=== PATIENT | male | born 1950 | race Caucasian/White ===

== ENCOUNTER → 2019-05-20 11:47 | Outpatient (BNVA) | payer OTHER, SELFPAY | PROVIDERS: Family Provider Internal Medicine; PCP Internal Medicine; Visit Provider Specialist | DX: M79.604 Pain in right leg (principal); M79.605 Pain in left leg; E11.9 Type 2 diabetes mellitus without complications; G60.9 Hereditary and idiopathic neuropathy, unspecified | CPT/HCPCS: 95913 ==

== ENCOUNTER 2019-05-27 05:38 | Outpatient (RCR) | payer OTHER, SELFPAY ==
[2019-05-22 18:20] LABS: Basophils # 0.1 10^3/uL (0.0-0.1); Eosinophils # 0.2 10^3/uL (0.0-0.8); Eosinophils % 2.1 %; Hematocrit 38.1 % (42.0-52.0); Hemoglobin 12.1 g/dL (11.7-16.6); Lymphocytes # 2.5 10^3/uL (0.8-4.8); Lymphocytes % 27.4 %; Mean Corpuscular HGB Conc 31.8 g/dL (30.0-36.0); Mean Corpuscular Hemoglobin 29.8 pg (28.0-34.0); Mean Corpuscular Volume 93.8 fL (80-94); Mean Platelet Volume 10.1 fL (7.4-10.4); Monocytes # 0.6 10^3/uL (0.2-0.9); Monocytes % 6.8 %; Neutrophils # 5.6 10^3/uL (1.8-7.7); Nucleated Red Blood Cells % 0 %; Platelet Count 232 10^3/cmm (130-400); Red Blood Count 4.06 10^6/uL (4.1-5.3); Red Cell Distribution Width 13.3 % (12.1-15.1); White Blood Count 9.1 10^3/uL (4.0-10.0)
[2019-05-23 00:09] LABS: Alanine Aminotransferase 16 U/L (0-41); Albumin Level 4.5 g/dL (3.5-5.2); Alkaline Phosphatase 83 IU/L (40-130); Anion Gap 21.3 (5-19); Aspartate Amino Transferase 17 U/L (0-40); Blood Urea Nitrogen 24 mg/dL (8-23); Calcium 9.9 mg/Dl (8.8-10.2); Carbon Dioxide 23 mmol/L (22-29); Chloride 96 mmol/L (98-107); Globulin 3.1 g/dL (1.3-4.6); Glucose 93 mg/dL (74-106); Potassium 4.3 mmol/L (3.5-5.1); Sodium 136 mmol/L (136-145); Total Bilirubin 0.3 mg/dL (0.15-1.2); Total Protein 7.6 g/dL (6.6-8.7)
--- NOTE | 2019-05-27 10:50 | ONC FU_ITS ---
Dr. Simental follow up note Patient: Amadeo Floyd Unit #: [id number]: 1950 Dicatated By: Sim Simental M.D.Date of Visit:May 27, 2019 Onc Med Follow-up/Prog Note History of Present Illness: Mr. Floyd is a 69-year-old gentleman who underwent colonoscopy at [facility] and was found to have a polyp. He was referred to Dr. Hernandez for repeat colonoscopy for polyp removal. The repeat colonoscopy was done on 12/20/2017 and showed nonobstructive medium-size, infiltrating, malignant appearing 5 cm x 3 cm mass in distal descending colon/hepatic flexure. A biopsy was obtained which confirmed adenocarcinoma. Subsequently, Mr Floyd underwent terminal ileum and colon right hemicolectomy on 01/01/2018. The mas was 5.5 x 4.7 x 1.5 cm and was 4 cm distal to the ileocecal valve. This pathology showed infiltrating adenocarcinoma, invading through muscularis propria into superficial serosal connective tissues and positive lymphovascular space invasion; 3 out of 17 lymph nodes were positive. KRAS mutation analysis was not requested at the time of surgery. Mr Floyd tolerated surgery well but developed postoperative complication including fever and wound dehiscence. He was followed by surgery and wound has healed well. CT scan of abdomen done on 12/20/2017 showed colonic wall thickening of ascending colon near hepatic flexure and no liver mass seen. Dr Simental evaluated Mr Floyd and offered him treatment with FOLFOX. Mr Floyd elected to proceed with chemotherapy. He had a left subclavian venous access device placed by Dr. Hernandez on 03/19/2018. He began his first cycle of FOLFOX on 03/26/2018. and completed 12 cycles of FOLFOX on 08/28/18 He did have follow-up CT of the abdomen and pelvis on 05/29/2018. He had numerous right renal cyst the largest measures 3.5 cm. There was no inguinal, retroperitoneal or periaortic lymphadenopathy. No hydronephrosis in either kidney. There are few prominent lymph nodes along the mesenteric root with some induration in the mesentery. He did have diverticulosis but no acute diverticulitis-no evidence of small or large bowel obstruction. Came for follow-up, denies any specific complaints, no nausea vomiting, no fever or chills, no jaundice, no abdominal pain but excessive gas now being controlled with [id number] anti-flatulence. No melena hematochezia, no diarrhea constipation. Appetite is good . Medications: Amitriptyline HCl 1 Tablet (of 10 mg) Oral at bedtime, BuPROPion HCl ER (XL) 1 Tablet (of 300 mg) Tablet SR 24 HR Oral daily, dilTIAZem HCl 1 Tablet (of 30 mg) Oral daily, Doxazosin Mesylate 0.5 Tablet (of 4 mg) Oral daily, Finasteride 1 Tablet (of 5 mg) Oral daily, Fluocinonide Cream Topical, Gabapentin 1 Capsule (of 300 mg) Oral t.i.d., HydroCHLOROthiazide 1 Tablet (of 25 mg) Oral daily, Insulin Glargine 35 Units (of 100 Units/mL) Subcutaneous daily, Loratadine 1 Tablet (of 10 mg) Oral daily, Losartan Potassium 1 Tablet (of 100 mg) Oral daily, MetFORMIN HCl 1 Tablet (of 850 mg) Oral t.i.d., Omeprazole 1 Capsule (of 20 mg) Capsule Delayed Release Oral daily, OxyCODONE HCl 1 Tablet (of 30 mg) Oral q 6 hours, Pravastatin Sodium 1 Tablet (of 80 mg) Oral daily, Vitamin D3 1 Tablet (of 2000 Units) Capsule Oral daily Allergies: Sulfa Antibiotics Review of Systems: Constitutional - Appetite is good and weight is stable. No fever, chills, hot flashes, or night sweats. Energy level is fair, ENMT - No sinus congestion/drainage. No mouth sores. No sore throat or difficulty swallowing, Hematologic/Lymphatic - No abnormal bruising or bleeding, Respiratory - No shortness of breath. No cough. No pleuritic pain or hemoptysis, Cardiovascular - No angina pain. No palpitations, Gastrointestinal - No nausea or vomiting. No heartburn or acid reflux. Negative for diarrhea. No blood in the stool or black stools. Positive for excessive gas, Genitourinary (M) - No dysuria or hematuria. No urinary frequency. No urgency or incontinence, Musculoskeletal - No joint or bone pain, Neurologic - No headache or dizziness. Pt reports moderate numbness in his hands, Psychiatric - No anxiety or depression. No insomnia. Vital Signs: Performed on May 27, 2019 08:27 Height - 69.00 in Weight - 215.3 lbs (HIGH) BSA - 2.13 sq.m BMI - 31.79 (HIGH) Temperature - 98.2 F (LOW) Pulse - 68 /min Respiration - 18 /min BP - 148/78 mm(hg) (HIGH) O2 Sat - 97 % Pain - 0 Performance Status: 1 - No physically strenuous activity, but ambulatory and able to carry out light or sedentary work (e.g. office work, light house work). (ECOG) Physical Examination: ENMT - No oral exudates, ulcers, masses, thrush or mucositis. Oropharynx clear. Tongue normal, Respiratory - Lungs are clear to auscultation without rhonchi or wheezing, Cardiovascular - Regular rate and rhythm of heart, Abdomen - Non-tender, non-distended, Good bowel sounds. No guarding or rebound tenderness. No pulsatile masses, Extremities - no edema. Lab/Imaging: Test performed on May 22, 2019 07:35 Neutrophils 0.1 10 3/uL Neutrophil % 2.1 % Test performed on Jan 08, 2019 08:10 Sodium 137 mmol/L Potassium 4.5 mmol/L Chloride 98 mmol/L CO2 25 mmol/L Anion Gap 18.5 BUN 21 mg/dL Creatinine 1.4 mg/dL Cr Clearance (Est) 68.6100 mL/min eGFR 50.1 mL/min Glucose 102 mg/dl Calcium 9.3 mg/dL Protein, Total 7.6 g/dL Albumin 4.4 g/dL Globulin 3.2 gm/dL Bilirubin, Total 0.3 mg/dL ALT (SGPT) 18 U/L AST (SGOT) 18 U/L Alkaline Phosphatase 101 U/L WBC 7.8 /cmm RBC 3.90 10 6/cmm HGB 12.1 g/dl HCT 36.3 % MCV 93.3 /cmm MCH 31.1 pg MCHC 33.3 g/dl RDW 13.7 % Platelet Count 240 10 3/cmm MPV 7.8 fl Lymphocytes 2.4 10 3/cmm Monocytes 0.5 10 3/cmm Eosinophils 0.1 10 3/cmm Basophils 0.0 10 3/cmm Lymphocyte % 30.3 % Monocyte % 6.6 % Eosinophil % 1.5 % Basophils % 0.5 % Impression: Infiltrating adenocarcinoma involving the right colon status post terminal ileum and colon, right hemicolectomy done on 01/01/2018 Final pathology report showed invasion through muscularis propria into superficial serosal connective tissues T3 Tumor size 5.5 x 4.7 x 1.5 cm Positive lymphovascular space invasion 3 out of 17 lymph node positive for metastatic disease N1 stage IIIa Anemia normocytic normochromic, etiology unclear could be multifactorial including iron deficiency, considering his age underlying myelodysplasia cannot be ruled out. discussed disease status and treatment options iith Mr Floyd. As he does have stage III disease, he is a candidate for adjuvant chemotherapy with FOLFOX. Mr Floyd agreed to pursue chemotherapy. He had a left-sided venous access device placed Dr. Hernandez on 03/19/2018 and began his first cycle of FOLFOX on 03/26/2018..Completed his adjuvant chemotherapy with FOLFOX ???12 on 08/28/2018 He did have follow-up CT of the abdomen and pelvis on 05/29/2018. . The CT reported that he had numerous right renal cyst the largest measures 3.5 cm. There was no inguinal, retroperitoneal or periaortic lymphadenopathy. No hydronephrosis in either kidney. There are few prominent lymph nodes along the mesenteric root with some induration in the mesentery. He did have diverticulosis but no acute diverticulitis-no evidence of small or large bowel obstruction Plan: Discussed with patient regarding his labs done on 05/22/2019 showed white blood count 9.1 hemoglobin 12.1 crit 38.1 platelets 232,000 CMP within normal limits Clinically, patient is doing well, no signs symptoms suggestive of recurrence of disease. As per patient his follow-up colonoscopy was done in April 2019 and it was normal. We will obtain the report and review. We will continue to monitor He will return to clinic in 6 months with CBC CMP. Unless there is a new symptoms, like jaundice or melena or hematochezia or abdominal pain.In the meantime we'll continue with monthly port Maintenance Signed By: Sim Simental M.D. <<Signature on File>>
== END 2019-06-14 23:59 | disposition home or self-care (01) ==
LOC: ONCMED 05:38
PROVIDERS: Family Provider Internal Medicine; PCP Internal Medicine; Visit Provider Internal Medicine Hematology & Oncology
DX: Z08 Encounter for follow-up examination after completed treatment for malignant neoplasm (principal); Z85.038 Personal history of other malignant neoplasm of large intestine; Z90.49 Acquired absence of other specified parts of digestive tract; Z92.21 Personal history of antineoplastic chemotherapy; K57.90 Diverticulosis of intestine, part unspecified, without perforation or abscess without bleeding; Z79.4 Long term (current) use of insulin; Z79.891 Long term (current) use of opiate analgesic
CPT/HCPCS: 80053; 85025; G0463

== ENCOUNTER 2019-06-28 06:03 | Outpatient (RCR) | payer OTHER, SELFPAY | END 2019-07-13 23:59 | disposition home or self-care (01) | LOC: ONCMED 06:03 | PROVIDERS: Family Provider Internal Medicine; PCP Internal Medicine; Visit Provider Internal Medicine Hematology & Oncology | DX: Z45.2 Encounter for adjustment and management of vascular access device (principal) | CPT/HCPCS: 96523 ==

== ENCOUNTER 2019-07-26 06:00 | Outpatient (RCR) | payer OTHER, SELFPAY | END 2019-08-13 23:59 | disposition home or self-care (01) | LOC: ONCMED 06:00 | PROVIDERS: Family Provider Internal Medicine; PCP Internal Medicine; Visit Provider Internal Medicine Hematology & Oncology | DX: Z45.2 Encounter for adjustment and management of vascular access device (principal) | CPT/HCPCS: 96523 ==

== ENCOUNTER → 2019-07-31 07:41 | Outpatient (BNVA) | payer OTHER, SELFPAY | PROVIDERS: Family Provider Internal Medicine; PCP Internal Medicine; Visit Provider Specialist | DX: M79.7 Fibromyalgia (principal); E53.8 Deficiency of other specified B group vitamins; G62.9 Polyneuropathy, unspecified; G56.03 Carpal tunnel syndrome, bilateral upper limbs; Z87.891 Personal history of nicotine dependence | CPT/HCPCS: 99214; J1030; J3490 ==

== ENCOUNTER 2019-08-26 07:07 | Outpatient (RCR) | payer OTHER, SELFPAY | END 2019-09-12 23:59 | disposition home or self-care (01) | LOC: ONCMED 07:07 | PROVIDERS: Family Provider Internal Medicine; PCP Internal Medicine; Visit Provider Internal Medicine Hematology & Oncology | DX: Z45.2 Encounter for adjustment and management of vascular access device (principal); Z85.038 Personal history of other malignant neoplasm of large intestine | CPT/HCPCS: 96523 ==

== ENCOUNTER 2019-09-25 07:09 | Outpatient (RCR) | payer OTHER, SELFPAY | END 2019-10-13 23:59 | disposition home or self-care (01) | LOC: ONCMED 07:09 | PROVIDERS: PCP Internal Medicine; Visit Provider Internal Medicine Hematology & Oncology | DX: Z45.2 Encounter for adjustment and management of vascular access device (principal); Z85.038 Personal history of other malignant neoplasm of large intestine | CPT/HCPCS: 96523 ==

== ENCOUNTER 2019-10-25 06:59 | Outpatient (CLI) | payer OTHER, SELFPAY | END 2019-10-25 07:00 | disposition home or self-care (01) | PROVIDERS: PCP Internal Medicine; Visit Provider Internal Medicine Hematology & Oncology | DX: Z45.2 Encounter for adjustment and management of vascular access device (principal); Z85.038 Personal history of other malignant neoplasm of large intestine; K52.1 Toxic gastroenteritis and colitis | CPT/HCPCS: 96523 ==

== ENCOUNTER → 2019-11-06 08:43 | Outpatient (BNVA) | payer OTHER, SELFPAY | PROVIDERS: PCP Internal Medicine; Visit Provider Specialist | DX: E53.8 Deficiency of other specified B group vitamins (principal); M79.7 Fibromyalgia; R29.90 Unspecified symptoms and signs involving the nervous system; G60.9 Hereditary and idiopathic neuropathy, unspecified | CPT/HCPCS: 20550; 99213; J1030; J3490 ==

== ENCOUNTER 2019-11-22 09:55 | Outpatient (CLI) | payer OTHER, SELFPAY ==
[2019-11-22 14:38] LABS: Basophils # 0.1 10^3/uL (0.0-0.1); Basophils % 0.8 %; Eosinophils # 0.1 10^3/uL (0.0-0.8); Eosinophils % 1.2 %; Hematocrit 38.7 % (42.0-52.0); Hemoglobin 12.5 g/dL (11.7-16.6); Lymphocytes # 3.8 10^3/uL (0.8-4.8); Lymphocytes % 35.3 %; Mean Corpuscular HGB Conc 32.3 g/dL (30.0-36.0); Mean Corpuscular Hemoglobin 30.4 pg (28.0-34.0); Mean Corpuscular Volume 94.2 fL (80-94); Monocytes # 0.8 10^3/uL (0.2-0.9); Monocytes % 7.7 %; Neutrophils % 54.4 %; Nucleated Red Blood Cells % 0 %; Platelet Count 264 10^3/cmm (130-400); Red Blood Count 4.11 10^6/uL (4.1-5.3); White Blood Count 10.9 10^3/uL (4.0-10.0)
[2019-11-22 14:57] LABS: Alanine Aminotransferase 22 U/L (0-41); Albumin Level 4.6 g/dL (3.5-5.2); Alkaline Phosphatase 65 IU/L (40-130); Aspartate Amino Transferase 23 U/L (0-40); Blood Urea Nitrogen 19 mg/dL (8-23); Carbon Dioxide 24 mmol/L (22-29); Chloride 97 mmol/L (98-107); Globulin 3.3 g/dL (1.3-4.6); Osmolality Calculated 277 mOsm/kg (285-295); Sodium 137 mmol/L (136-145); Total Bilirubin 0.4 mg/dL (0.15-1.2); Total Protein 7.9 g/dL (6.6-8.7)
[2019-11-22 15:06] LABS: Anion Gap 20.2 (5-19); Potassium 4.2 mmol/L (3.5-5.1)
[2019-11-22 15:09] LABS: Glucose 27 mg/dL (65-115)
== END 2019-11-22 09:56 | disposition home or self-care (01) ==
LOC: ONCMED 15:03
PROVIDERS: PCP Internal Medicine; Visit Provider Internal Medicine Hematology & Oncology
DX: Z85.038 Personal history of other malignant neoplasm of large intestine (principal); K52.1 Toxic gastroenteritis and colitis; T45.1X5A Adverse effect of antineoplastic and immunosuppressive drugs, initial encounter; F41.9 Anxiety disorder, unspecified; F32.9 Major depressive disorder, single episode, unspecified; E78.5 Hyperlipidemia, unspecified; I10 Essential (primary) hypertension; K58.9 Irritable bowel syndrome, unspecified; L40.9 Psoriasis, unspecified; E11.9 Type 2 diabetes mellitus without complications
CPT/HCPCS: 80053; 85025

== ENCOUNTER 2019-11-25 07:42 | Outpatient (CLI) | payer OTHER, SELFPAY ==
--- NOTE | 2019-11-25 17:08 | ONC FU_ITS ---
Dr. Simental follow up note Patient: Amadeo Floyd Unit #: [id number]: 1950 Dicatated By: Sim Simental M.D.Date of Visit:Nov 25, 2019 Onc Med Follow-up/Prog Note History of Present Illness: Mr. Floyd is a 69-year-old gentleman who underwent colonoscopy at [facility] and was found to have a polyp. He was referred to Dr. Hernandez for repeat colonoscopy for polyp removal. The repeat colonoscopy was done on 12/20/2017 and showed nonobstructive medium-size, infiltrating, malignant appearing 5 cm x 3 cm mass in distal descending colon/hepatic flexure. A biopsy was obtained which confirmed adenocarcinoma. Subsequently, Mr Floyd underwent terminal ileum and colon right hemicolectomy on 01/01/2018. The mas was 5.5 x 4.7 x 1.5 cm and was 4 cm distal to the ileocecal valve. This pathology showed infiltrating adenocarcinoma, invading through muscularis propria into superficial serosal connective tissues and positive lymphovascular space invasion; 3 out of 17 lymph nodes were positive. KRAS mutation analysis was not requested at the time of surgery. Mr Floyd tolerated surgery well but developed postoperative complication including fever and wound dehiscence. He was followed by surgery and wound has healed well. CT scan of abdomen done on 12/20/2017 showed colonic wall thickening of ascending colon near hepatic flexure and no liver mass seen. evaluated Mr Floyd and offered him treatment with FOLFOX. Mr Floyd elected to proceed with chemotherapy. He had a left subclavian venous access device placed by Dr. Hernandez on 03/19/2018. He began his first cycle of FOLFOX on 03/26/2018. and completed 12 cycles of FOLFOX on 4/16/19 He did have follow-up CT of the abdomen and pelvis on 05/29/2018. He had numerous right renal cyst the largest measures 3.5 cm. There was no inguinal, retroperitoneal or periaortic lymphadenopathy. No hydronephrosis in either kidney. There are few prominent lymph nodes along the mesenteric root with some induration in the mesentery. He did have diverticulosis but no acute diverticulitis-no evidence of small or large bowel obstruction. Came for follow-up, denies any specific complaints, no fever chills, no nausea or vomiting no diarrhea constipation, on Monday lab called me in the afternoon with severe hypoglycemia his glucose was 27, patient was called twice but no response. As per patient when labs were drawn day before at that time he was feeling weak and shaky so he took some strawberry jam and that did help him after that on Monday he was fine. Patient said his blood sugar has been going up and down and his PMD is adjusting his antidiabetic medications. Otherwise denies any melena or hematochezia denies any nausea or vomiting denies any diarrhea now as it responded well to the rice powder prescribed by his PMD. . Medications: Amitriptyline HCl 1 Tablet (of 10 mg) Oral at bedtime, BuPROPion HCl ER (XL) 1 Tablet (of 150 mg) Tablet SR 24 HR Oral daily, dilTIAZem HCl 1 Tablet (of 120 mg) Oral daily, Doxazosin Mesylate 0.5 Tablet (of 4 mg) Oral daily, Etodolac 1 Capsule (of 300 mg) Oral b.i.d., Ferrous Sulfate 1 Tablet (of 325 (65 fe) mg) Oral daily, Finasteride 1 Tablet (of 5 mg) Oral daily, Fluocinonide Cream Topical, Gabapentin 1 Capsule (of 300 mg) Oral t.i.d., HydroCHLOROthiazide 1 Tablet (of 25 mg) Oral daily, Insulin Glargine 35 Units (of 100 Units/mL) Subcutaneous daily, Loratadine 1 Tablet (of 10 mg) Oral daily, Losartan Potassium 1 Tablet (of 100 mg) Oral daily, Lyrica 1 Capsule (of 75 mg) Oral b.i.d., MetFORMIN HCl 1 Tablet (of 850 mg) Oral t.i.d., Omeprazole 1 Capsule (of 20 mg) Capsule Delayed Release Oral daily, OxyCODONE HCl 1 Tablet (of 30 mg) Oral q 6 hours, Pravastatin Sodium 1 Tablet (of 80 mg) Oral daily, Vitamin D3 1 Tablet (of 2000 Units) Capsule Oral daily Allergies: Sulfa Antibiotics Review of Systems: Constitutional - Appetite is good and weight is stable. No fever, chills, hot flashes, or night sweats. Energy level is fair, ENMT - No sinus congestion/drainage. No mouth sores. No sore throat or difficulty swallowing, Hematologic/Lymphatic - No abnormal bruising or bleeding, Respiratory - No shortness of breath. No cough. No pleuritic pain or hemoptysis, Cardiovascular - No angina pain. No palpitations, Gastrointestinal - No nausea or vomiting. No heartburn or acid reflux. Negative for diarrhea. No blood in the stool or black stools. Positive for excessive gas, Genitourinary (M) - No dysuria or hematuria. No urinary frequency. No urgency or incontinence, Musculoskeletal - No joint or bone pain, Neurologic - No headache or dizziness. Pt reports moderate numbness in his hands, Psychiatric - No anxiety or depression. No insomnia. Vital Signs: Performed on Nov 25, 2019 08:46 Height - 69.00 in Weight - 218.6 lbs (HIGH) BSA - 2.15 sq.m BMI - 32.28 (HIGH) Temperature - 97.9 F (LOW) Pulse - 68 /min Respiration - 24 /min BP - 144/79 mm(hg) (HIGH) O2 Sat - 97 % Pain - 0 Performance Status: 0 - Fully active, able to carry on all predisease activities without restrictions. (ECOG) Physical Examination: ENMT - No mouth sores, no thrush, no jaundice, Respiratory - Lungs are clear, Cardiovascular - Regular rate and rhythm of heart, Abdomen - Soft, bowel sounds present, nontender, Extremities - No visible edema. Lab/Imaging: Most recent lab results are not available for this patient. Impression: Infiltrating adenocarcinoma involving the right colon status post terminal ileum and colon, right hemicolectomy done on 01/01/2018 Final pathology report showed invasion through muscularis propria into superficial serosal connective tissues T3 Tumor size 5.5 x 4.7 x 1.5 cm Positive lymphovascular space invasion 3 out of 17 lymph node positive for metastatic disease N1 stage IIIa Anemia normocytic normochromic, etiology unclear could be multifactorial including iron deficiency, considering his age underlying myelodysplasia cannot be ruled out. discussed disease status and treatment options iith Mr Floyd. As he does have stage III disease, he is a candidate for adjuvant chemotherapy with FOLFOX. Mr Floyd agreed to pursue chemotherapy. He had a left-sided venous access device placed Dr. Hernandez on 03/19/2018 and began his first cycle of FOLFOX on 03/26/2018..Completed his adjuvant chemotherapy with FOLFOX ???12 on 08/28/2018 He did have follow-up CT of the abdomen and pelvis on 05/29/2018. . The CT reported that he had numerous right renal cyst the largest measures 3.5 cm. There was no inguinal, retroperitoneal or periaortic lymphadenopathy. No hydronephrosis in either kidney. There are few prominent lymph nodes along the mesenteric root with some induration in the mesentery. He did have diverticulosis but no acute diverticulitis-no evidence of small or large bowel obstruction Plan: Discussed with patient regarding his labs checked on November 22, 2019 white blood count 10.9 hemoglobin 12.5 g hematocrit 38.7 platelets 264,000 CMP within normal limit except glucose was 27 Clinically, patient is doing well, no signs symptom suggestive of recurrence of disease. At this point we will continue to monitor in the meantime he will continue with monthly port maintenance and he will return to clinic in 4 months with CBC CMP As far as episode of hypoglycemia is concerned, patient said his blood sugar has been fluctuating, and his PMD is adjusting his antidiabetic medications. Signed By: Sim Simental M.D. <<Signature on File>>
== END 2019-11-25 07:43 | disposition home or self-care (01) ==
LOC: ONCMED 07:43
PROVIDERS: Visit Provider Internal Medicine Hematology & Oncology
DX: Z08 Encounter for follow-up examination after completed treatment for malignant neoplasm (principal); Z85.038 Personal history of other malignant neoplasm of large intestine; Z45.2 Encounter for adjustment and management of vascular access device; K57.30 Diverticulosis of large intestine without perforation or abscess without bleeding; Z90.49 Acquired absence of other specified parts of digestive tract; Z92.21 Personal history of antineoplastic chemotherapy
CPT/HCPCS: 96523; G0463

== ENCOUNTER 2019-12-27 07:33 | Outpatient (CLI) | payer OTHER, SELFPAY | END 2019-12-27 07:34 | disposition home or self-care (01) | LOC: ONCMED 07:34 | PROVIDERS: Visit Provider Internal Medicine Hematology & Oncology | DX: Z45.2 Encounter for adjustment and management of vascular access device (principal) | CPT/HCPCS: 96523 ==

== ENCOUNTER 2020-01-24 06:10 | Outpatient (CLI) | payer OTHER, SELFPAY | END 2020-01-24 06:11 | disposition home or self-care (01) | LOC: ONCMED 06:11 | PROVIDERS: Visit Provider Internal Medicine Hematology & Oncology | DX: Z45.2 Encounter for adjustment and management of vascular access device (principal) | CPT/HCPCS: 96523 ==

== ENCOUNTER 2020-02-25 06:02 | Outpatient (CLI) | payer OTHER, SELFPAY | END 2020-02-25 06:03 | disposition home or self-care (01) | LOC: ONCMED 06:03 | PROVIDERS: Visit Provider Internal Medicine Hematology & Oncology | DX: Z45.2 Encounter for adjustment and management of vascular access device (principal) | CPT/HCPCS: 96523 ==

== ENCOUNTER 2020-04-14 07:31 | Outpatient (CLI) | payer OTHER, SELFPAY ==
[2020-04-14 08:35] LABS: Basophils # 0.1 10^3/uL (0.0-0.1); Basophils % 0.8 %; Eosinophils # 0.2 10^3/uL (0.0-0.8); Eosinophils % 2.3 %; Hematocrit 38.2 % (42.0-52.0); Lymphocytes # 2.2 10^3/uL (0.8-4.8); Lymphocytes % 29.8 %; Mean Corpuscular HGB Conc 31.4 g/dL (30.0-36.0); Mean Corpuscular Hemoglobin 29.5 pg (28.0-34.0); Mean Corpuscular Volume 93.9 fL (80-94); Mean Platelet Volume 9.2 fL (7.4-10.4); Monocytes # 0.6 10^3/uL (0.2-0.9); Monocytes % 8.1 %; Neutrophils # 4.27 10^3/uL (1.8-7.7); Neutrophils % 58.3 %; Nucleated Red Blood Cells % 0 %; Platelet Count 219 10^3/cmm (130-400); Red Blood Count 4.07 10^6/uL (4.1-5.3); Red Cell Distribution Width 13.4 % (12.1-15.1); White Blood Count 7.3 10^3/uL (4.0-10.0)
[2020-04-14 08:56] LABS: Alanine Aminotransferase 19 U/L (0-41); Albumin Level 4.5 g/dL (3.5-5.2); Alkaline Phosphatase 76 IU/L (40-130); Anion Gap 19.1 (5-19); Aspartate Amino Transferase 16 U/L (0-40); Blood Urea Nitrogen 18 mg/dL (8-23); Calcium 9.8 mg/dL (8.5-10.5); Carbon Dioxide 25 mmol/L (22-29); Chloride 98 mmol/L (98-107); Globulin 2.8 g/dL (1.3-4.6); Glucose 142 mg/dL (65-115); Osmolality Calculated 290 mOsm/kg (285-295); Potassium 4.1 mmol/L (3.5-5.1); Sodium 138 mmol/L (136-145); Total Bilirubin 0.2 mg/dL (0.15-1.2); Total Protein 7.3 g/dL (6.6-8.7)
== END 2020-04-14 07:32 | disposition home or self-care (01) ==
LOC: ONCMED 07:31
PROVIDERS: Visit Provider Internal Medicine Hematology & Oncology
DX: Z45.2 Encounter for adjustment and management of vascular access device (principal); Z85.038 Personal history of other malignant neoplasm of large intestine
CPT/HCPCS: 36415; 80053; 85025; 96523

== ENCOUNTER 2020-04-16 05:31 | Outpatient (CLI) | payer OTHER, SELFPAY ==
--- NOTE | 2020-04-16 09:14 | ONC FU_ITS ---
Dr. Simental follow up note Patient: Amadeo Floyd Unit #: [id number]: 1950 Dicatated By: Sim Simental M.D.Date of Visit:Apr 16, 2020 Onc Med Follow-up/Prog Note History of Present Illness: Mr. Floyd is a 70-year-old gentleman who underwent colonoscopy at [facility] and was found to have a polyp. He was referred to Dr. Hernandez for repeat colonoscopy for polyp removal. The repeat colonoscopy was done on 12/20/2017 and showed nonobstructive medium-size, infiltrating, malignant appearing 5 cm x 3 cm mass in distal descending colon/hepatic flexure. A biopsy was obtained which confirmed adenocarcinoma. Subsequently, Mr Floyd underwent terminal ileum and colon right hemicolectomy on 01/01/2018. The mas was 5.5 x 4.7 x 1.5 cm and was 4 cm distal to the ileocecal valve. This pathology showed infiltrating adenocarcinoma, invading through muscularis propria into superficial serosal connective tissues and positive lymphovascular space invasion; 3 out of 17 lymph nodes were positive. KRAS mutation analysis was not requested at the time of surgery. Mr Floyd tolerated surgery well but developed postoperative complication including fever and wound dehiscence. He was followed by surgery and wound has healed well. CT scan of abdomen done on 12/20/2017 showed colonic wall thickening of ascending colon near hepatic flexure and no liver mass seen. evaluated Mr Floyd and offered him treatment with FOLFOX. Mr Floyd elected to proceed with chemotherapy. He had a left subclavian venous access device placed by Dr. Hernandez on 03/19/2018. He began his first cycle of FOLFOX on 03/26/2018. and completed 12 cycles of FOLFOX on 4/16/19 He did have follow-up CT of the abdomen and pelvis on 05/29/2018. He had numerous right renal cyst the largest measures 3.5 cm. There was no inguinal, retroperitoneal or periaortic lymphadenopathy. No hydronephrosis in either kidney. There are few prominent lymph nodes along the mesenteric root with some induration in the mesentery. He did have diverticulosis but no acute diverticulitis-no evidence of small or large bowel obstruction. Came for follow-up, denies any specific complaint except off and on diarrhea especially with fried food and [facility] send him a special 'drink' for diarrhea, which he takes in the morning but does remember the name, probably probiotics. No constipation, no jaundice, no melena or hematochezia, no hemoptysis or hematemesis, no abdominal pain except off and on discomfort in the left abdominal wall. No fever chills, appetite is good . Medications: Amitriptyline HCl 1 Tablet (of 10 mg) Oral at bedtime, BuPROPion HCl ER (XL) 1 Tablet (of 150 mg) Tablet SR 24 HR Oral daily, dilTIAZem HCl 1 Tablet (of 120 mg) Oral daily, Doxazosin Mesylate 0.5 Tablet (of 4 mg) Oral daily, Etodolac 1 Capsule (of 300 mg) Oral b.i.d., Ferrous Sulfate 1 Tablet (of 325 (65 fe) mg) Oral daily, Finasteride 1 Tablet (of 5 mg) Oral daily, Fluocinonide Cream Topical, Gabapentin 1 Capsule (of 300 mg) Oral t.i.d., HydroCHLOROthiazide 1 Tablet (of 25 mg) Oral daily, Insulin Glargine 35 Units (of 100 Units/mL) Subcutaneous daily, Loratadine 1 Tablet (of 10 mg) Oral daily, Losartan Potassium 1 Tablet (of 100 mg) Oral daily, Lyrica 1 Capsule (of 75 mg) Oral b.i.d., MetFORMIN HCl 1 Tablet (of 850 mg) Oral t.i.d., Omeprazole 1 Capsule (of 20 mg) Capsule Delayed Release Oral daily, OxyCODONE HCl 1 Tablet (of 30 mg) Oral q 6 hours, Pravastatin Sodium 1 Tablet (of 80 mg) Oral daily, Vitamin D3 1 Tablet (of 2000 Units) Capsule Oral daily Allergies: Sulfa Antibiotics Review of Systems: Constitutional - Appetite is good and weight is stable. No fever, chills, hot flashes, or night sweats. Energy level is fair, ENMT - No sinus congestion/drainage. No mouth sores. No sore throat or difficulty swallowing, Hematologic/Lymphatic - No abnormal bruising or bleeding, Respiratory - No shortness of breath. No cough. No pleuritic pain or hemoptysis, Cardiovascular - No angina pain. No palpitations, Gastrointestinal - No nausea or vomiting. No heartburn or acid reflux. Negative for diarrhea. No blood in the stool or black stools. Positive for excessive gas, Genitourinary (M) - No dysuria or hematuria. No urinary frequency. No urgency or incontinence, Musculoskeletal - No joint or bone pain, Neurologic - No headache or dizziness. Pt reports moderate numbness in his hands, Psychiatric - No anxiety or depression. No insomnia. Vital Signs: Performed on Apr 16, 2020 08:28 Height - 69.00 in Weight - 220.8 lbs (HIGH) BSA - 2.15 sq.m BMI - 32.61 (HIGH) Temperature - 98.4 F Pulse - 72 /min Respiration - 20 /min BP - 150/79 mm(hg) (HIGH) O2 Sat - 97 % Pain - 0 Performance Status: 0 - Fully active, able to carry on all predisease activities without restrictions. (ECOG) Physical Examination: ENMT - No mouth sores, no thrush, no jaundice, Respiratory - Lungs are clear to auscultation, Cardiovascular - Regular rate and rhythm of heart, Abdomen - Soft, bowel sounds present, Extremities - No visible edema. Lab/Imaging: Test performed on Nov 22, 2019 09:55 Sodium 137 mmol/L Potassium 4.2 mmol/L Chloride 97 mmol/L CO2 24 mmol/L Anion Gap 20.2 BUN 19 mg/dL Creatinine 1.1 mg/dL Cr Clearance (Est) 86.0700 mL/min Glucose 27 mg/dL Calcium 10.0 mg/dL Protein, Total 7.9 g/dL Albumin 4.6 g/dL Globulin 3.3 g/dL Bilirubin, Total 0.4 mg/dL ALT (SGPT) 22 U/L AST (SGOT) 23 U/L Alkaline Phosphatase 65 IU/L WBC 10.9 10 3/uL RBC 4.11 10 6/uL HGB 12.5 g/dL HCT 38.7 % MCV 94.2 fL MCH 30.4 pg MCHC 32.3 g/dL RDW 14.0 % Platelet Count 264 10 3/cmm MPV 10.0 fL Neutrophils 5.90 10 3/uL Lymphocytes 3.8 10 3/uL Monocytes 0.8 10 3/uL Eosinophils 0.1 10 3/uL Basophils 0.1 10 3/uL Neutrophil % 54.4 % Lymphocyte % 35.3 % Monocyte % 7.7 % Eosinophil % 1.2 % Basophils % 0.8 % NRBC % 0 % Impression: Infiltrating adenocarcinoma involving the right colon status post terminal ileum and colon, right hemicolectomy done on 01/01/2018 Final pathology report showed invasion through muscularis propria into superficial serosal connective tissues T3 Tumor size 5.5 x 4.7 x 1.5 cm Positive lymphovascular space invasion 3 out of 17 lymph node positive for metastatic disease N1 stage IIIa Anemia normocytic normochromic, etiology unclear could be multifactorial including iron deficiency, considering his age underlying myelodysplasia cannot be ruled out. discussed disease status and treatment options iith Mr Floyd. As he does have stage III disease, he is a candidate for adjuvant chemotherapy with FOLFOX. Mr Floyd agreed to pursue chemotherapy. He had a left-sided venous access device placed Dr. Hernandez on 03/19/2018 and began his first cycle of FOLFOX on 03/26/2018..Completed his adjuvant chemotherapy with FOLFOX ???12 on 08/28/2018 He did have follow-up CT of the abdomen and pelvis on 05/29/2018. . The CT reported that he had numerous right renal cyst the largest measures 3.5 cm. There was no inguinal, retroperitoneal or periaortic lymphadenopathy. No hydronephrosis in either kidney. There are few prominent lymph nodes along the mesenteric root with some induration in the mesentery. He did have diverticulosis but no acute diverticulitis-no evidence of small or large bowel obstruction Plan: Discussed with patient regarding his labs white blood count 7.3 hemoglobin 12 hematocrit 38.2 platelets 219,000 CMP within normal limits except glucose 142 Clinically, patient is doing well with no new signs symptoms suggestive of recurrence of disease. Lab work-up is within normal range. As far as his diarrhea especially with fried food, is concerned, probably due to bile malabsorption, patient was advised to avoid fried food if is not possible, cholestyramine can be tried. As far as left abdominal wall discomfort is concerned probably musculoskeletal in origin patient is obese, could not feel any intra-abdominal mass, patient was advised in case there is a worsening of symptoms, he need to call us, then will consider radiological studies He will return to clinic in 6 months with CBC CMP in the meantime continue with monthly port flush Signed By: Sim Simental M.D. <<Signature on File>>
== END 2020-04-16 05:32 | disposition home or self-care (01) ==
LOC: ONCMED 05:32
PROVIDERS: Visit Provider Internal Medicine Hematology & Oncology
DX: Z08 Encounter for follow-up examination after completed treatment for malignant neoplasm (principal); Z85.038 Personal history of other malignant neoplasm of large intestine; R19.7 Diarrhea, unspecified; Q61.02 Congenital multiple renal cysts; K57.90 Diverticulosis of intestine, part unspecified, without perforation or abscess without bleeding; Z90.49 Acquired absence of other specified parts of digestive tract; Z92.21 Personal history of antineoplastic chemotherapy
CPT/HCPCS: G0463

== ENCOUNTER 2020-05-20 11:00 | Outpatient (CLI) | payer OTHER, SELFPAY | END 2020-05-20 11:01 | disposition home or self-care (01) | LOC: ONCMED 11:02 | PROVIDERS: Visit Provider Nurse Practitioner | DX: Z45.2 Encounter for adjustment and management of vascular access device (principal) | CPT/HCPCS: 96523 ==

== ENCOUNTER 2020-06-18 10:52 | Outpatient (CLI) | payer OTHER, SELFPAY | END 2020-06-18 10:53 | disposition home or self-care (01) | LOC: ONCMED 10:53 | PROVIDERS: Visit Provider Nurse Practitioner | DX: Z45.2 Encounter for adjustment and management of vascular access device (principal) | CPT/HCPCS: 96523 ==

== ENCOUNTER 2020-07-16 10:01 | Outpatient (CLI) | payer OTHER, SELFPAY | END 2020-07-16 10:02 | disposition home or self-care (01) | LOC: ONCMED 10:03 | PROVIDERS: Visit Provider Nurse Practitioner | DX: Z45.2 Encounter for adjustment and management of vascular access device (principal) | CPT/HCPCS: 96523 ==

== ENCOUNTER → 2020-08-12 07:50 | Outpatient (BNVA) | payer OTHER, SELFPAY | PROVIDERS: Visit Provider Specialist | DX: E11.42 Type 2 diabetes mellitus with diabetic polyneuropathy (principal); E53.8 Deficiency of other specified B group vitamins; M79.7 Fibromyalgia; Z79.84 Long term (current) use of oral hypoglycemic drugs; Z87.891 Personal history of nicotine dependence | CPT/HCPCS: 99213 ==

== ENCOUNTER 2020-08-20 10:24 | Outpatient (CLI) | payer OTHER, SELFPAY | END 2020-08-20 10:25 | disposition home or self-care (01) | LOC: ONCMED 10:25 | PROVIDERS: PCP Nurse Practitioner Family; Visit Provider Nurse Practitioner | DX: Z45.2 Encounter for adjustment and management of vascular access device (principal) | CPT/HCPCS: 96523 ==

== ENCOUNTER 2020-09-17 09:27 | Outpatient (CLI) | payer OTHER, SELFPAY | END 2020-09-17 09:28 | disposition home or self-care (01) | LOC: ONCMED 09:27 | PROVIDERS: PCP Nurse Practitioner Family; Visit Provider Nurse Practitioner | DX: Z45.2 Encounter for adjustment and management of vascular access device (principal) | CPT/HCPCS: 96523 ==

== ENCOUNTER 2020-10-13 08:14 | Outpatient (CLI) | payer OTHER, SELFPAY ==
[2020-10-13 09:01] LABS: Basophils # 0.1 10^3/uL (0.0-0.1); Basophils % 0.7 %; Eosinophils # 0.2 10^3/uL (0.0-0.8); Eosinophils % 3.4 %; Hematocrit 36.6 % (42.0-52.0); Hemoglobin 11.9 g/dL (11.7-16.6); Lymphocytes # 1.3 10^3/uL (0.8-4.8); Lymphocytes % 18.9 %; Mean Corpuscular HGB Conc 32.5 g/dL (30.0-36.0); Mean Corpuscular Hemoglobin 29.5 pg (28.0-34.0); Mean Corpuscular Volume 90.8 fL (80-94); Monocytes # 0.5 10^3/uL (0.2-0.9); Neutrophils # 4.87 10^3/uL (1.8-7.7); Neutrophils % 69.3 %; Nucleated Red Blood Cells % 0 %; Platelet Count 219 10^3/cmm (130-400); Red Blood Count 4.03 10^6/uL (4.1-5.3); Red Cell Distribution Width 13.2 % (12.1-15.1)
[2020-10-13 09:23] LABS: Alanine Aminotransferase 19 U/L (0-41); Albumin Level 4.3 g/dL (3.5-5.2); Alkaline Phosphatase 67 IU/L (40-130); Anion Gap 19.2 (5-19); Aspartate Amino Transferase 18 U/L (0-40); Blood Urea Nitrogen 22 mg/dL (8-23); Calcium 9.1 mg/dL (8.5-10.5); Carbon Dioxide 26 mmol/L (22-29); Chloride 93 mmol/L (98-107); Globulin 2.8 g/dL (1.3-4.6); Glucose 365 mg/dL (65-115); Osmolality Calculated 296 mOsm/kg (285-295); Potassium 4.2 mmol/L (3.5-5.1); Sodium 134 mmol/L (136-145); Total Bilirubin 0.3 mg/dL (0.15-1.2); Total Protein 7.1 g/dL (6.6-8.7)
== END 2020-10-13 08:15 | disposition home or self-care (01) ==
PROVIDERS: PCP Nurse Practitioner Family; Visit Provider Internal Medicine Hematology & Oncology
DX: C18.4 Malignant neoplasm of transverse colon (principal); Z79.899 Other long term (current) drug therapy
CPT/HCPCS: 36415; 80053; 85025; 96523

== ENCOUNTER 2020-10-16 05:47 | Outpatient (CLI) | payer OTHER, SELFPAY ==
--- NOTE | 2020-10-16 08:41 | ONC FU_ITS ---
Dr. Simental follow up note Patient: Amadeo Floyd Unit #: [id number]: [id number] Dicatated By: Sim Simental M.D.Date of Visit:Oct 16, 2020 Onc Med Follow-up/Prog Note History of Present Illness: Mr. Floyd is a 70-year-old gentleman who underwent colonoscopy at [facility] and was found to have a polyp. He was referred to Dr. Hernandez for repeat colonoscopy for polyp removal. The repeat colonoscopy was done on 12/20/2017 and showed nonobstructive medium-size, infiltrating, malignant appearing 5 cm x 3 cm mass in distal descending colon/hepatic flexure. A biopsy was obtained which confirmed adenocarcinoma. Subsequently, Mr Floyd underwent terminal ileum and colon right hemicolectomy on 01/01/2018. The mas was 5.5 x 4.7 x 1.5 cm and was 4 cm distal to the ileocecal valve. This pathology showed infiltrating adenocarcinoma, invading through muscularis propria into superficial serosal connective tissues and positive lymphovascular space invasion; 3 out of 17 lymph nodes were positive. KRAS mutation analysis was not requested at the time of surgery. Mr Floyd tolerated surgery well but developed postoperative complication including fever and wound dehiscence. He was followed by surgery and wound has healed well. CT scan of abdomen done on 12/20/2017 showed colonic wall thickening of ascending colon near hepatic flexure and no liver mass seen. evaluated Mr Floyd and offered him treatment with FOLFOX. Mr Floyd elected to proceed with chemotherapy. He had a left subclavian venous access device placed by Dr. Hernandez on 03/19/2018. He began his first cycle of FOLFOX on 03/26/2018. and completed 12 cycles of FOLFOX on 08/28/18 He did have follow-up CT of the abdomen and pelvis on 05/29/2018. He had numerous right renal cyst the largest measures 3.5 cm. There was no inguinal, retroperitoneal or periaortic lymphadenopathy. No hydronephrosis in either kidney. There are few prominent lymph nodes along the mesenteric root with some induration in the mesentery. He did have diverticulosis but no acute diverticulitis-no evidence of small or large bowel obstruction. Came for follow-up, complaining of generalized weakness and fatigue, which is a chronic problem and also uses 2 pillows at night but rarely get restful sleep. No fever or chills, no nausea or vomiting, no diarrhea or constipation, no melena or hematochezia, no abdominal pain, no jaundice, no chest pain or shortness of breath, no headaches blurred vision or double vision. As per patient his Port-A-Cath is not functioning properly only infusion no blood draws. And patient wants Port-A-Cath out . Medications: Amitriptyline HCl 1 Tablet (of 10 mg) Oral at bedtime, BuPROPion HCl ER (XL) 1 Tablet (of 150 mg) Tablet SR 24 HR Oral daily, dilTIAZem HCl 1 Tablet (of 120 mg) Oral daily, Doxazosin Mesylate 0.5 Tablet (of 4 mg) Oral daily, Etodolac 1 Capsule (of 300 mg) Oral b.i.d., Ferrous Sulfate 1 Tablet (of 325 (65 fe) mg) Oral daily, Finasteride 1 Tablet (of 5 mg) Oral daily, Fluocinonide Cream Topical, Gabapentin 1 Capsule (of 300 mg) Oral t.i.d., HydroCHLOROthiazide 1 Tablet (of 25 mg) Oral daily, Insulin Glargine 35 Units (of 100 Units/mL) Subcutaneous daily, Loratadine 1 Tablet (of 10 mg) Oral daily, Losartan Potassium 1 Tablet (of 100 mg) Oral daily, Lyrica 1 Capsule (of 75 mg) Oral b.i.d., MetFORMIN HCl 1 Tablet (of 850 mg) Oral t.i.d., Omeprazole 1 Capsule (of 20 mg) Capsule Delayed Release Oral daily, OxyCODONE HCl 1 Tablet (of 30 mg) Oral q 6 hours, Pravastatin Sodium 1 Tablet (of 80 mg) Oral daily, Vitamin D3 1 Tablet (of 2000 Units) Capsule Oral daily Allergies: Sulfa Antibiotics Review of Systems: Review of Systems is not available for this patient. Vital Signs: Vitals are not available for this patient. Performance Status: 0 - Fully active, able to carry on all predisease activities without restrictions. (ECOG) Physical Examination: ENMT - No mouth sores, no thrush, no jaundice, no cervical lymphadenopathy, Respiratory - Lungs are clear to auscultation, Cardiovascular - Regular rate and rhythm of heart, Abdomen - Soft, bowel sounds present, obese, no tenderness, Extremities - No visible edema. Lab/Imaging: Most recent lab results are not available for this patient. Impression: Infiltrating adenocarcinoma involving the right colon status post terminal ileum and colon, right hemicolectomy done on 01/01/2018 Final pathology report showed invasion through muscularis propria into superficial serosal connective tissues T3 Tumor size 5.5 x 4.7 x 1.5 cm Positive lymphovascular space invasion 3 out of 17 lymph node positive for metastatic disease N1 stage IIIa Anemia normocytic normochromic, etiology unclear could be multifactorial including iron deficiency, considering his age underlying myelodysplasia cannot be ruled out. discussed disease status and treatment options iith Mr Floyd. As he does have stage III disease, he is a candidate for adjuvant chemotherapy with FOLFOX. Mr Floyd agreed to pursue chemotherapy. He had a left-sided venous access device placed Dr. Hernandez on 03/19/2018 and began his first cycle of FOLFOX on 03/26/2018..Completed his adjuvant chemotherapy with FOLFOX ???12 on 08/28/2018 He did have follow-up CT of the abdomen and pelvis on 05/29/2018. . The CT reported that he had numerous right renal cyst the largest measures 3.5 cm. There was no inguinal, retroperitoneal or periaortic lymphadenopathy. No hydronephrosis in either kidney. There are few prominent lymph nodes along the mesenteric root with some induration in the mesentery. He did have diverticulosis but no acute diverticulitis-no evidence of small or large bowel obstruction Plan: Discussed with patient regarding his labs white blood count 7 hemoglobin 11.9 hematocrit 36.6 which is low MCV 90.8 platelets 219,000 CMP within normal limit except glucose 365 Clinically, patient is doing well with no new signs symptoms just of recurrence of disease the only concern is mild drop in his hemoglobin although still in normal range, now 11.9 g compared to 12.5 g in November 2019 and his hematocrit is down to 36.6 from 38.7 previously and clinically it appears patient has sleep apnea based on his abdominal girth and symptoms he is describing like not getting restful sleep and feeling fatigue and sleepy all day long. At this point we will suggest primary care physician to get sleep study done and if sleep apnea is confirmed, patient may benefit from CPAP. As far as hemoglobin is concerned, with sleep apnea one would suspect polycythemia, so we will check his iron studies and B12 level if this is low, will consider supplement. And also consider follow-up CT scan of abdomen pelvis and then patient will return to clinic in 1 month with CBC and anemia work-up and CEA and CT scan of abdomen pelvis if normal, will consider Port-A-Cath removal and continue to follow him every 6 months with a physical exam and lab work Signed By: Sim Simental M.D. <<Signature on File>>
[2020-10-16 09:09] LABS: Ferritin 61 ng/mL (30-400); Iron 51 ug/dL (59-158); Percent Saturation 16.1 % (20-50); Total Iron Binding Capacity 315 mcg/dl; Unsaturated Iron Binding 264 ug/dL (112-347)
[2020-10-16 09:26] LABS: Vitamin B12 294 pg/mL (232-1245)
== END 2020-10-16 05:48 | disposition home or self-care (01) ==
LOC: ONCMED 05:51
PROVIDERS: PCP Nurse Practitioner Family; Visit Provider Internal Medicine Hematology & Oncology
DX: D64.9 Anemia, unspecified (principal); Z08 Encounter for follow-up examination after completed treatment for malignant neoplasm; Z85.038 Personal history of other malignant neoplasm of large intestine; Z90.49 Acquired absence of other specified parts of digestive tract; Z92.21 Personal history of antineoplastic chemotherapy; Z79.899 Other long term (current) drug therapy
CPT/HCPCS: 82607; 82728; 83540; 83550; 99214

== ENCOUNTER 2020-11-25 06:49 | Outpatient (CLI) | payer OTHER, SELFPAY ==
[2020-11-25 13:05] LABS: Basophils % 0.7 %; Eosinophils # 0.2 10^3/uL (0.0-0.8); Eosinophils % 3.5 %; Hemoglobin 10.6 g/dL (11.7-16.6); Lymphocytes # 1.7 10^3/uL (0.8-4.8); Lymphocytes % 29.9 %; Mean Corpuscular HGB Conc 33.1 g/dL (30.0-36.0); Mean Corpuscular Hemoglobin 29.9 pg (28.0-34.0); Mean Corpuscular Volume 90.4 fL (80-94); Mean Platelet Volume 9.6 fL (7.4-10.4); Monocytes # 0.5 10^3/uL (0.2-0.9); Monocytes % 8.8 %; Neutrophils # 3.27 10^3/uL (1.8-7.7); Neutrophils % 56.6 %; Nucleated Red Blood Cells % 0 %; Platelet Count 226 10^3/cmm (130-400); Red Blood Count 3.54 10^6/uL (4.1-5.3); Red Cell Distribution Width 13.5 % (12.1-15.1); White Blood Count 5.8 10^3/uL (4.0-10.0)
--- NOTE | 2020-11-25 13:05 | CT_ITS ---
WS: [id number] CT ABDOMEN AND PELVIS WITH CONTRAST HISTORY: COLON CANCER TECHNIQUE: Imaging performed of the abdomen and pelvis with IV contrast. Single phase imaging of the abdomen. Coronal and sagittal reformats are submitted. All CT scans at [facility] use at least one of these dose optimization techniques: automated exposure control; mA and/or kV adjustment per patient size (includes targeted exams where dose is matched to clinical indication); or iterativ e reconstruction. IV CONTRAST: Visipaque 320; 95 mL IV. Oral contrast: Yes. DLP: 940.82 mGycm COMPARISON: 06/01/2018 Lower thorax: Lung bases are clear. Heart is normal size. No hiatal hernia. Liver/biliary system: Normal size with no intrahepatic dilatation. Gallbladder: Normal. No gallstones or wall thickening. No pericholecystic fluid. Pancreas: Normal size pancreas and pancreatic duct. No adjacent inflammation. Spleen: Normal size spleen with several granulomata. Adrenal glands: Normal. Right kidney: Numerous renal cysts with the largest in the upper pole measuring 4.3 cm. This is proba jose angel 2 cysts adjacent to each other. No obstruction or hydronephrosis. Left kidney: Mild cortical thinning and atrophy. No obstruction or solid mass. Aorta: Moderate atherosclerosis with no aneurysm. Lymphadenopathy: Mild mesenteric misting and the small central mesenteric lymph nodes seen on 06/01/19 19 have nearly resolved. Decrease in amount of mesenteric misting. No new or increasing size of lymph nodes. Free fluid: None. GI tract: Diffuse constipation. Status post RIGHT hemicolectomy. Ileocolic anastomosis is clear. No r ecurrent mass or adjacent adenopathy. A few scattered sigmoid diverticula without acute inflammation. Abdominal wall: Ventral abdominal wall hernia just to the LEFT of midline containing fat only and is new since the prior study. There is an additional supraumbilical fat-containing hernia to the RIGHT o f midline. Also new since the prior study. Pelvis: No free fluid or adenopathy within the pelvis. Bones: Unremarkable. CT/CT abdomen pelvis w con* [id number] IMPRESSION: 1. Near complete resolution of the central mesenteric misting and mesenteric l ymph nodes since 06/01/2018. 2. No new lymph nodes. 3. Status post RIGHT hemicolectomy. Ileocolic anastomosis is intact with no re current mass. 4. New supraumbilical and infraumbilical fat-containing hernias.
[2020-11-25] MEDS: iohexol 300 mg/mL 50 mL Btl PO (13:06)
[2020-11-25 13:41] LABS: Carcinoembryonic Antigen 2.3 ng/mL (0.0-4.7)
[2020-11-25] MEDS: iodixanol 320 mg/mL 100mL Btl IV (14:33)
== END 2020-11-25 06:50 | disposition home or self-care (01) ==
LOC: ONCMED 06:54
PROVIDERS: Nurse Practitioner; PCP Nurse Practitioner Family; Visit Provider Internal Medicine Hematology & Oncology
DX: Z85.038 Personal history of other malignant neoplasm of large intestine (principal); K42.9 Umbilical hernia without obstruction or gangrene; Z79.899 Other long term (current) drug therapy
CPT/HCPCS: 36415; 74177; 82378; 85025; Q9967

== ENCOUNTER 2020-11-30 06:07 | Outpatient (CLI) | payer OTHER, SELFPAY ==
--- NOTE | 2020-11-30 13:06 | ONC FU_ITS ---
Dr. Simental follow up note Patient: Amadeo Floyd Unit #: [id number]: [id number] Dicatated By: Sim Simental M.D.Date of Visit:Nov 30, 2020 Onc Med Follow-up/Prog Note History of Present Illness: Mr. Floyd is a 70-year-old gentleman who underwent colonoscopy at [facility] and was found to have a polyp. He was referred to Dr. Hernandez for repeat colonoscopy for polyp removal. The repeat colonoscopy was done on 12/20/2017 and showed nonobstructive medium-size, infiltrating, malignant appearing 5 cm x 3 cm mass in distal descending colon/hepatic flexure. A biopsy was obtained which confirmed adenocarcinoma. Subsequently, Mr Floyd underwent terminal ileum and colon right hemicolectomy on 01/01/2018. The mas was 5.5 x 4.7 x 1.5 cm and was 4 cm distal to the ileocecal valve. This pathology showed infiltrating adenocarcinoma, invading through muscularis propria into superficial serosal connective tissues and positive lymphovascular space invasion; 3 out of 17 lymph nodes were positive. KRAS mutation analysis was not requested at the time of surgery. Mr Floyd tolerated surgery well but developed postoperative complication including fever and wound dehiscence. He was followed by surgery and wound has healed well. CT scan of abdomen done on 12/20/2017 showed colonic wall thickening of ascending colon near hepatic flexure and no liver mass seen. evaluated Mr Floyd and offered him treatment with FOLFOX. Mr Floyd elected to proceed with chemotherapy. He had a left subclavian venous access device placed by Dr. Hernandez on 03/19/2018. He began his first cycle of FOLFOX on 03/26/2018. and completed 12 cycles of FOLFOX on 08/28/18 He did have follow-up CT of the abdomen and pelvis on 05/29/2018. He had numerous right renal cyst the largest measures 3.5 cm. There was no inguinal, retroperitoneal or periaortic lymphadenopathy. No hydronephrosis in either kidney. There are few prominent lymph nodes along the mesenteric root with some induration in the mesentery. He did have diverticulosis but no acute diverticulitis-no evidence of small or large bowel obstruction. Follow-up CT scan of abdomen pelvis done on November 25, 2020 shows near complete resolution of central mesenteric lymph node since May 2018, no new lymph nodes status post right hemicolectomy. Ileocolic anastomosis intact with no recurrence of mass new supraumbilical and infraumbilical fat-containing hernia , Came for follow-up, denies any specific complaints, generalized weakness and fatigue otherwise no fever chills, no nausea or vomiting, no diarrhea constipation, no melena or hematochezia, no hemoptysis hematemesis, no jaundice, no abdominal pain . Medications: Amitriptyline HCl 1 Tablet (of 10 mg) Oral at bedtime, BuPROPion HCl ER (XL) 1 Tablet (of 150 mg) Tablet SR 24 HR Oral daily, ClearLax Powder Oral PRN, dilTIAZem HCl 1 Tablet (of 120 mg) Oral daily, Doxazosin Mesylate 0.5 Tablet (of 4 mg) Oral daily, Etodolac 1 Capsule (of 300 mg) Oral b.i.d., Ferrous Sulfate 1 Tablet (of 325 (65 fe) mg) Oral daily, Finasteride 1 Tablet (of 5 mg) Oral daily, Fluocinonide Cream Topical, Gabapentin 1 Capsule (of 300 mg) Oral t.i.d., HydroCHLOROthiazide 1 Tablet (of 25 mg) Oral daily, Insulin Glargine 35 Units (of 100 Units/mL) Subcutaneous daily, Loratadine 1 Tablet (of 10 mg) Oral daily, Losartan Potassium 1 Tablet (of 100 mg) Oral daily, Lyrica 1 Capsule (of 75 mg) Oral b.i.d., MetFORMIN HCl 1 Tablet (of 850 mg) Oral t.i.d., Omeprazole 1 Capsule (of 20 mg) Capsule Delayed Release Oral daily, OxyCODONE HCl 1 Tablet (of 30 mg) Oral q 6 hours, Pravastatin Sodium 1 Tablet (of 80 mg) Oral daily, Vitamin D3 1 Tablet (of 2000 Units) Capsule Oral daily Allergies: Sulfa Antibiotics Review of Systems: Review of Systems is not available for this patient. Vital Signs: Performed on Nov 30, 2020 10:51 Height - 69.00 in Weight - 222.4 lbs (LOW) BSA - 2.16 sq.m BMI - 32.84 (HIGH) Temperature - 97.4 F (LOW) Pulse - 77 /min Respiration - 18 /min BP - 156/76 mm(hg) (HIGH) Performance Status: 0 - Fully active, able to carry on all predisease activities without restrictions. (ECOG) Physical Examination: ENMT - No mouth sores no thrush, no jaundice, Respiratory - Lungs are clear to auscultation, Cardiovascular - Regular rate and rhythm of heart, Abdomen - Soft, bowel sounds present, Extremities - No visible edema. Lab/Imaging: Most recent lab results are not available for this patient. Impression: Infiltrating adenocarcinoma involving the right colon status post terminal ileum and colon, right hemicolectomy done on 01/01/2018 Final pathology report showed invasion through muscularis propria into superficial serosal connective tissues T3 Tumor size 5.5 x 4.7 x 1.5 cm Positive lymphovascular space invasion 3 out of 17 lymph node positive for metastatic disease N1 stage IIIa Anemia normocytic normochromic, etiology unclear could be multifactorial including iron deficiency, considering his age underlying myelodysplasia cannot be ruled out. discussed disease status and treatment options iith Mr Floyd. As he does have stage III disease, he is a candidate for adjuvant chemotherapy with FOLFOX. Mr Floyd agreed to pursue chemotherapy. He had a left-sided venous access device placed Dr. Hernandez on 03/19/2018 and began his first cycle of FOLFOX on 03/26/2018..Completed his adjuvant chemotherapy with FOLFOX ???12 on 08/28/2018 He did have follow-up CT of the abdomen and pelvis on 05/29/2018. . The CT reported that he had numerous right renal cyst the largest measures 3.5 cm. There was no inguinal, retroperitoneal or periaortic lymphadenopathy. No hydronephrosis in either kidney. There are few prominent lymph nodes along the mesenteric root with some induration in the mesentery. He did have diverticulosis but no acute diverticulitis-no evidence of small or large bowel obstruction Follow-up CT scan of abdomen pelvis done on November 25, 2020 shows no evidence of recurrence of disease, new supraumbilical, infraumbilical fat-containing hernias Plan: Discussed with patient regarding his labs white blood count 5.8 hemoglobin 10.6 g compared to 11.9 g previously hematocrit 32 platelets 226,000 iron studies showed iron saturation 16.1% iron 51, ferritin 61, CEA 2.3 and follow-up CT scan of abdomen pelvis shows no evidence of recurrence of disease Clinically, patient is doing well with no signs symptoms just of recurrence of disease but his follow-up labs shows progressive anemia and iron studies shows evidence of iron deficiency, etiology unclear could be chronic GI blood loss or malabsorption, at this point we will consider ferrous sulfate 325 mg 2 tablets p.o. daily and patient return to clinic in 1 month with CBC and iron studies We will also refer him to GI for EGD and colonoscopy to rule out GI source of blood loss. Signed By: Sim Simental M.D. <<Signature on File>>
== END 2020-11-30 06:08 | disposition home or self-care (01) ==
LOC: ONCMED 06:09
PROVIDERS: PCP Nurse Practitioner Family; Visit Provider Internal Medicine Hematology & Oncology
DX: Z08 Encounter for follow-up examination after completed treatment for malignant neoplasm (principal); Z85.030 Personal history of malignant carcinoid tumor of large intestine; D50.9 Iron deficiency anemia, unspecified; K57.90 Diverticulosis of intestine, part unspecified, without perforation or abscess without bleeding; Z79.899 Other long term (current) drug therapy
CPT/HCPCS: 99214

== ENCOUNTER 2021-01-04 12:45 | Outpatient (CLI) | payer OTHER, SELFPAY ==
[2021-01-04 14:08] LABS: Ferritin 84 ng/mL (30-400); Iron 71 ug/dL (59-158); Percent Saturation 23.3 % (20-50); Total Iron Binding Capacity 304 mcg/dl; Unsaturated Iron Binding 233 ug/dL (112-347)
[2021-01-04 15:01] LABS: Basophils # 0.1 10^3/uL (0.0-0.1); Basophils % 1.1 %; Eosinophils # 0.2 10^3/uL (0.0-0.8); Eosinophils % 2.6 %; Hematocrit 39.3 % (42.0-52.0); Lymphocytes # 2.1 10^3/uL (0.8-4.8); Lymphocytes % 22.5 %; Mean Corpuscular HGB Conc 33.1 g/dL (30.0-36.0); Mean Corpuscular Volume 90.8 fl (80-94); Monocytes # 0.8 10^3/uL (0.2-0.9); Monocytes % 8.1 %; Neutrophils # 6.14 10^3/uL (1.8-7.7); Neutrophils % 65.2 %; Nucleated Red Blood Cells % 0 %; Platelet Count 325 10^3/cmm (130-400); Red Blood Count 4.33 10^6/uL (4.1-5.3); Red Cell Distribution Width 13.6 % (12.1-15.1); White Blood Count 9.4 10^3/uL (4.0-10.0)
--- NOTE | 2021-01-04 15:50 | ONC FU_ITS ---
Dr. Simental follow up note Patient: Amadeo Flyod Unit #: [id number]: [id number] Dicatated By: Sim Simental M.D.Date of Visit:Jan 04, 2021 Onc Med Follow-up/Prog Note History of Present Illness: Mr. Floyd is a 70-year-old gentleman who underwent colonoscopy at [facility] and was found to have a polyp. He was referred to Dr. Hernandez for repeat colonoscopy for polyp removal. The repeat colonoscopy was done on 12/20/2017 and showed nonobstructive medium-size, infiltrating, malignant appearing 5 cm x 3 cm mass in distal descending colon/hepatic flexure. A biopsy was obtained which confirmed adenocarcinoma. Subsequently, Mr Floyd underwent terminal ileum and colon right hemicolectomy on 01/01/2018. The mas was 5.5 x 4.7 x 1.5 cm and was 4 cm distal to the ileocecal valve. This pathology showed infiltrating adenocarcinoma, invading through muscularis propria into superficial serosal connective tissues and positive lymphovascular space invasion; 3 out of 17 lymph nodes were positive. KRAS mutation analysis was not requested at the time of surgery. Mr Floyd tolerated surgery well but developed postoperative complication including fever and wound dehiscence. He was followed by surgery and wound has healed well. CT scan of abdomen done on 12/20/2017 showed colonic wall thickening of ascending colon near hepatic flexure and no liver mass seen. evaluated Mr Floyd and offered him treatment with FOLFOX. Mr Floyd elected to proceed with chemotherapy. He had a left subclavian venous access device placed by Dr. Hernandez on 03/19/2018. He began his first cycle of FOLFOX on 03/26/2018. and completed 12 cycles of FOLFOX on 08/28/18 He did have follow-up CT of the abdomen and pelvis on 05/29/2018. He had numerous right renal cyst the largest measures 3.5 cm. There was no inguinal, retroperitoneal or periaortic lymphadenopathy. No hydronephrosis in either kidney. There are few prominent lymph nodes along the mesenteric root with some induration in the mesentery. He did have diverticulosis but no acute diverticulitis-no evidence of small or large bowel obstruction. Follow-up CT scan of abdomen pelvis done on November 25, 2020 shows near complete resolution of central mesenteric lymph node since May 2018, no new lymph nodes status post right hemicolectomy. Ileocolic anastomosis intact with no recurrence of mass new supraumbilical and infraumbilical fat-containing hernia Came for follow-up, complaining of mild nausea and vomited x1 this morning no hemoptysis or hematemesis, no jaundice, no abdominal pain, no diarrhea or constipation, tolerating oral iron 2 tablets p.o. daily, reasonably well except now with progressive mild nausea/off-and-on vomiting, As per patient he is scheduled for colonoscopy/EGD on February 01, 2021 . Medications: Amitriptyline HCl 1 Tablet (of 10 mg) Oral at bedtime, BuPROPion HCl ER (XL) 1 Tablet (of 150 mg) Tablet SR 24 HR Oral daily, ClearLax Powder Oral PRN, dilTIAZem HCl 1 Tablet (of 120 mg) Oral daily, Doxazosin Mesylate 0.5 Tablet (of 4 mg) Oral daily, Etodolac 1 Capsule (of 300 mg) Oral b.i.d., Ferrous Sulfate 1 Tablet (of 325 (65 fe) mg) Oral daily, Finasteride 1 Tablet (of 5 mg) Oral daily, Fluocinonide Cream Topical, Gabapentin 1 Capsule (of 300 mg) Oral t.i.d., HydroCHLOROthiazide 1 Tablet (of 25 mg) Oral daily, Insulin Glargine 35 Units (of 100 Units/mL) Subcutaneous daily, Loratadine 1 Tablet (of 10 mg) Oral daily, Losartan Potassium 1 Tablet (of 100 mg) Oral daily, Lyrica 1 Capsule (of 75 mg) Oral b.i.d., MetFORMIN HCl 1 Tablet (of 850 mg) Oral t.i.d., Omeprazole 1 Capsule (of 20 mg) Capsule Delayed Release Oral daily, OxyCODONE HCl 1 Tablet (of 30 mg) Oral q 6 hours, Pravastatin Sodium 1 Tablet (of 80 mg) Oral daily, Vitamin D3 1 Tablet (of 2000 Units) Capsule Oral daily Allergies: Sulfa Antibiotics Review of Systems: Review of Systems is not available for this patient. Vital Signs: Performed on Jan 04, 2021 15:10 Height - 69.00 in Weight - 213.8 lbs (LOW) BSA - 2.13 sq.m BMI - 31.57 (HIGH) Temperature - 97.8 F (LOW) Pulse - 90 /min Respiration - 18 /min BP - 147/78 mm(hg) (HIGH) O2 Sat - 95 % (LOW) Pain - 0 Performance Status: 0 - Fully active, able to carry on all predisease activities without restrictions. (ECOG) Physical Examination: ENMT - No mouth sores, no thrush, no jaundice, Respiratory - Lungs are clear to auscultation, Cardiovascular - Regular rate and rhythm of heart, Abdomen - Soft, bowel sounds present, Extremities - No visible edema. Lab/Imaging: Most recent lab results are not available for this patient. Impression: Infiltrating adenocarcinoma involving the right colon status post terminal ileum and colon, right hemicolectomy done on 01/01/2018 Final pathology report showed invasion through muscularis propria into superficial serosal connective tissues T3 Tumor size 5.5 x 4.7 x 1.5 cm Positive lymphovascular space invasion 3 out of 17 lymph node positive for metastatic disease N1 stage IIIa Anemia normocytic normochromic, etiology unclear could be multifactorial including iron deficiency, considering his age underlying myelodysplasia cannot be ruled out. discussed disease status and treatment options iith Mr Floyd. As he does have stage III disease, he is a candidate for adjuvant chemotherapy with FOLFOX. Mr Floyd agreed to pursue chemotherapy. He had a left-sided venous access device placed Dr. Hernandez on 03/19/2018 and began his first cycle of FOLFOX on 03/26/2018..Completed his adjuvant chemotherapy with FOLFOX ???12 on 08/28/2018 He did have follow-up CT of the abdomen and pelvis on 05/29/2018. . The CT reported that he had numerous right renal cyst the largest measures 3.5 cm. There was no inguinal, retroperitoneal or periaortic lymphadenopathy. No hydronephrosis in either kidney. There are few prominent lymph nodes along the mesenteric root with some induration in the mesentery. He did have diverticulosis but no acute diverticulitis-no evidence of small or large bowel obstruction Follow-up CT scan of abdomen pelvis done on November 25, 2020 shows no evidence of recurrence of disease, new supraumbilical, infraumbilical fat-containing hernias Plan: Discussed patient regarding his labs white blood count 9.4 hemoglobin 13 g compared to 10.6 g on December 09, 2020, hematocrit 39.3 platelets 325,000 iron studies shows iron saturation 23.3% compared to 16.1% on October 13, 2020 ferritin 84 compared to 61 previously and iron 71 compared to 51 previously Clinically, patient doing well with no new signs symptom except persistent mild nausea with off and on vomiting since he is on oral iron, his iron deficiency anemia is resolved with increasing oral iron supplement dose, and now complaining of nausea and off-and-on vomiting so we will hold his oral iron for 1 week and if symptoms resolved, will restart him on oral 1 tablet a day, patient was reminded in case his symptoms recur then he need to discontinue oral iron and then return to clinic in 1 month with CBC and iron studies, but at that time he will have EGD and colonoscopy done for iron deficiency anemia, will review that. As for generalized weakness and fatigue is concerned probably due to underlying sleep apnea, we will suggest PMD to consider sleep study, if confirmed, he may benefit from CPAP machine. Signed By: Sim Simental M.D. <<Signature on File>>
== END 2021-01-04 12:46 | disposition home or self-care (01) ==
PROVIDERS: PCP Nurse Practitioner Family; Visit Provider Internal Medicine Hematology & Oncology
DX: C18.0 Malignant neoplasm of cecum (principal); D50.9 Iron deficiency anemia, unspecified; R53.1 Weakness; R53.83 Other fatigue; Z79.84 Long term (current) use of oral hypoglycemic drugs; Z79.899 Other long term (current) drug therapy
CPT/HCPCS: 36415; 82728; 83540; 83550; 85025; 99214

== ENCOUNTER → 2021-01-07 09:06 | Outpatient (BNVA) | payer OTHER, SELFPAY | PROVIDERS: PCP Nurse Practitioner Family; Visit Provider Surgery | DX: Z20.822 Contact with and (suspected) exposure to COVID-19 (principal); Z85.038 Personal history of other malignant neoplasm of large intestine | CPT/HCPCS: 87635 ==

== ENCOUNTER → 2021-01-27 12:34 | Outpatient (BNVA) | payer OTHER, SELFPAY | PROVIDERS: PCP Nurse Practitioner Family; Visit Provider Surgery | DX: Z20.822 Contact with and (suspected) exposure to COVID-19 (principal) | CPT/HCPCS: 87635 ==

== ENCOUNTER 2021-02-03 09:11 | Day surgery (SDC) | payer OTHER, SELFPAY ==
[2021-02-01 09:05] VITALS: BMI 32.5
[2021-02-03 10:40] VITALS: BP 200/109; PULSE 84; RESP 18; TEMP 36.4; O2SAT 98
--- NOTE | 2021-02-03 10:55 | ANES.PREANE2 ---
Pre-Anesthetic Assessment Pre-Anesthetic Assessment: Height/Weight: Height 1.75 m Weight 99.79 kg Temp Pulse Resp BP Pulse Ox 97.6 F 84 18 200/109 98 02/03/21 10:40 02/03/21 10:40 02/03/21 10:40 02/03/21 10:40 02/03/21 10:40 Preop Diagnosis: Anemia and history of colon cancer Proposed Procedure: Operation Date: 02/03/21 12:00 Proposed Procedures p EGD/colon 86202 43019 D64.9 Z86.010(Not Applicable) - Pedro Hernandez MD s Colonoscopy(Not Applicable) - Pedro Hernandez MD Was Beta Belkis taken within 24 hours: N/A Was Clonidine taken within 24 hours: N/A Last intake: Intake Last Liquid Date 02/02/21 Last Liquid Time 20:00 Last Solid Date 02/02/21 Last Solid Time 05:00 Social: Social History: No alcohol and No tobacco Exam: Pre-Anes Outpt Exam: alert, oriented x 3, clear to auscultation bilaterally and regular rate & rhythm Airway: Submandibular: WNL Cervical ROM: WNL MP: 2 Dentition: False Pulmonary: Pulmonary: COPD CV/HEM: CV/HEM: Anemia and HTN : : Chronic renal Insufficiency Metabolic: Metabolic: DM, Hyperlipidemia and Morbid obesity Musc/skel: Musc/skel: OA/DJD Neuropsych: Neuropsych: Anxiety and Neuropathy Anesthetic Plan: ASA status: 3 Anesthesia: MAC Risk of > 500 ml blood loss (7ml/kg in children): No PFSH Anesthesia PFSH: Family History Other Diabetes Stroke Denies family history of CAD (coronary artery disease) Cancer Hypertension Social History Smoking and tobacco status: never smoked Quit status (tobacco): has quit using tobacco Year quit tobacco: 1987 Alcohol intake: former History of recent travel: Yes (travels from [facility]) Data Anesthesia Cardiac Studies: No Data to Display
[2021-02-03] MEDS: sodium chloride 0.9% 1,000 ML 30 ML IV (11:08)
[2021-02-03 11:17] LABS: Glucose Point of Care 140 mg/dL (70-110)
--- NOTE | 2021-02-03 12:10 | W.PM.OPSFHP ---
Same Day Surgery H&P Indication for Procedure/HPI DATE OF PROCEDURE: February 03, 2021 CHIEF COMPLAINT/INDICATIONFOR SURGICAL PROCEDURE: History of colon cancer PREOP DIAGNOSIS: Anemia and history of colon cancer PLANNED PROCEDRUE: Operation Date: 02/03/21 12:00 Proposed Procedures p EGD/colon 27128 84293 D64.9 Z86.010(Not Applicable) - Pedro Hernandez MD s Colonoscopy(Not Applicable) - Pedro Hernandez MD This is a pleasant 70 years old gentleman well-known to me from previous clinical encounters as he did undergo a laparoscopic right hemicolectomy for colon cancer.Back in 2018 by myself. Patient received chemotherapy and recently had a CT scan of the abdomen and pelvis; CT scan of the abdomen pelvis 11/25/2020 1. Near complete resolution of the central mesenteric misting and mesenteric lymph nodes since 06/01/2018. 2. No new lymph nodes. 3. Status post RIGHT hemicolectomy. Ileocolic anastomosis is intact with no recurrent mass. 4. New supraumbilical and infraumbilical fat-containing hernias. apparently the patient undergone a surveillance colonoscopy back in [address] Livingston and that showed normal findings. Patient was noticed to have anemia and was referred to me for further investigationAnd work-up to include EGD and colonoscopy,There is no evidence of bleeding per rectum Interim history 02/03/2021 Patient comes today for surveillance colonoscopy and diagnostic EGD. ROS All systems have been reviewed negative except as per the above or per problem list Medications/Allergies* Home Medications Medication Instructions Recorded Confirmed Type etodolac 300 mg capsule 300 mg PO BID 07/31/19 02/01/21 History bupropion HCl 150 mg tablet,12 hr 300 mg PO QAM tab 11/06/19 02/01/21 History sustained-release cholecalciferol (vitamin D3) 50 50 mcg PO DAILY 11/06/19 02/01/21 History mcg (2,000 unit) capsule diltiazem HCl 120 mg 120 mg PO DAILY 11/06/19 02/01/21 History capsule,extended release 24 hr duloxetine 30 mg capsule,delayed 30 mg PO DAILY 11/06/19 02/01/21 History release ferrous sulfate 325 mg (65 mg 325 mg PO DAILY 11/06/19 02/01/21 History iron) tablet finasteride 5 mg tablet 5 mg PO DAILY 11/06/19 02/01/21 History hydrochlorothiazide 25 mg tablet 25 mg PO DAILY 11/06/19 02/01/21 History insulin glargine 100 unit/mL (3 35 unit SUBCUT DAILY ml 11/06/19 02/01/21 History mL) subcutaneous pen losartan 100 mg tablet 100 mg PO DAILY 11/06/19 02/01/21 History metformin 850 mg tablet 850 mg PO TID 11/06/19 02/01/21 History omeprazole 20 mg capsule,delayed 20 mg PO DAILY 11/06/19 02/01/21 History release pravastatin 80 mg tablet 80 mg PO DAILY 11/06/19 02/01/21 History pregabalin 75 mg capsule 75 mg PO BID 11/06/19 02/01/21 History Allergies/Adverse Reactions Allergy/AdvReac Type Severity Reaction Status Date / Time Sulfa (Sulfonamide Allergy Intermediate Swelling Verified 02/03/21 12:11 Antibiotics) Current Medications: Generic Name Dose Route Start Last Admin Trade Name Freq PRN Reason Stop Dose Admin Sodium Chloride 1,000 mls @ 30 mls/hr 02/03/21 10:45 02/03/21 11:08 Sodium Chloride 0.9% IV 02/04/21 10:44 30 mls/hr .Q24H JES Administration Pertinent History/Comorbid Conditions* Family History (Updated 07/31/19 @ 08:55 by Leana Krishnamurthy LPN) Diabetes Stroke Denies family history of CAD (coronary artery disease) Cancer Hypertension Social History Smoking and tobacco status: never smoked Quit status (tobacco): has quit using tobacco Year quit tobacco: 1987 Alcohol intake: former History of recent travel: Yes (travels from [facility]) Pertinent Exam Findings alert, oriented x 3, clear to auscultation bilaterally, regular rate & rhythm and procedure specific exam findings (Examination nontender nondistended soft, obese) Recommendations Surgery/Procedure today (EGD and colonoscopy.) Other Plans: Plan of care; After thorough history and physical examination and reviewing the chart, plan to perform a diagnostic esophagogastroduodenoscopy and diagnostic colonoscopy with possible biopsy and possible polypectomy. I discussed with the patient in detail the risks,benefits,alternatives and indications.The risk of aspiration, bleeding, soft tissue injury, perforation of the stomach/esophagus/colon and other potential concomitant complications were explained to the patient in details also the potential need for Thoracotomy and or Laproscoy/Laparotomy to repair any related complications including but not limited to colectomy and or Closotomy. The patient understood this well and did agree to proceed. 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
[2021-02-03 13:23] VITALS: BP 196/90; PULSE 65; RESP 16; TEMP 36.1; O2SAT 94
--- NOTE | 2021-02-03 13:29 | PM.PACU ---
PACU note Post-Anesthesia Exam: awake and vital signs stable Disposition: discharged
[2021-02-03 13:41] VITALS: BP 158/97; PULSE 66; RESP 17; O2SAT 95
--- NOTE | 2021-02-03 13:56 | ANE.PACU2 ---
Inpatient post-anesthesia follow up: Airway intact: Yes Vital signs: Temperature 97.0 F Pulse Rate 66 Respiratory Rate 17 Blood Pressure 158/97 Pulse Oximetry 95 Oxygen Delivery Me thod Room Air Oxygen Flow Rate Fraction of Inspir ed Oxygen Hydration adequate: Yes Nausea and vomiting: No Pain level: 1 Mental status: Baseline
[2021-02-04 10:44] LABS: H. Pylori / CLO Test Negative
== END 2021-02-03 13:53 | disposition home or self-care (01) ==
PROVIDERS: PCP Nurse Practitioner Family; Visit Provider Surgery
PROC: 0DJ08ZZ Inspection of Upper Intestinal Tract, Via Natural or Artificial Opening Endoscopic (ICD-10-PCS; CPT 43235; principal; 2021-02-03 12:00)
PROC: 0DJD8ZZ Inspection of Lower Intestinal Tract, Via Natural or Artificial Opening Endoscopic (ICD-10-PCS; CPT 45378; 2021-02-03 12:00)
DX: D64.9 Anemia, unspecified (principal); Z86.010 Personal history of colon polyps; K57.30 Diverticulosis of large intestine without perforation or abscess without bleeding; K29.70 Gastritis, unspecified, without bleeding; J44.9 Chronic obstructive pulmonary disease, unspecified; I10 Essential (primary) hypertension; E78.5 Hyperlipidemia, unspecified; E66.01 Morbid (severe) obesity due to excess calories; Z68.32 Body mass index [BMI] 32.0-32.9, adult; E11.40 Type 2 diabetes mellitus with diabetic neuropathy, unspecified; F41.9 Anxiety disorder, unspecified; Z83.3 Family history of diabetes mellitus; Z82.3 Family history of stroke
CPT/HCPCS: 36416; 43239; 45378; 45386; 82962; 87077; 96360; 96361; J2704; J7030

== ENCOUNTER 2021-02-08 11:58 | Outpatient (CLI) | payer OTHER, SELFPAY ==
[2021-02-08 13:24] LABS: Basophils # 0.1 10^3/uL (0.0-0.1); Basophils % 0.8 %; Eosinophils # 0.2 10^3/uL (0.0-0.8); Eosinophils % 2.4 %; Hematocrit 38.7 % (42.0-52.0); Hemoglobin 11.7 g/dL (11.7-16.6); Lymphocytes # 1.7 10^3/uL (0.8-4.8); Mean Corpuscular HGB Conc 30.2 g/dL (30.0-36.0); Mean Corpuscular Hemoglobin 30.7 pg (28.0-34.0); Mean Corpuscular Volume 101.6 fl (80-94); Mean Platelet Volume 10.1 fL (7.4-10.4); Monocytes # 0.4 10^3/uL (0.2-0.9); Neutrophils # 4.77 10^3/uL (1.8-7.7); Neutrophils % 66.2 %; Nucleated Red Blood Cells % 0 %; Platelet Count 215 10^3/cmm (130-400); Red Blood Count 3.81 10^6/uL (4.1-5.3); Red Cell Distribution Width 13.9 % (12.1-15.1); White Blood Count 7.2 10^3/uL (4.0-10.0)
[2021-02-08 14:02] LABS: Ferritin 68 ng/mL (30-400); Iron 68 ug/dL (59-158); Total Iron Binding Capacity 340 mcg/dl; Unsaturated Iron Binding 272 ug/dL (112-347)
== END 2021-02-08 11:59 | disposition home or self-care (01) ==
LOC: ONCMED 12:01
PROVIDERS: PCP Nurse Practitioner Family; Visit Provider Internal Medicine Hematology & Oncology
DX: C18.2 Malignant neoplasm of ascending colon (principal); K52.1 Toxic gastroenteritis and colitis
CPT/HCPCS: 36415; 82728; 83540; 83550; 85025; 96523

== ENCOUNTER 2021-02-10 06:43 | Outpatient (CLI) | payer OTHER, SELFPAY ==
[2021-02-10] MEDS: cyanocobalamin 1,000 mcg/mL SDV 1000 MCG SUBCUT (15:20)
--- NOTE | 2021-02-10 17:10 | ONC FU_ITS ---
Dr. Simental follow up note Patient: Amadeo Floyd Unit #: [id number]: [id number] Dicatated By: Sim Simental M.D.Date of Visit:Feb 10, 2021 Onc Med Follow-up/Prog Note History of Present Illness: Mr. Floyd is a 70-year-old gentleman who underwent colonoscopy at [facility] and was found to have a polyp. He was referred to Dr. Hernandez for repeat colonoscopy for polyp removal. The repeat colonoscopy was done on 12/20/2017 and showed nonobstructive medium-size, infiltrating, malignant appearing 5 cm x 3 cm mass in distal descending colon/hepatic flexure. A biopsy was obtained which confirmed adenocarcinoma. Subsequently, Mr Floyd underwent terminal ileum and colon right hemicolectomy on 01/01/2018. The mas was 5.5 x 4.7 x 1.5 cm and was 4 cm distal to the ileocecal valve. This pathology showed infiltrating adenocarcinoma, invading through muscularis propria into superficial serosal connective tissues and positive lymphovascular space invasion; 3 out of 17 lymph nodes were positive. KRAS mutation analysis was not requested at the time of surgery. Mr Floyd tolerated surgery well but developed postoperative complication including fever and wound dehiscence. He was followed by surgery and wound has healed well. CT scan of abdomen done on 12/20/2017 showed colonic wall thickening of ascending colon near hepatic flexure and no liver mass seen. evaluated Mr Floyd and offered him treatment with FOLFOX. Mr Floyd elected to proceed with chemotherapy. He had a left subclavian venous access device placed by Dr. Hernandez on 03/19/2018. He began his first cycle of FOLFOX on 03/26/2018. and completed 12 cycles of FOLFOX on 08/28/18 He did have follow-up CT of the abdomen and pelvis on 05/29/2018. He had numerous right renal cyst the largest measures 3.5 cm. There was no inguinal, retroperitoneal or periaortic lymphadenopathy. No hydronephrosis in either kidney. There are few prominent lymph nodes along the mesenteric root with some induration in the mesentery. He did have diverticulosis but no acute diverticulitis-no evidence of small or large bowel obstruction. Follow-up CT scan of abdomen pelvis done on November 25, 2020 shows near complete resolution of central mesenteric lymph node since May 2018, no new lymph nodes status post right hemicolectomy. Ileocolic anastomosis intact with no recurrence of mass new supraumbilical and infraumbilical fat-containing hernia Underwent EGD/colonoscopy on February 03, 2021 which shows stricture at ileocolic junction, too narrow to pass colonoscopy through it, as per discussion with Dr. Hernandez barium enema is under consideration rest of the exam was unremarkable EGD done on same day shows mild gastritis otherwise unremarkable Came for follow-up, denies any specific complaints, recently underwent EGD and colonoscopy, as per patient barium enema is under consideration otherwise no fever chills, no nausea or vomiting, no diarrhea constipation, no nausea or vomiting, occasional abdominal pain. And generalized weakness and fatigue . Medications: Amitriptyline HCl 1 Tablet (of 10 mg) Oral at bedtime, BuPROPion HCl ER (XL) 1 Tablet (of 150 mg) Tablet SR 24 HR Oral daily, ClearLax Powder Oral PRN, dilTIAZem HCl 1 Tablet (of 120 mg) Oral daily, Doxazosin Mesylate 0.5 Tablet (of 4 mg) Oral daily, Etodolac 1 Capsule (of 300 mg) Oral b.i.d., Ferrous Sulfate 1 Tablet (of 325 (65 fe) mg) Oral daily, Finasteride 1 Tablet (of 5 mg) Oral daily, Fluocinonide Cream Topical, Gabapentin 1 Capsule (of 300 mg) Oral t.i.d., HydroCHLOROthiazide 1 Tablet (of 25 mg) Oral daily, Insulin Glargine 35 Units (of 100 Units/mL) Subcutaneous daily, Loratadine 1 Tablet (of 10 mg) Oral daily, Losartan Potassium 1 Tablet (of 100 mg) Oral daily, Lyrica 1 Capsule (of 75 mg) Oral b.i.d., MetFORMIN HCl 1 Tablet (of 850 mg) Oral t.i.d., Omeprazole 1 Capsule (of 20 mg) Capsule Delayed Release Oral daily, OxyCODONE HCl 1 Tablet (of 30 mg) Oral q 6 hours, Pravastatin Sodium 1 Tablet (of 80 mg) Oral daily, Vitamin D3 1 Tablet (of 2000 Units) Capsule Oral daily Allergies: Sulfa Antibiotics Review of Systems: Review of Systems is not available for this patient. Vital Signs: Performed on Feb 10, 2021 15:49 Height - 69.00 in Weight - 220.8 lbs (HIGH) BSA - 2.15 sq.m BMI - 32.61 (HIGH) Temperature - 98.2 F (LOW) Pulse - 73 /min Respiration - 18 /min BP - 143/75 mm(hg) (HIGH) O2 Sat - 95 % (LOW) Pain - 0 Fatigue - 2 Performance Status: 0 - Fully active, able to carry on all predisease activities without restrictions. (ECOG) Physical Examination: ENMT - No mouth sores, no thrush, no jaundice, Respiratory - Lungs are clear to auscultation, Cardiovascular - Regular rate and rhythm of heart, Abdomen - Soft, bowel sounds present, Extremities - No visible edema. Lab/Imaging: Most recent lab results are not available for this patient. Impression: Infiltrating adenocarcinoma involving the right colon status post terminal ileum and colon, right hemicolectomy done on 01/01/2018 Final pathology report showed invasion through muscularis propria into superficial serosal connective tissues T3 Tumor size 5.5 x 4.7 x 1.5 cm Positive lymphovascular space invasion 3 out of 17 lymph node positive for metastatic disease N1 stage IIIa Anemia normocytic normochromic, etiology unclear could be multifactorial including iron deficiency, considering his age underlying myelodysplasia cannot be ruled out. discussed disease status and treatment options iith Mr Floyd. As he does have stage III disease, he is a candidate for adjuvant chemotherapy with FOLFOX. Mr Floyd agreed to pursue chemotherapy. He had a left-sided venous access device placed Dr. Hernandez on 03/19/2018 and began his first cycle of FOLFOX on 03/26/2018..Completed his adjuvant chemotherapy with FOLFOX ???12 on 08/28/2018 He did have follow-up CT of the abdomen and pelvis on 05/29/2018. . The CT reported that he had numerous right renal cyst the largest measures 3.5 cm. There was no inguinal, retroperitoneal or periaortic lymphadenopathy. No hydronephrosis in either kidney. There are few prominent lymph nodes along the mesenteric root with some induration in the mesentery. He did have diverticulosis but no acute diverticulitis-no evidence of small or large bowel obstruction Follow-up CT scan of abdomen pelvis done on November 25, 2020 shows no evidence of recurrence of disease, new supraumbilical, infraumbilical fat-containing hernias Plan: Discussed with patient regarding his labs white blood count 7.2 hemoglobin 11.7 g, hematocrit 38.7 platelets 215,000 iron saturation 20 ferritin 68 iron 68 TIBC 340 Clinically, patient is doing well with no new signs symptom suggestive of recurrence of disease, recently underwent EGD/colonoscopy for iron deficiency anemia which showed severe ileocolic anastomotic stricture, barium enema is under consideration for further evaluation. As per discussion with Dr. Hernandez, he will follow patient with barium enema and for further recommendations. As far as anemia is concerned probably multifactorial his B12 is in the low side of normal, will consider B12 supplement 1000 mcg IM monthly and also patient was advised to continue oral iron 1 pill a day and return to clinic in 2 months with CBC and iron studies in the meantime continue monthly port maintenance Signed By: Sim Simental M.D. <<Signature on File>>
== END 2021-02-10 06:44 | disposition home or self-care (01) ==
LOC: ONCMED 06:44
PROVIDERS: PCP Nurse Practitioner Family; Visit Provider Internal Medicine Hematology & Oncology
DX: C18.2 Malignant neoplasm of ascending colon (principal); D50.9 Iron deficiency anemia, unspecified; Z79.899 Other long term (current) drug therapy; Z79.84 Long term (current) use of oral hypoglycemic drugs
CPT/HCPCS: 96372; 99215; J3420

== ENCOUNTER 2021-02-26 09:46 | Outpatient (CLI) | payer OTHER, SELFPAY ==
--- NOTE | 2021-02-26 09:52 | FL_ITS ---
WS: [id number] FL barium enema [id number] REASON FOR EXAM: K56.699 - Other intestinal obstruction unspecified as to ... FLUOROSCOPY TIME: 2.5 minutes FINDINGS: Diverticuli in the sigmoid colon. No intrinsic or extrinsic narrowing of the colon. No intraluminal mass or mucosal abnormality. Ileocolic anastomosis is normal. The refluxed terminal ileum is normal. FL/FL barium enema [id number] IMPRESSION: Status post right hemicolectomy. No abnormality in the remaining colon identifi ed.
== END 2021-02-26 09:47 | disposition home or self-care (01) ==
LOC: RAD 09:49
PROVIDERS: PCP Nurse Practitioner Family; Visit Provider Surgery
DX: K56.699 Other intestinal obstruction unspecified as to partial versus complete obstruction (principal); Z90.49 Acquired absence of other specified parts of digestive tract
CPT/HCPCS: 74270

== ENCOUNTER 2021-03-12 08:08 | Outpatient (CLI) | payer OTHER, SELFPAY ==
[2021-03-12] MEDS: cyanocobalamin 1,000 mcg/mL SDV 1000 MCG SUBCUT (09:05)
== END 2021-03-12 08:09 | disposition home or self-care (01) ==
LOC: ONCMED 08:09
PROVIDERS: PCP Nurse Practitioner Family; Visit Provider Internal Medicine Hematology & Oncology
DX: D51.9 Vitamin B12 deficiency anemia, unspecified (principal)
CPT/HCPCS: 96372; 96523; J3420

== ENCOUNTER 2021-04-14 12:15 | Outpatient (CLI) | payer OTHER, SELFPAY ==
[2021-04-14] MEDS: cyanocobalamin 1,000 mcg/mL SDV 1000 MCG IM (13:33)
[2021-04-14 14:56] LABS: Ferritin 89 ng/mL (30-400); Iron 61 ug/dL (59-158); Total Iron Binding Capacity 321 mcg/dl; Unsaturated Iron Binding 260 ug/dL (112-347)
[2021-04-14 15:01] LABS: Basophils # 0.1 10^3/uL (0.0-0.1); Basophils % 0.7 %; Eosinophils # 0.3 10^3/uL (0.0-0.8); Eosinophils % 3.5 %; Hematocrit 36.5 % (42.0-52.0); Hemoglobin 12.6 g/dL (11.7-16.6); Lymphocytes # 2.1 10^3/uL (0.8-4.8); Lymphocytes % 23.5 %; Mean Corpuscular HGB Conc 34.5 g/dL (30.0-36.0); Mean Corpuscular Hemoglobin 31.1 pg (28.0-34.0); Mean Corpuscular Volume 90.1 fl (80-94); Mean Platelet Volume 10.3 fL (7.4-10.4); Monocytes # 0.7 10^3/uL (0.2-0.9); Monocytes % 7.6 %; Neutrophils # 5.63 10^3/uL (1.8-7.7); Neutrophils % 64.1 %; Nucleated Red Blood Cells % 0 %; Platelet Count 244 10^3/cmm (130-400); Red Blood Count 4.05 10^6/uL (4.1-5.3); Red Cell Distribution Width 13.2 % (12.1-15.1); White Blood Count 8.8 10^3/uL (4.0-10.0)
== END 2021-04-14 12:16 | disposition home or self-care (01) ==
LOC: ONCMED 12:17
PROVIDERS: PCP Nurse Practitioner Family; Visit Provider Internal Medicine Hematology & Oncology
DX: Z85.038 Personal history of other malignant neoplasm of large intestine (principal); D50.9 Iron deficiency anemia, unspecified; D51.9 Vitamin B12 deficiency anemia, unspecified; Z45.2 Encounter for adjustment and management of vascular access device
CPT/HCPCS: 36415; 82728; 83540; 83550; 85025; 96372; 96523; J3420

== ENCOUNTER 2021-04-16 06:47 | Outpatient (CLI) | payer OTHER, SELFPAY ==
--- NOTE | 2021-04-16 10:24 | ONC FU_ITS ---
Dr. Simental follow up note Patient: Amadeo Floyd Unit #: [id number]: [id number] Dicatated By: Sim Simental M.D.Date of Visit:Apr 16, 2021 Onc Med Follow-up/Prog Note History of Present Illness: Mr. Floyd is a 71-year-old gentleman who underwent colonoscopy at [facility] and was found to have a polyp. He was referred to Dr. Hernandez for repeat colonoscopy for polyp removal. The repeat colonoscopy was done on 12/20/2017 and showed nonobstructive medium-size, infiltrating, malignant appearing 5 cm x 3 cm mass in distal descending colon/hepatic flexure. A biopsy was obtained which confirmed adenocarcinoma. Subsequently, Mr Floyd underwent terminal ileum and colon right hemicolectomy on 01/01/2018. The mas was 5.5 x 4.7 x 1.5 cm and was 4 cm distal to the ileocecal valve. This pathology showed infiltrating adenocarcinoma, invading through muscularis propria into superficial serosal connective tissues and positive lymphovascular space invasion; 3 out of 17 lymph nodes were positive. KRAS mutation analysis was not requested at the time of surgery. Mr Floyd tolerated surgery well but developed postoperative complication including fever and wound dehiscence. He was followed by surgery and wound has healed well. CT scan of abdomen done on 12/20/2017 showed colonic wall thickening of ascending colon near hepatic flexure and no liver mass seen. evaluated Mr Floyd and offered him treatment with FOLFOX. Mr Floyd elected to proceed with chemotherapy. He had a left subclavian venous access device placed by Dr. Hernandez on 03/19/2018. He began his first cycle of FOLFOX on 03/26/2018. and completed 12 cycles of FOLFOX on 08/28/18 He did have follow-up CT of the abdomen and pelvis on 05/29/2018. He had numerous right renal cyst the largest measures 3.5 cm. There was no inguinal, retroperitoneal or periaortic lymphadenopathy. No hydronephrosis in either kidney. There are few prominent lymph nodes along the mesenteric root with some induration in the mesentery. He did have diverticulosis but no acute diverticulitis-no evidence of small or large bowel obstruction. Follow-up CT scan of abdomen pelvis done on November 25, 2020 shows near complete resolution of central mesenteric lymph node since May 2018, no new lymph nodes status post right hemicolectomy. Ileocolic anastomosis intact with no recurrence of mass new supraumbilical and infraumbilical fat-containing hernia Underwent EGD/colonoscopy on February 03, 2021 which shows stricture at ileocolic junction, too narrow to pass colonoscopy through it, as per discussion with Dr. Hernandez barium enema is under consideration rest of the exam was unremarkable EGD done on same day shows mild gastritis otherwise unremarkable Came for follow-up, denies any specific complaints, no fever chills, no nausea or vomiting, no diarrhea constipation, no melena hematochezia, no hemoptysis or hematemesis, no jaundice, no abdominal pain, appetite is good, tolerating monthly B12 supplement well along with oral iron. . Medications: Amitriptyline HCl 1 Tablet (of 10 mg) Oral at bedtime, BuPROPion HCl ER (XL) 1 Tablet (of 150 mg) Tablet SR 24 HR Oral daily, ClearLax Powder Oral PRN, dilTIAZem HCl 1 Tablet (of 120 mg) Oral daily, Doxazosin Mesylate 0.5 Tablet (of 4 mg) Oral daily, Etodolac 1 Capsule (of 300 mg) Oral b.i.d., Ferrous Sulfate 1 Tablet (of 325 (65 fe) mg) Oral daily, Finasteride 1 Tablet (of 5 mg) Oral daily, Fluocinonide Cream Topical, Gabapentin 1 Capsule (of 300 mg) Oral t.i.d., HydroCHLOROthiazide 1 Tablet (of 25 mg) Oral daily, Insulin Glargine 35 Units (of 100 Units/mL) Subcutaneous daily, Loratadine 1 Tablet (of 10 mg) Oral daily, Losartan Potassium 1 Tablet (of 100 mg) Oral daily, Lyrica 1 Capsule (of 75 mg) Oral b.i.d., MetFORMIN HCl 1 Tablet (of 850 mg) Oral t.i.d., Omeprazole 1 Capsule (of 20 mg) Capsule Delayed Release Oral daily, OxyCODONE HCl 1 Tablet (of 30 mg) Oral q 6 hours, Pravastatin Sodium 1 Tablet (of 80 mg) Oral daily, Vitamin D3 1 Tablet (of 2000 Units) Capsule Oral daily Allergies: Sulfa Antibiotics Review of Systems: Review of Systems is not available for this patient. Vital Signs: Performed on Apr 16, 2021 10:16 Height - 69.00 in Weight - 224.0 lbs (HIGH) BSA - 2.17 sq.m BMI - 33.08 (HIGH) Temperature - 97.4 F (LOW) Pulse - 76 /min Respiration - 18 /min BP - 135/70 mm(hg) O2 Sat - 98 % Pain - 0 Fatigue - 5 Performance Status: 0 - Fully active, able to carry on all predisease activities without restrictions. (ECOG) Physical Examination: ENMT - No mouth sores, no thrush, no jaundice, no cervical lymphadenopathy, Respiratory - Lungs are clear to auscultation, Cardiovascular - Regular rate and rhythm of heart, Abdomen - Soft, bowel sounds present, Extremities - No visible edema. Lab/Imaging: Most recent lab results are not available for this patient. Impression: Infiltrating adenocarcinoma involving the right colon status post terminal ileum and colon, right hemicolectomy done on 01/01/2018 Final pathology report showed invasion through muscularis propria into superficial serosal connective tissues T3 Tumor size 5.5 x 4.7 x 1.5 cm Positive lymphovascular space invasion 3 out of 17 lymph node positive for metastatic disease N1 stage IIIa Anemia normocytic normochromic, etiology unclear could be multifactorial including iron deficiency, considering his age underlying myelodysplasia cannot be ruled out. discussed disease status and treatment options iith Mr Floyd. As he does have stage III disease, he is a candidate for adjuvant chemotherapy with FOLFOX. Mr Floyd agreed to pursue chemotherapy. He had a left-sided venous access device placed Dr. Hernandez on 03/19/2018 and began his first cycle of FOLFOX on 03/26/2018..Completed his adjuvant chemotherapy with FOLFOX ???12 on 08/28/2018 He did have follow-up CT of the abdomen and pelvis on 05/29/2018. . The CT reported that he had numerous right renal cyst the largest measures 3.5 cm. There was no inguinal, retroperitoneal or periaortic lymphadenopathy. No hydronephrosis in either kidney. There are few prominent lymph nodes along the mesenteric root with some induration in the mesentery. He did have diverticulosis but no acute diverticulitis-no evidence of small or large bowel obstruction Follow-up CT scan of abdomen pelvis done on November 25, 2020 shows no evidence of recurrence of disease, new supraumbilical, infraumbilical fat-containing hernias Anemia, combined B12/iron deficiency, on supplement Plan: Discussed with patient regarding his labs white blood count 8.8 hemoglobin 12.6 g compared to 11.7 previously hematocrit 36.5 platelets 244,000 iron studies shows iron saturation 19%, ferritin 89 compared to 68 previously iron 61 TIBC 321 Clinically, patient doing well with no new signs symptoms suggestive of recurrence of disease. As far as anemia is concerned, his follow-up labs shows resolution of combined B12/iron deficiency anemia, patient is on supplements. We will continue with same and he will return to clinic in 3 months with CBC CMP, CEA, iron studies and B12 level in the meantime he will continue with oral iron and monthly B12 supplement and monthly port maintenance. Signed By: Sim Simental M.D. <<Signature on File>>
== END 2021-04-16 06:48 | disposition home or self-care (01) ==
LOC: ONCMED 06:48
PROVIDERS: PCP Nurse Practitioner Family; Visit Provider Internal Medicine Hematology & Oncology
DX: Z85.038 Personal history of other malignant neoplasm of large intestine (principal)
CPT/HCPCS: 99214

== ENCOUNTER 2021-06-21 09:49 | Outpatient (CLI) | payer OTHER, SELFPAY ==
[2021-06-21] MEDS: cyanocobalamin 1,000 mcg/mL SDV 1000 MCG SUBCUT (10:20)
== END 2021-06-21 09:50 | disposition home or self-care (01) ==
LOC: ONCMED 09:52
PROVIDERS: PCP Nurse Practitioner Family; Visit Provider Internal Medicine Hematology & Oncology
DX: E53.8 Deficiency of other specified B group vitamins (principal)
CPT/HCPCS: 96372; 96523; J3420

== ENCOUNTER 2021-07-21 08:35 | Outpatient (CLI) | payer OTHER, SELFPAY ==
[2021-07-21 09:05] LABS: Basophils # 0.1 10^3/uL (0.0-0.1); Eosinophils # 0.3 10^3/uL (0.0-0.8); Eosinophils % 3.1 %; Hematocrit 36.9 % (42.0-52.0); Hemoglobin 12.3 g/dL (11.7-16.6); Lymphocytes # 2.4 10^3/uL (0.8-4.8); Lymphocytes % 28.3 %; Mean Corpuscular HGB Conc 33.3 g/dL (30.0-36.0); Mean Corpuscular Hemoglobin 30.4 pg (28.0-34.0); Mean Corpuscular Volume 91.1 fl (80-94); Mean Platelet Volume 9.5 fL (7.4-10.4); Monocytes # 0.6 10^3/uL (0.2-0.9); Monocytes % 7.1 %; Neutrophils # 4.98 10^3/uL (1.8-7.7); Nucleated Red Blood Cells % 0 %; Platelet Count 202 10^3/cmm (130-400); Red Blood Count 4.05 10^6/uL (4.1-5.3); Red Cell Distribution Width 13.1 % (12.1-15.1); White Blood Count 8.3 10^3/uL (4.0-10.0)
[2021-07-21] MEDS: cyanocobalamin 1,000 mcg/mL SDV 1000 MCG SUBCUT (09:05)
[2021-07-21 09:24] LABS: Alanine Aminotransferase 19 U/L (0-41); Albumin Level 4.6 g/dL (3.5-5.2); Alkaline Phosphatase 71 IU/L (40-130); Anion Gap 18.4 (5-19); Aspartate Amino Transferase 18 U/L (0-40); Blood Urea Nitrogen 22 mg/dL (8-23); Calcium 9.8 mg/dL (8.5-10.5); Carbon Dioxide 24 mmol/L (22-29); Chloride 92 mmol/L (98-107); Ferritin 74 ng/mL (30-400); Globulin 2.9 g/dL (1.3-4.6); Glucose 137 mg/dL (65-115); Iron 73 ug/dL (59-158); Osmolality Calculated 275 mOsm/kg (285-295); Percent Saturation 23.9 % (20-50); Potassium 4.4 mmol/L (3.5-5.1); Sodium 130 mmol/L (136-145); Total Bilirubin 0.3 mg/dL (0.15-1.2); Total Iron Binding Capacity 305 mcg/dl; Total Protein 7.5 g/dL (6.6-8.7); Unsaturated Iron Binding 232 ug/dL (112-347)
[2021-07-21 09:40] LABS: Vitamin B12 455 pg/mL (232-1245)
[2021-07-21 10:34] LABS: Carcinoembryonic Antigen 2.5 ng/mL (0.0-4.7)
--- NOTE | 2021-07-21 16:27 | ONC FU_ITS ---
Rebecca Solo Progress Note Patient: Amadeo Floyd Unit #: [id number]: 1950 Dicatated By: Rebecca Solo N.P.Date of Visit:Jul 21, 2021 Onc MED Follow-up/Prog Note Chief Complaint: Colon cancer and anemia History of Present Illness: Mr. Floyd is a 71-year-old gentleman who underwent colonoscopy at [facility] and was found to have a polyp. He was referred to Dr. Hernandez for repeat colonoscopy for polyp removal. The repeat colonoscopy was done on 12/20/2017 and showed nonobstructive medium-size, infiltrating, malignant appearing 5 cm x 3 cm mass in distal descending colon/hepatic flexure. A biopsy was obtained which confirmed adenocarcinoma. Subsequently, Mr Floyd underwent terminal ileum and colon right hemicolectomy on 01/01/2018. The mas was 5.5 x 4.7 x 1.5 cm and was 4 cm distal to the ileocecal valve. This pathology showed infiltrating adenocarcinoma, invading through muscularis propria into superficial serosal connective tissues and positive lymphovascular space invasion; 3 out of 17 lymph nodes were positive. KRAS mutation analysis was not requested at the time of surgery. Mr Floyd tolerated surgery well but developed postoperative complication including fever and wound dehiscence. He was followed by surgery and wound has healed well. CT scan of abdomen done on 12/20/2017 showed colonic wall thickening of ascending colon near hepatic flexure and no liver mass seen. evaluated Mr Floyd and offered him treatment with FOLFOX. Mr Floyd elected to proceed with chemotherapy. He had a left subclavian venous access device placed by Dr. Hernandez on 03/19/2018. He began his first cycle of FOLFOX on 03/26/2018. and completed 12 cycles of FOLFOX on 08/28/18 He did have follow-up CT of the abdomen and pelvis on 05/29/2018. He had numerous right renal cyst the largest measures 3.5 cm. There was no inguinal, retroperitoneal or periaortic lymphadenopathy. No hydronephrosis in either kidney. There are few prominent lymph nodes along the mesenteric root with some induration in the mesentery. He did have diverticulosis but no acute diverticulitis-no evidence of small or large bowel obstruction. Follow-up CT scan of abdomen pelvis done on November 25, 2020 shows near complete resolution of central mesenteric lymph node since May 2018, no new lymph nodes status post right hemicolectomy. Ileocolic anastomosis intact with no recurrence of mass new supraumbilical and infraumbilical fat-containing hernia Underwent EGD/colonoscopy on February 03, 2021 which shows stricture at ileocolic junction, too narrow to pass colonoscopy through it, as per discussion with Dr. Hernandez barium enema is under consideration rest of the exam was unremarkable EGD done on same day shows mild gastritis otherwise unremarkable Patient presents today for follow-up. He states he is doing fairly well. His appetite is good. No fever, chills, or night sweats. No sore throat or mouth sores. He denies shortness of breath, cough, chest pain. No nausea or vomiting. No diarrhea is to patient. He has abdominal pain in the left lower quadrant that comes and goes and feels like a sharp pain. He states he was told he had a stricture after his colonoscopy in January 2021 but a follow-up with a barium enema indicated normal anastomosis. Review Of Symptoms: See above. Past Medical History: Anxiety Depression Hyperlipidemia Hypertension Irritable bowel syndrome Psoriasis Type II diabetes Past Surgical History: Covid vaccine #2 in 2020 Covid vaccine #1 in 2020 Port-a-cath placement in 2018 - performed by Dr. Hernandez Right hemicolectomy in 2018 COVID VACCINE #1 07/2020, VACCINE #2 08/2020 MODERNA Allergies: Sulfa Antibiotics Medications: Amitriptyline HCl 1 Tablet (of 10 mg) Oral at bedtime BuPROPion HCl ER (XL) 1 Tablet (of 150 mg) Tablet SR 24 HR Oral daily ClearLax Powder Oral PRN dilTIAZem HCl 1 Tablet (of 120 mg) Oral daily Doxazosin Mesylate 0.5 Tablet (of 4 mg) Oral daily Etodolac 1 Capsule (of 300 mg) Oral b.i.d. Ferrous Sulfate 1 Tablet (of 325 (65 fe) mg) Oral daily Finasteride 1 Tablet (of 5 mg) Oral daily Fluocinonide Cream Topical Gabapentin 1 Capsule (of 300 mg) Oral t.i.d. HydroCHLOROthiazide 1 Tablet (of 25 mg) Oral daily Insulin Glargine 35 Units (of 100 Units/mL) Subcutaneous daily Loratadine 1 Tablet (of 10 mg) Oral daily Losartan Potassium 1 Tablet (of 100 mg) Oral daily Lyrica 1 Capsule (of 75 mg) Oral b.i.d. MetFORMIN HCl 1 Tablet (of 850 mg) Oral t.i.d. Omeprazole 1 Capsule (of 20 mg) Capsule Delayed Release Oral daily OxyCODONE HCl 1 Tablet (of 30 mg) Oral q 6 hours Pravastatin Sodium 1 Tablet (of 80 mg) Oral daily Vitamin D3 1 Tablet (of 2000 Units) Capsule Oral daily Family History: Mr. Floyd's mother at age 70: alzheimers. Mr. Floyd's father at age 89: renal cancer. Social History: Mr. Floyd is single and he is retired. Mr. Floyd quit smoking 37 years ago but had smoked 1.0 pack/day for 22 years. He is a former drinker. Physical Examination: Performed on Jul 21, 2021 11:46: Height - 69.00 in, Weight - 226.2 lbs (HIGH), BSA - 2.18 sq.m, BMI - 33.40 (HIGH), Temperature - 97.6 F (LOW), Pulse - 85 /min, Respiration - 16 /min, BP - 147/78 mm(hg) (HIGH), O2 Sat - 97 %, Pain - 7, and Fatigue - 4. Performance Status: 1 - No physically strenuous activity, but ambulatory and able to carry out light or sedentary work (e.g. office work, light house work). (ECOG) Constitutional Alert, cooperative, oriented. Mood and affect appropriate. Appears close to chronological age. Well nourished. Well developed. Head Normocephalic; no scars. Respiratory Lungs are clear to auscultation without rhonchi or wheezing. Cardiovascular Regular rate and rhythm of heart without murmurs, gallops or rubs. Abdomen Bowel sounds positive all 4 quadrants. Left lower quadrant tenderness on palpation. Extremities No visible deformities, no cyanosis, clubbing or edema. Pulses 3+ and equal bilaterally. Musculoskeletal No tenderness or swelling, normal range of motion without obvious weakness. Psychiatric Alert and oriented times three. Coherent speech. Verbalizes understanding of our discussions today. Laboratory: Test performed on Jul 21, 2021 08:53 Ferritin 74 ng/mL Iron 73 mcg/dL Sodium 130 mmol/L Vitamin B12 455 pg/mL Iron Binding Capacity (TIBC) 305 mcg/dl Potassium 4.4 mmol/L % Iron Saturation 23.9 % Chloride 92 mmol/L CO2 24 mmol/L UIBC 232 mcg/dL Anion Gap 18.4 BUN 22 mg/dL Creatinine 1.1 mg/dL Cr Clearance (Est) 83.5800 mL/min Glucose 137 mg/dL Osmolality - Calculated 275 mOsm/kg Calcium 9.8 mg/dL Protein, Total 7.5 g/dL Albumin 4.6 g/dL Globulin 2.9 g/dL Bilirubin, Total 0.3 mg/dL ALT (SGPT) 19 U/L AST (SGOT) 18 U/L Alkaline Phosphatase 71 IU/L WBC 8.3 10 3/uL RBC 4.05 10 6/uL HGB 12.3 g/dL HCT 36.9 % MCV 91.1 fl MCH 30.4 pg MCHC 33.3 g/dL RDW 13.1 % Platelet Count 202 10 3/cmm MPV 9.5 fL Neutrophils 4.98 10 3/uL Lymphocytes 2.4 10 3/uL Monocytes 0.6 10 3/uL Eosinophils 0.3 10 3/uL Basophils 0.1 10 3/uL Neutrophil % 60.0 % Lymphocyte % 28.3 % Monocyte % 7.1 % Eosinophil % 3.1 % Basophils % 1.0 % NRBC % 0 % CEA 2.5 ng/mL Impression: Infiltrating adenocarcinoma involving the right colon status post terminal ileum and colon, right hemicolectomy done on 01/01/2018 Final pathology report showed invasion through muscularis propria into superficial serosal connective tissues T3 Tumor size 5.5 x 4.7 x 1.5 cm Positive lymphovascular space invasion 3 out of 17 lymph node positive for metastatic disease N1 stage IIIa Anemia normocytic normochromic, etiology unclear could be multifactorial including iron deficiency, considering his age underlying myelodysplasia cannot be ruled out. discussed disease status and treatment options iith Mr Floyd. As he does have stage III disease, he is a candidate for adjuvant chemotherapy with FOLFOX. Mr Floyd agreed to pursue chemotherapy. He had a left-sided venous access device placed Dr. Hernandez on 03/19/2018 and began his first cycle of FOLFOX on 03/26/2018..Completed his adjuvant chemotherapy with FOLFOX ???12 on 08/28/2018 He did have follow-up CT of the abdomen and pelvis on 05/29/2018. . The CT reported that he had numerous right renal cyst the largest measures 3.5 cm. There was no inguinal, retroperitoneal or periaortic lymphadenopathy. No hydronephrosis in either kidney. There are few prominent lymph nodes along the mesenteric root with some induration in the mesentery. He did have diverticulosis but no acute diverticulitis-no evidence of small or large bowel obstruction Follow-up CT scan of abdomen pelvis done on November 25, 2020 shows no evidence of recurrence of disease, new supraumbilical, infraumbilical fat-containing hernias Anemia, combined B12/iron deficiency, on supplement Plan: Labs were discussed with patient with WBC at 8.3, hemoglobin 12.3, hematocrit 36.9, and platelet count of 202,000. Chemistry panel is at 130, potassium at 4.4 BUN 22 creatinine 1.1. Iron studies were within normal limits with iron at 73 and ferritin at 74. Percent saturation was also normal at 23.9. Vitamin B12 is 455. CEA has remained stable at 2.5. Patient seems to be doing well. If abdominal pain in the left lower quad continues we may need to further evaluate.. As far as anemia is concerned, his follow-up labs shows resolution of combined B12/iron deficiency anemia, patient is on supplements. We will continue with same and he will return to clinic in 3 months with CBC CMP, CEA, iron studies and B12 level in the meantime he will continue with oral iron and monthly B12 supplement and monthly port maintenance. Signed By: Rebecca Solo NMirella <<Signature on File>>
== END 2021-07-21 08:36 | disposition home or self-care (01) ==
PROVIDERS: PCP Nurse Practitioner Family; Visit Provider Nurse Practitioner Family
DX: C18.2 Malignant neoplasm of ascending colon (principal); C77.8 Secondary and unspecified malignant neoplasm of lymph nodes of multiple regions; N28.1 Cyst of kidney, acquired; K57.30 Diverticulosis of large intestine without perforation or abscess without bleeding; D51.9 Vitamin B12 deficiency anemia, unspecified; D50.9 Iron deficiency anemia, unspecified; Z79.899 Other long term (current) drug therapy
CPT/HCPCS: 80053; 82378; 82607; 82728; 83540; 83550; 85025; 96372; 96523; 99215; J3420

== ENCOUNTER 2021-08-20 09:08 | Outpatient (CLI) | payer OTHER, SELFPAY ==
[2021-08-20] MEDS: cyanocobalamin 1,000 mcg/mL SDV 1000 MCG SUBCUT (09:32)
== END 2021-08-20 09:09 | disposition home or self-care (01) ==
PROVIDERS: PCP Nurse Practitioner Family; Visit Provider Nurse Practitioner Family
DX: C18.2 Malignant neoplasm of ascending colon (principal); K52.1 Toxic gastroenteritis and colitis; T45.1X5A Adverse effect of antineoplastic and immunosuppressive drugs, initial encounter; D51.9 Vitamin B12 deficiency anemia, unspecified; Z79.899 Other long term (current) drug therapy
CPT/HCPCS: 96372; 96523; J3420

== ENCOUNTER 2021-10-21 11:08 | Oncology outpatient (recurring) (ONCR) | payer OTHER, SELFPAY ==
[2021-10-21 12:17] VITALS: BMI 33.5
[2021-10-21 12:28] LABS: Basophils % 0.6 %; Eosinophils # 0.2 10^3/uL (0.0-0.8); Eosinophils % 2.9 %; Hematocrit 35.7 % (42.0-52.0); Lymphocytes # 1.7 10^3/uL (0.8-4.8); Lymphocytes % 26.6 %; Mean Corpuscular HGB Conc 33.6 g/dL (30.0-36.0); Mean Corpuscular Hemoglobin 29.9 pg (28.0-34.0); Mean Corpuscular Volume 88.8 fl (80-94); Mean Platelet Volume 9.6 fL (7.4-10.4); Monocytes # 0.5 10^3/uL (0.2-0.9); Monocytes % 7.6 %; Neutrophils # 3.89 10^3/uL (1.8-7.7); Nucleated Red Blood Cells % 0 %; Platelet Count 220 10^3/cmm (130-400); Red Blood Count 4.02 10^6/uL (4.1-5.3); Red Cell Distribution Width 13.9 % (12.1-15.1); White Blood Count 6.3 10^3/uL (4.0-10.0)
[2021-10-21 12:58] LABS: Alanine Aminotransferase 22 U/L (0-41); Albumin Level 4.7 g/dL (3.5-5.2); Alkaline Phosphatase 71 IU/L (40-130); Anion Gap 16.2 (5-19); Aspartate Amino Transferase 16 U/L (0-40); Blood Urea Nitrogen 16 mg/dL (8-23); Calcium 9.7 mg/dL (8.5-10.5); Carbon Dioxide 27 mmol/L (22-29); Chloride 97 mmol/L (98-107); Ferritin 63 ng/mL (30-400); Globulin 2.7 g/dL (1.3-4.6); Glucose 165 mg/dL (65-115); Iron 66 ug/dL (59-158); Osmolality Calculated 287 mOsm/kg (285-295); Percent Saturation 20.8 % (20-50); Potassium 4.2 mmol/L (3.5-5.1); Sodium 136 mmol/L (136-145); Total Bilirubin 0.3 mg/dL (0.15-1.2); Total Iron Binding Capacity 316 mcg/dl; Total Protein 7.4 g/dL (6.6-8.7); Unsaturated Iron Binding 250 ug/dL (112-347)
[2021-10-21 13:14] LABS: Vitamin B12 449 pg/mL (232-1245)
[2021-10-21 13:34] LABS: Carcinoembryonic Antigen 2.3 ng/mL (0.0-4.7)
[2021-10-21] MEDS: cyanocobalamin 1,000 mcg/mL SDV 1000 MCG SUBCUT (14:39)
== END 2021-11-11 23:59 | disposition home or self-care (01) ==
PROVIDERS: PCP Nurse Practitioner Family; Visit Provider Internal Medicine Hematology & Oncology
DX: C18.2 Malignant neoplasm of ascending colon (principal); E53.8 Deficiency of other specified B group vitamins; G56.03 Carpal tunnel syndrome, bilateral upper limbs; G62.9 Polyneuropathy, unspecified; D64.9 Anemia, unspecified
CPT/HCPCS: 36415; 36591; 80053; 82378; 82607; 82728; 83540; 83550; 85025; 96372; 99214; J3420

== ENCOUNTER 2022-08-16 12:19 | Outpatient (CLI) | payer OTHER, SELFPAY ==
--- NOTE | 2022-08-16 12:27 | US_ITS ---
WS: [id number] RENAL ULTRASOUND HISTORY: STAGE 3A CHRONIC KIDNEY DISEASE COMPARISON: CT 11/25/2020 TECHNIQUE: 2-D and color Doppler imaging of the kidney submitted. Right kidney: 10.5 cm x 5.4 cm x 5.5 cm. Cortex: 1.3 cm Mild increased echogenicity of the kidney. There is no hydronephrosis. There is a lobulated cyst or 2 adjacent cysts involving the superior pole LEFT kidney measuring 3.2 x 3.4 x 4.9 cm. The additional smaller cyst seen by CT are not evident by ultrasound. Left kidney: 11.3 cm x 5.2 cm x 4.5 cm. Cortex: 1 3 cm Normal echogenicity with no hydronephrosis or mass. Aorta: Normal. Urinary Bladder: Minimally distended. US/US renal BI* [id number] IMPRESSION: 1. No hydronephrosis. 2. Normal LEFT kidney. 3. RIGHT renal cysts. No solid mass.
== END 2022-08-16 12:20 | disposition home or self-care (01) ==
LOC: RAD 12:22
PROVIDERS: PCP Nurse Practitioner Family; Visit Provider Internal Medicine Nephrology
DX: N18.31 Chronic kidney disease, stage 3a (principal); Q61.02 Congenital multiple renal cysts
CPT/HCPCS: 76770

== ENCOUNTER 2023-01-19 07:59 | Outpatient (CLI) | payer OTHER, SELFPAY ==
--- NOTE | 2023-01-19 08:12 | USCV_ITS ---
Amadeo Floyd Age: 72 Gender: M : 1950 Exam Date: 01/19/2023 09:02 Ordering Phys: Sandy Browne MD Technologist: SAL[place]OR [place] [facility] [place] AAA Screening HISTORY: Diameter (cm) AP x Transverse x Length Velocity (cm/s) Waveform Prox Aorta: 1.97 x 2.33 x 50.50 Mid Aorta: 1.55 x 1.82 x 48.30 Distal Aorta: 1.33 x 1.89 x 60.20 Right Iliac Prox: x x Left Iliac Prox: 0.97 x 1.50 x 95.60 Stent Prox Landing x x Aneurysmal Sac Max x x Lt Lat Sac Dim Rt Lat Sac Dim Stent Dist Landing x x Right Iliac Stent x x Left Iliac Stent x x Right Renal Art Left Renal Art FINDINGS: Right iliac not visualized due to patient habitus and bowel gas CONCLUSIONS No evidence of abdominal aortic aneurysm. Minimal arteriovascular disease within the abdominal aorta. Normal left iliac Right iliac not visualized Teddy Maldonado MD (Electronically Signed) Final Date: 19 January 2023 14:07 S
== END 2023-01-19 08:00 | disposition home or self-care (01) ==
LOC: RAD 08:02
PROVIDERS: PCP Nurse Practitioner Family; Visit Provider Family Medicine
DX: Z13.6 Encounter for screening for cardiovascular disorders (principal)
CPT/HCPCS: 76706

== ENCOUNTER 2023-02-09 19:38 | Observation (INO) | payer OTHER, SELFPAY ==
[2023-02-09 19:41] VITALS: BP 144/85; PULSE 68; RESP 18; TEMP 36.6; O2SAT 94; BMI 32.5
--- NOTE | 2023-02-09 19:57 | CTR_ITS ---
PROCEDURE INFORMATION: Exam: CT Head Without Contrast Exam date and time: 02/09/2023 9:10 PM Age: 72 years old Clinical indication: Injury or trauma; Fall; Blunt trauma (contusions or hematomas); Additional info: Fall with reported thinner use TECHNIQUE: Imaging protocol: Computed tomography of the head without contrast. Radiation optimization: All CT scans at this facility use at least one of these dose optimization techniques: automated exposure control; mA and/or kV adjustment per patient size (includes targeted exams where dose is matched to clinical indication); or iterative reconstruction. REPORTING DATA: Count of CT and Cardiac NM exams in prior 12 months: This patient has received 0 known CTs and 0 known cardiac nuclear medicine studies in the 12 months prior to the current study. COMPARISON: No relevant prior studies available. RADIATION DOSE METRICS: Total DLP (mGy-cm): 1091 FINDINGS: Brain: Moderate parenchymal volume loss. No midline shift. No mass, acute infarct, hemorrhage, or extra-axial fluid collection. Cerebral ventricles: No ventriculomegaly. Paranasal sinuses: Visualized sinuses are unremarkable. No fluid levels. Mastoid air cells: Visualized mastoid air cells are well aerated. Bones/joints: Unremarkable. No acute fracture. Soft tissues: Unremarkable. CT/CT head wo con* [id number] IMPRESSION: No acute intracranial abnormality.
--- NOTE | 2023-02-09 19:58 | ECG_ITS ---
[facility] Test Date: 2023-02-09 Pat Name: Amadeo Floyd Department: Room: Gender: Male Billing Supervisor: : 1950 Requested By: Amna Perea Order Number: [id number] Alexander MD: Mari Menjivar M.D. Measurements Intervals [place] Rate: 65 P: 4 [place]: 202 QRS: 39 QRSD: 112 T: 99 QT: 431 QTc: 448 Interpretive Statements SINUS RHYTHM MODERATE INTRAVENTRICULAR CONDUCTION DELAY [110+ ms QRS DURATION] NONSPECIFIC T-WAVE ABNORMALITY Compared to ECG 01/06/2018 01:53:14 Intraventricular conduction delay now present T-wave abnormality now present Sinus tachycardia no longer present Short [place] interval no longer present ST (T wave) deviation no longer present Electronically Signed On 02-10-2023 11:00:01 CDT by Mari Menjivar M.D. [id number]
--- NOTE | 2023-02-09 20:05 | W.ED.DIZZY ---
HPI - Dizziness General: Chief Complaint: Dizziness Stated Complaint: DIZZY Time Seen by Provider: 02/09/23 19:48 History of Present Illness: HPI Narrative: 72-year-old male presents to the emergency department with chronic dizziness. He states he has been dizzy for at least the last year and reports that it is worse after he takes his morning medication. He has seen his primary care provider for same and they did change his blood glucose medication but made no other changes. That last visit was approximately 4 months ago. He presents today because the dizziness persists. He states usually the dizziness occurs when he stands and does resolve over 1 to 2 minutes. He denies any chest pain or shortness of breath with the episodes. He has fallen with the most recent fall being 1 to 2 weeks ago. He did have a head strike without fall. He reports he takes blood thinner medication. Reports diabetes but no other significant medical history. Associated symptoms: Denies chest pain, chills, headache(s), nausea, nasal congestion, palpitations, syncope or vomiting Review of Systems Const: Denies: fever(s), chills, body aches or change in appetite Eyes: Denies: change in vision ENMT: Denies: throat pain or nasal congestion Card: Reports: lightheadedness (when standing); Denies: chest pain, palpitations, irregular heart rhythm, syncope or pre-syncope Resp: Denies: dyspnea, productive cough or wheezing GI: Denies: abdominal pain, nausea or vomiting : Denies: difficulty urinating, urinary frequency or urinary urgency Musc: Denies: extremity pain, limited range of motion or muscle weakness Neuro: Reports: frequent falls and dizziness (after standing. ); Denies: headache(s), weakness in extremities or vertigo PFSH ED PFSH: Family History Other Diabetes Stroke Denies family history of CAD (coronary artery disease) Cancer Hypertension Social History Smoking and tobacco status: former smoker Quit status (tobacco): has quit using tobacco Year quit tobacco: 1987 Alcohol intake: former Substance/Drug Use: never Physical Exam Const: COMMON NORMALS: no acute distress, patient oriented x3 and alert HENMT: COMMON NORMALS: normocephalic and moist oral mucous membranes HEAD & SCALP: normocephalic Eye: COMMON NORMALS: Equal, round and reactive pupils present, EOMs intact bilaterally and conjunctivae normal CONJUNCTIVA: Yes conjunctivae normal PUPIL: Yes Equal, round and reactive pupils present Neck/C-Spine: COMMON NORMALS: full ROM and no JVD Chest: COMMONS NORMALS: normal inspection of the chest Resp: COMMON NORMALS: normal respiratory effort, No use of accessory muscles and clear to auscultation bilaterally AUSCULTATION: clear to auscultation bilaterally Cardio: COMMON NORMALS: no JVD, regular rate, regular rhythm and No murmurs present (Cardio) RATE: regular rate RHYTHM: regular rhythm GI: COMMON NORMALS: negative for Normal to inspection, nondistended, normoactive bowel sounds present (distended, but non tender and soft on exam ) Extremity: COMMON NORMALS: normal to inspection, full ROM and capillary refill normal Neuro: COMMON NORMALS: patient oriented x3, moves all extremities, no focal motor deficits and no sensory deficits noted SENSORIUM/ORIENTATION: Yes alert Skin: COMMON NORMALS: no rashes or lesions noted GENERAL SKIN EXAM: no rashes or lesions noted Course Vital Signs: Vital signs: Vital Signs Temperature 97.9 F 02/09/23 19:41 Pulse Rate 66 02/09/23 22:08 Respiratory Rate 18 02/09/23 22:08 Blood Pressure 161/74 02/09/23 22:08 Pulse Oximetry 95 02/09/23 22:08 Oxygen Delivery Me thod Room Air 02/09/23 22:08 MDM - Dizziness Medical Decision Making 72-year-old presents to the emergency department with a complaint of dizziness. He states he has had this complaint for approximately 1 year. Was seen approximately 4 months ago by PCP with 1 medication change for his diabetes. He states that it is worse in the morning after he takes his morning medication. While sitting he has no dizziness however upon standing he becomes dizzy for 1 to 2 minutes but this does seem to improve. He presents today for persistent symptoms, but no new symptoms. Denies chest pain, shortness of breath, extremity weakness. He has had falls related to the dizziness with the most recent being [address] without acute findings. During lab evaluation TORY and hyponatremia noted. No leukocytosis. Serum ketones were obtained and were unremarkable. Additionally blood gas was obtained without significant acidosis. Discussed case with and he agrees to admission. Normal saline initiated, chest x-ray obtained with a sublte ingula infiltrate reported. Other labs pending per hospitalist request. NO changes in patient status. Differential Diagnosis Likely adverse reaction to drug, benign paroxysmal positional vertigo, orthostatic hypotension and cerebrovascular accident Lab Data No leukocytosis identified however patient is hyponatremic with low chloride and elevated anion gap. CO2 of 21 with a BUN of 60 and a creatinine of 2.7. Glucose is also demonstrated to 350. There has been no significant history of previous TORY. Liver enzymes unremarkable. 02/09/23 20:08 02/09/23 20:[address] 02/09/23 19:57 IMPRESSION: No acute intracranial abnormality. Chest X-Ray 02/09/23 21:27 IMPRESSION: Subtle area of infiltrate in the lingula. Laboratory Results WBC 6.92 10^3/uL (3.29-11.43) 02/09/23 20:08 RBC 3.96 10^6/uL (3.85-5.65) 02/09/23 20:08 Hgb 11.80 g/dL (11.27-16.99) 02/09/23 20:08 Hct 35.0 % (37-53) L 02/09/23 20:08 MCV 88.4 fl (82-101) 02/09/23 20:08 MCH 29.8 pg (27-33) 02/09/23 20:08 MCHC 33.7 g/dL (30-55) 02/09/23 20:08 RDW 13.3 % (12.1-15.1) 02/09/23 20:08 Plt Count 284 10^3/cmm (157-399) 02/09/23 20:08 MPV 10.1 fL (7.4-10.4) 02/09/23 20:08 Neut % (Auto) 65.9 % 02/09/23 20:08 Lymph % (Auto) 24.1 % 02/09/23 20:08 [place] % (Auto) 7.2 % 02/09/23 20:08 Eos % (Auto) 1.3 % 02/09/23 20:08 Baso % (Auto) 0.9 % 02/09/23 20:08 Neut # (Auto) 4.56 10^3/uL (1.8-7.7) 02/09/23 20:08 Lymph # (Auto) 1.7 10^3/uL (0.8-4.8) 02/09/23 20:08 [place] # (Auto) 0.5 10^3/uL (0.2-0.9) 02/09/23 20:08 Eos # (Auto) 0.1 10^3/uL (0.0-0.8) 02/09/23 20:08 Baso # (Auto) 0.1 10^3/uL (0.0-0.1) 02/09/23 20:08 Nucleated RBC % (auto) 0 % 02/09/23 20:08 Nucleated RBCs # 0.0 /100WBC 02/09/23 20:08 Specimen Type Arterial 02/09/23 21:40 Sample Site Brachial, left 02/09/23 21:40 ABG pH 7.32 (7.35-7.45) L 02/09/23 21:40 ABG pCO2 43.2 mmHg (35-45) 02/09/23 21:40 ABG pO2 61.5 mmHg (80.0-100.0) L 02/09/23 21:40 ABG HCO3 22.3 mmol/L (22-26) 02/09/23 21:40 ABG O2 Saturation 89.8 02/09/23 21:40 ABG Base Excess -3.7 mmol/L (-2.0-2.0) L 02/09/23 21:40 King Test N/a 02/09/23 21:40 A-a O2 Gradient 4.5 mmHg (5-10) L 02/09/23 21:40 Hematocrit 34.8 % (42-52) L 02/09/23 21:40 Hgb O2 Saturation 87.3 % (95-100) L 02/09/23 21:40 Carboxyhemoglobin 1.8 %THgb (0.4-20.1) 02/09/23 21:40 Methemoglobin 0.9 % (0.4-1.5) 02/09/23 21:40 Total Hemoglobin 11.4 g/dL (14-18) L 02/09/23 21:40 Sodium 133.0 mmol/L (131-143) 02/09/23 21:40 Potassium 3.4 mmol/L (3.5-5.0) L 02/09/23 21:40 Glucose 385.0 mg/dL (70-115) H 02/09/23 21:40 Ionized Calcium 1.2 mmol/L (1.1-1.4) 02/09/23 21:40 O2 Delivery Device None 02/09/23 21:40 O2 Liters/Min 0.0 % 02/09/23 21:40 FiO2 21.0 % 02/09/23 21:40 Picking Machine Operator Helper ID Alewe 02/09/23 21:40 Sodium 130 mmol/L (136-145) L 02/09/23 20:08 Potassium 3.6 mmol/L (3.5-5.1) 02/09/23 20:08 Chloride 92 mmol/L (98-107) L 02/09/23 20:08 Carbon Dioxide 21 mmol/L (22-29) L 02/09/23 20:08 Anion Gap 20.6 (5-19) H 02/09/23 20:08 BUN 60 mg/dL (8-23) H 02/09/23 20:08 Creatinine 2.7 mg/dL (0.7-1.2) H 02/09/23 20:08 GFR Calculation Not Reportable 02/09/23 20:08 Glucose 350 mg/dL (65-115) H 02/09/23 20:08 Calculated Osmolality 301 mOsm/kg (285-295) H 02/09/23 20:08 Calcium 9.8 mg/dL (8.5-10.5) 02/09/23 20:08 Magnesium 1.9 mg/dL (1.7-2.3) 02/09/23 20:08 Total Bilirubin 0.3 mg/dL (0.15-1.2) 02/09/23 20:08 AST 23 U/L (0-40) 02/09/23 20:08 ALT 22 U/L (0-41) 02/09/23 20:08 Alkaline Phosphatase 138 U/L (40-130) H 02/09/23 20:08 Creatine Kinase 205 U/L (39-308) 02/09/23 20:08 Troponin T Gen 5 ng/L 30 ng/L (0-15) H 02/09/23 20:08 C-Reactive Protein 3.0 mg/L (0.0-4.9) 02/09/23 20:08 Total Protein 8.2 g/dL (6.6-8.7) 02/09/23 20:08 Albumin 5.2 g/dL (3.5-5.2) 02/09/23 20:08 Globulin 3.0 g/dL (1.3-4.6) 02/09/23 20:08 Procalcitonin 0.10 ng/mL (0-0.5) 02/09/23 20:08 Serum Ketones Negative (Negative) 02/09/23 20:08 All radiology interpretation(s) finalized by discharge EKG Data EKG 1: Interpretation: First-degree heartNormal sinus rhythm rate of 65. LOC with a SC interval of 202. QRS duration normal with a interval of 112. QTc of 442. No acute ST segment changes or T wave abnormalities identified. Discharge Plan Discharge Patient Disposition: Admitted As Inpatient Clinical Impression: TORY (acute kidney injury), Acute hyponatremia, Acute hyperglycemia Condition: Stable Prescriptions: No Action etodolac 300 mg capsule 300 mg PO BID cyanocobalamin (vitamin B-12) 1,000 mcg/mL kit 1,000 mcg IM DAILY 7 Days Qty: 1 5RF Rx Instructions: 1 injection daily for 3 days then 1 injection weekly for 4 weeks and then monthly injections metformin 850 mg tablet 850 mg PO TID omeprazole 20 mg capsule,delayed release(DR/EC) 20 mg PO DAILY bupropion HCl [Wellbutrin SR] 150 mg tablet sustained-release 12 hr 300 mg PO QAM cholecalciferol (vitamin D3) [Vitamin D3] 50 mcg (2,000 unit) capsule 50 mcg PO DAILY diltiazem HCl 120 mg capsule,extended release 24hr 120 mg PO DAILY duloxetine [Cymbalta] 30 mg capsule,delayed release(DR/EC) 30 mg PO DAILY ferrous sulfate 325 mg (65 mg iron) tablet 325 mg PO DAILY finasteride 5 mg tablet 5 mg PO DAILY hydrochlorothiazide 25 mg tablet 25 mg PO DAILY Lantus Solostar U-100 Insulin 100 unit/mL (3 mL) insulin pen 35 unit SUBCUT DAILY losartan 100 mg tablet 100 mg PO DAILY pravastatin 80 mg tablet 80 mg PO DAILY pregabalin 75 mg capsule 75 mg PO BID Referrals: Laura Rdz, NEUROSCIENCE DIRECTOR NA [Primary Care Provider] - Coding Level of Care Code ED [employer]iner[employer] Plant General Supervisor for Darrell Smith
[2023-02-09 20:16] LABS: Basophils # 0.1 10^3/uL (0.0-0.1); Basophils % 0.9 %; Eosinophils # 0.1 10^3/uL (0.0-0.8); Eosinophils % 1.3 %; Lymphocytes # 1.7 10^3/uL (0.8-4.8); Lymphocytes % 24.1 %; Mean Corpuscular HGB Conc 33.7 g/dL (30-55); Mean Corpuscular Hemoglobin 29.8 pg (27-33); Mean Corpuscular Volume 88.4 fl (82-101); Mean Platelet Volume 10.1 fL (7.4-10.4); Monocytes # 0.5 10^3/uL (0.2-0.9); Monocytes % 7.2 %; Neutrophils # 4.56 10^3/uL (1.8-7.7); Neutrophils % 65.9 %; Nucleated Red Blood Cells % 0 %; Platelet Count 284 10^3/cmm (157-399); Red Blood Count 3.96 10^6/uL (3.85-5.65); Red Cell Distribution Width 13.3 % (12.1-15.1); White Blood Count 6.92 10^3/uL (3.29-11.43)
[2023-02-09 20:33] LABS: Alanine Aminotransferase 22 U/L (0-41); Albumin Level 5.2 g/dL (3.5-5.2); Alkaline Phosphatase 138 U/L (40-130); Anion Gap 20.6 (5-19); Aspartate Amino Transferase 23 U/L (0-40); Blood Urea Nitrogen 60 mg/dL (8-23); Calcium 9.8 mg/dL (8.5-10.5); Carbon Dioxide 21 mmol/L (22-29); Chloride 92 mmol/L (98-107); Glucose 350 mg/dL (65-115); Osmolality Calculated 301 mOsm/kg (285-295); Potassium 3.6 mmol/L (3.5-5.1); Sodium 130 mmol/L (136-145); Total Bilirubin 0.3 mg/dL (0.15-1.2); Total Protein 8.2 g/dL (6.6-8.7)
[2023-02-09 21:22] LABS: Ketone (Acetest) Serum Negative (Negative)
--- NOTE | 2023-02-09 21:27 | XRR_ITS ---
PROCEDURE INFORMATION: Exam: XR Chest Exam date and time: 02/09/2023 9:50 PM Age: 72 years old Clinical indication: Other: Dizzy; Additional info: Hank and admission, dizzy TECHNIQUE: Imaging protocol: Radiologic exam of the chest. Views: 1 view. COMPARISON: CR XR chest 1V [id number] 03/19/2018 5:38 PM FINDINGS: Tubes, catheters and devices: Central line in place with its tip in the inferior portion of the left brachiocephalic vein. Lungs: Subtle area of infiltrate in the lingula. Pleural spaces: Unremarkable. No pleural effusion. No pneumothorax. Heart/Mediastinum: Unremarkable. No cardiomegaly. Diaphragm: Mild elevation of right hemidiaphragm. Bones/joints: Degenerative change in the right shoulder. XR/XR chest 1V [id number] IMPRESSION: Subtle area of infiltrate in the lingula.
[2023-02-09 21:46] LABS: ABG PCO2 43.2 mmHg (35-45); ABG PH Result 7.32 (7.35-7.45); Alveolar-Arterial Oxygen Gradi 4.5 mmHg (5-10); Arterial Blood Gas Hematocrit 34.8 % (42-52); Base Excess ABG -3.7 mmol/L (-2.0-2.0); Blood Gas Sample Site Brachial, left; Blood Gas Sample Type Arterial; Carboxyhemoglobin 1.8 %THgb (0.4-20.1); HCO3 ABG 22.3 mmol/L (22-26); HGB O2 Sat 87.3 % (95-100); Ionized Calcium Level - ABG 1.2 mmol/L (1.1-1.4); Methemoglobin 0.9 % (0.4-1.5); Oxygen Saturation ABG 89.8; PO2 ABG 61.5 mmHg (80.0-100.0); Potassium Level - ABG 3.4 mmol/L (3.5-5.0); Total Hemoglobin 11.4 g/dL (14-18)
[2023-02-09 22:07] LABS: Creatine Phosphokinase 205 U/L (39-308); Magnesium 1.9 mg/dL (1.7-2.3)
[2023-02-09 22:08] VITALS: BP 161/74; PULSE 66; RESP 18; O2SAT 95
[2023-02-09 22:08] LABS: Troponin T (5th) Once 30 ng/L (0-15)
[2023-02-09] MEDS: sodium chloride 0.9% 1,000 ML 999 ML IV (22:09)
[2023-02-09 22:26] VITALS: PULSE 60
--- NOTE | 2023-02-09 22:54 | P.HP_ITS ---
Providers/Chief Complaint Admitting Physician: Pradip Keller MD Primary Care Provider: GEORGETTE Clifton Chief Complaint: Dizzy History of Present Illness Amadeo Floyd is a 72 year old male with a past medical history of colon cancer, status post resection, History of BPH, history of type 2 diabetes mellitus, who presents [facility] for dizziness. Patient tells me that he has had dizziness for a long period of time, but today, he has had significant more episodes dizziness, and generalized weakness. No vertigo, denies passing out, no headache, no blurry vision, no strokelike symptoms no facial droop, no slurring of her words. Denies a cardiovascular history, no chest pain. Denies history of smoking no history of COPD. No dysuria, hematuria no history of UTI. Denies any cough, any fevers. Does report a good appetite he has been hydrating well. He does tell me that about a week ago he had a significant dizziness episode and he fell and hit the back of his head. Denies ever passing out. He denies smoking, denies alcoholism, denies drug use Review of Systems Const: Denies: fever(s) Eyes: Denies: change in vision ENMT: Denies: throat pain Card: Reports: lightheadedness; Denies: chest pain, palpitations, syncope or pre-syncope Resp: Denies: dyspnea or productive cough GI: Denies: abdominal pain or nausea : Denies: flank pain or difficulty urinating Musc: Denies: neck pain or back pain Skin/Breast: Denies: rash Neuro: Reports: weakness in extremities, frequent falls and dizziness; Denies: headache(s), numbness in extremities, lack of coordination, difficulty walking, vertigo, confusion, Slurred speech present or difficulty communicating thoughts Psych: Denies: anxiety Endo: Denies: polyuria Tej/Lymph: Denies: easy bruising Medications/Allergies Home Medications Medication Instructions Recorded Confirmed Last Taken Type cyanocobalamin (vitamin B-12) 1,000 mcg IM DAILY 1 week #1 ea 07/31/19 10/21/21 Unknown Rx 1,000 mcg/mL injection kit etodolac 300 mg capsule 300 mg PO BID 07/31/19 10/21/21 Unknown History bupropion HCl 150 mg tablet,12 hr 300 mg PO QAM 11/06/19 10/21/21 Unknown History sustained-release (Wellbutrin SR) cholecalciferol (vitamin D3) 50 50 mcg PO DAILY 11/06/19 10/21/21 Unknown Hi story mcg (2,000 unit) capsule (Vitamin D3) diltiazem HCl 120 mg 120 mg PO DAILY 11/06/19 10/21/21 Unknown History capsule,extended release 24 hr duloxetine 30 mg capsule,delayed 30 mg PO DAILY 11/06/19 10/21/21 Unknown History release (Cymbalta) ferrous sulfate 325 mg (65 mg 325 mg PO DAILY 11/06/19 10/21/21 Unknown History iron) tablet finasteride 5 mg tablet 5 mg PO DAILY 11/06/19 10/21/21 Unknown History hydrochlorothiazide 25 mg tablet 25 mg PO DAILY 11/06/19 10/21/21 Unknown History insulin glargine 100 unit/mL (3 35 unit SUBCUT DAILY 11/06/19 10/21/21 Unknown History mL) subcutaneous pen (Lantus Solostar U-100 Insulin) losartan 100 mg tablet 100 mg PO DAILY 11/06/19 10/21/21 Unknown History metformin 850 mg tablet 850 mg PO TID 11/06/19 10/21/21 Unknown History omeprazole 20 mg capsule,delayed 20 mg PO DAILY 11/06/19 10/21/21 Unknown History release pravastatin 80 mg tablet 80 mg PO DAILY 11/06/19 10/21/21 Unknown History pregabalin 75 mg capsule 75 mg PO BID 11/06/19 10/21/21 Unknown History Allergies Allergy/AdvReac Type Severity Reaction Status Date / Time Sulfa (Sulfonamide Allergy Intermediate Swelling Verified 10/21/21 13:43 Antibiotics) PFSH Acute PFSH: Medical History History of type 2 diabetes mellitus Surgical History History of colon resection 2017 History of colonoscopy with polypectomy 2018 Family History (Updated 02/09/23 @ 23:03 by Pradip Keller MD) Mother Alzheimer's dementia Other Diabetes Stroke Denies family history of CAD (coronary artery disease) Cancer Hypertension Social History Smoking and tobacco status: former smoker Quit status (tobacco): has quit using tobacco Year quit tobacco: 1987 Alcohol intake: former Substance/Drug Use: never Vitals/I&O/Wt Last Vital Signs Temp 97.9 F 02/09/23 19:41 Pulse 66 02/09/23 22:08 Resp 18 02/09/23 22:08 BP 161/74 02/09/23 22:08 Pulse Ox 95 02/09/23 22:08 O2 Del Method Room Air 02/09/23 22:08 Weight last 48 hrs Weight 99.79 kg Physical Exam Const: COMMON NORMALS: no acute distress and patient oriented x3 GENERAL APPEARANCE: cooperative and well developed HENMT: COMMON NORMALS: normocephalic and Normal external nose present HEAD & SCALP: normocephalic FACE & SINUS: normal facial exam NOSE: Normal external nose present Eye: COMMON NORMALS: Equal, round and reactive pupils present, EOMs intact emani aterally, conjunctivae normal and no scleral icterus CONJUNCTIVA: Yes con junctivae normal PUPIL: Yes Equal, round and reactive pupils present Neck/C-Spine: COMMON NORMALS: full ROM, no lymphadenopathy, no JVD, Thyroid normal and No carotid bruits THYROID: Thyroid normal Lymph: LYMPHATIC: no lymphadenopathy noted Chest: COMMONS NORMALS: normal inspection of the chest Resp: COMMON NORMALS: normal respiratory effort, No retractions, No use of accessory muscles and clear to auscultation bilaterally AUSCULTATION: clear to auscultation bilaterally Cardio: COMMON NORMALS: regular rate, regular rhythm, S1 normal heart sound present, S2 normal heart sound present, No murmurs present (Cardio) and Peripheral pulses 2+ throughout RATE: regular rate RHYTHM: regular rhythm HEART SOUNDS: S1 normal heart sound present and S2 normal heart sound present PERIPHERAL PULSES: Peripheral pulses 2+ throughout GI: COMMON NORMALS: Normal to inspection, nondistended, normoactive bowel sounds present, Soft to palpation and non-tender OTHER: Large ventral hernia, incisional : BLADDER/KIDNEY EXAM: Yes no CVA tenderness Back/Pelvis: COMMON NORMALS: no CVA tenderness Extremity: COMMON NORMALS: normal to inspection, full ROM, capillary refill normal, no calf tenderness and no pedal edema Neuro: COMMON NORMALS: patient oriented x3, CN's II-XII intact bilaterally, moves all extremities and no sensory deficits noted Psych: COMMON NORMALS: mental status grossly normal, Normal thought process present, cooperative and speech normal APPEARANCE: Yes well kempt SPEECH: Yes normal speech THOUGHT PROCESS: Normal thought process present Skin: COMMON NORMALS: turgor normal and no jaundice GENERAL SKIN EXAM: turgor normal Data 02/09/23 20:08 02/09/23 20:08 A&P Assessment and plan (1) TORY (acute kidney injury): (2) Acute hyperglycemia: (3) Malignant neoplasm of ascending colon: (4) B12 deficiency: (5) History of colon cancer: (6) Vitamin B12 deficiency: (7) Peripheral neuropathy: (8) Dizziness: Plan Dizziness -Etiology unclear, could be dehydration we will check orthostatic vitals, IV fluids -Serial troponins, serial EKGs, telemetry monitoring -CT of the head ordered, no acute findings -We will order UA -TSH -Could be from patient's peripheral neuropathy check B12 levels -PT OT Hyperglycemia -Patient is he is not exactly sure this evening, his glargine he takes -Start glargine 10 units subcu daily -Low-dose sliding scale Type 2 diabetes mellitus History of colon cancer Hypertension Acute kidney injury, creatinine 2.5, possibly sec to dehydration, CPK within normal limits, hold hydrochlorothiazide, hold losartan, IV fluids Attestations Medical Necessity Statement*: Patient requires hospitalization, outpatient with observation, for dizziness, TORY, hyperglycemia Diagnoses TORY (acute kidney injury) N17.9 Acute hyperglycemia R73.9 Malignant neoplasm of ascending colon C18.2 B12 deficiency E53.8 History of colon cancer Z85.038 Peripheral neuropathy G62.9 Dizziness R42
[2023-02-09 23:02] LABS: Lactic Sepsis W/Reflex 1.4 mmol/L (0.5-2.2)
--- NOTE | 2023-02-09 23:05 | PC.NURSE ---
Report called to TIM Baker on Med-Surg. All questions and concerns addressed at time of report.
[2023-02-09 23:25] VITALS: BP 148/63; BP 153/79; BP 156/68; BP 159/69; PULSE 57; PULSE 58; PULSE 60; PULSE 65; RESP 20; TEMP 36.4; O2SAT 96
--- NOTE | 2023-02-09 23:31 | PC.NURSE ---
Patient does not know his medications and does not have medications with him. Unable to complete med rec at this time.
[2023-02-09 23:39] VITALS: O2SAT 92
[2023-02-09] MEDS: enoxaparin 40 mg/0.4 mL Syringe SUBCUT (23:49)
[2023-02-09] MEDS: sodium chloride 0.9% 1,000 ML 75 ML IV (23:49)
[2023-02-09] MEDS: pantoprazole 40 mg SDV IVP (23:55)
[2023-02-10] VITALS (10 sets, daily range): BP systolic 115–183; BP diastolic 64–90; PULSE 57–74; RESP 15–17; TEMP 36.4–37.1; O2SAT 95–97
[2023-02-10 00:11] LABS: Chol HDL Ratio 5.12 mg/dL (1.0-5.00); Cholesterol 256 mg/dL (0-200); HDL Cholesterol 50 mg/dL (60-100); LDL Cholesterol Calculated 160 mg/dL (50-129); Thyroid Stimulating Hormone 1.56 uIU/mL (0.27-4.20); Triglycerides 229 mg/dL (0-150); Vitamin B12 481 pg/mL (232-1245)
[2023-02-10 00:16] LABS: Alcohol Level < 10 mg/dL (0-10)
[2023-02-10 00:21] LABS: Estmated Average Glucose 255; Folate Level > 20.0 ng/mL (4.5-32.2); Hemoglobin A1C 10.5 % (4.0-6.0)
[2023-02-10 04:38] LABS: Add Urine Microscopic? NO; Charge for UA Resulting for Rev
[2023-02-10 04:42] LABS: Specific Gravity, Urine 1.005 (1.005-1.030); Urine Appearance Clear (CLEAR); Urine Color Yellow (Yellow); pH Urine 5 (5-7)
[2023-02-10 04:43] LABS: Bilirubin Urine Neg (Negative); Blood Urine Neg (Negative); Glucose Urine UA 2+ (Normal); Ketones Urine Negative (Negative); Leukocyte Esterase Urine Negative (Negative); Nitrate Urine Negative (Negative); Protein Urine Neg (Negative); Urobilinogen Urine Neg (Negative)
[2023-02-10 04:49] LABS: Basophils # 0.1 10^3/uL (0.0-0.1); Basophils % 1.1 %; Eosinophils # 0.1 10^3/uL (0.0-0.8); Eosinophils % 2.3 %; Hematocrit 35.5 % (37-53); Lymphocytes # 1.6 10^3/uL (0.8-4.8); Lymphocytes % 30.1 %; Mean Corpuscular HGB Conc 31.8 g/dL (30-55); Mean Corpuscular Hemoglobin 29.9 pg (27-33); Mean Corpuscular Volume 93.9 fl (82-101); Mean Platelet Volume 10.5 fL (7.4-10.4); Monocytes # 0.5 10^3/uL (0.2-0.9); Monocytes % 8.8 %; Neutrophils # 2.98 10^3/uL (1.8-7.7); Neutrophils % 56.7 %; Nucleated Red Blood Cells % 0 %; Platelet Count 214 10^3/cmm (157-399); Red Blood Count 3.78 10^6/uL (3.85-5.65); Red Cell Distribution Width 13.4 % (12.1-15.1); White Blood Count 5.25 10^3/uL (3.29-11.43)
[2023-02-10 04:52] LABS: Amphetamines Screen Urine Negative (Negative); Barbiturates Screen Urine Negative (Negative); Benzodiazepines Screen Urine Negative (Negative); Cocaine Screen Urine Negative (Negative); Opiate Screen Urine Negative (Negative); PCP Screen Urine Negative (Negative); THC Screen Urine Negative (Negative)
[2023-02-10 05:20] LABS: Alanine Aminotransferase 21 U/L (0-41); Alkaline Phosphatase 118 U/L (40-130); Anion Gap 20.8 (5-19); Aspartate Amino Transferase 22 U/L (0-40); Blood Urea Nitrogen 54 mg/dL (8-23); Carbon Dioxide 15 mmol/L (22-29); Chloride 99 mmol/L (98-107); Creatinine Clr Calc Pharmacy 34.3067; Globulin 2.9 g/dL (1.3-4.6); Glucose 425 mg/dL (65-115); Osmolality Calculated 305 mOsm/kg (285-295); Phosphorus 3.9 mg/dL (2.5-4.5); Potassium 3.8 mmol/L (3.5-5.1); Sodium 131 mmol/L (136-145); Total Bilirubin 0.2 mg/dL (0.15-1.2); Total Protein 6.9 g/dL (6.6-8.7)
[2023-02-10 05:21] LABS: NT Pro B Type Natriuretic Pept 44 pg/mL (0-125)
[2023-02-10] MEDS: buPROPion SR (12 HR) 150 mg Tablet 300 MG PO (05:47)
[2023-02-10 06:45] LABS: Glucose Point of Care 394 mg/dL (70-110)
[2023-02-10] MEDS: finasteride 5 mg Tablet PO (08:47)
[2023-02-10] MEDS: insulin lispro 100 unit/1 mL SUBCUT ×2 (08:47→11:55)
[2023-02-10] MEDS: pregabalin 75 mg Capsule PO ×2 (08:47→17:45)
[2023-02-10] MEDS: duloxetine 30 mg Capsule PO (08:47)
[2023-02-10] MEDS: dilTIAZem ER (24HR) 120 mg Capsule PO (08:47)
--- NOTE | 2023-02-10 10:08 | PC.CHAP ---
Pastoral Care Encounter/Spiritual Assessment Type of Contact [] Declined division traffic superintendent visit [] Patient/Family/Request visit [] Outpatient visit [] Follow-up visit [] Physician referral [] Code/Alert [x] Routine visit [] Staff referral [] Actively dying [] Patient sleeping [] Family support [] [] Out of room [] Palliative care [] [] Receiving care in room [] Pre-surgical visit [] Trauma [] Long length of stay [] ICU visit [] Other: Relational/Emotional Strength [x] Patient feels connected with others/family/visitors/staff [] Distress [] Loneliness/isolation [] Abandonment Spirituality of Patient [] Person of Ximena [] Attends Holiness of their Ximena [] Believes in Prayer [] Reads Bible or Sikh materials [x] There are Spiritual issues to be addressed [employer] Interventions [x] Prayer [] Active listening [] Non-anxious presence [x] Spiritual/emotional support [] Crisis/trauma care [] Spiritual counseling [] Bereavement support [] Provided bereavement packet [] Provided Bible/devotional materials [] Provided toy/stuffed animal, coloring book to patient or family member [] Provided Communion [] Anointing/[place] [] Salvation [x] Completed spiritual assessment [] Other: Impact on Illness or Injury [] Angry [] Fearful [] Anxious [] Often cries [] Exhaustion [] Unable to work [] Unable to attend sikh [] Unable to walk/stand [] Unable to read [] Unable to drive [] Unable to eat/drink [] Unable to sleep [] Unable to be with family [] Patient intubated [] Other: Summary Time spent with patient 5 min
--- NOTE | 2023-02-10 10:20 | PC.PHAR ---
[facility] AT 7:40 AM AND 10:00 AM 02/10/23
[2023-02-10] MEDS: insulin glargine 100 units/1 mL 40 UNIT SUBCUT (10:49)
--- NOTE | 2023-02-10 11:00 | PC.SOCIAL ---
Pg 2 IMM Explained to pt Pg 2 IMM. No questions voiced. Provided pt a copy. Initialed, dated, & timed a copy & placed in chart.
[2023-02-10 11:39] LABS: Glucose Point of Care 427 mg/dL (70-110)
[2023-02-10] MEDS: insulin lispro 100 unit/1 mL 20 UNIT SUBCUT (11:55)
--- NOTE | 2023-02-10 12:30 | PM.PN ---
Subjective Subjective: HPI: Amadeo Floyd is a 72 year old male with a past medical history of colon cancer, status post resection, History of BPH, history of type 2 diabetes mellitus, who presents [facility] for dizziness.? Patient tells me that he has had dizziness for a long period of time, but today, he has had significant more episodes dizziness, and generalized weakness.? No vertigo, denies passing out, no headache, no blurry vision, no strokelike symptoms no facial droop, no slurring of her words.? Denies a cardiovascular history, no chest pain.? Denies history of smoking no history of COPD.? No dysuria, hematuria no history of UTI.? Denies any cough, any fevers.? Does report a good appetite he has been hydrating well.? He does tell me that about a week ago he had a significant dizziness episode and he fell and hit the back of his head.? Denies ever passing out.? He denies smoking, denies alcoholism, denies drug use. Patient states his dizziness has completely resolved. He has been able to stand up and walk with a walker to the bathroom. This however is not his baseline. He states he lives alone, and is getting weaker. Vitals/I&O/Wt Last Vital Signs Temp 98.0 F 02/10/23 08:00 Pulse 62 02/10/23 12:00 Resp 17 02/10/23 12:00 BP 153/75 02/10/23 12:00 Pulse Ox 97 02/10/23 12:00 O2 Del Method Room Air 02/10/23 03:37 02/09/23 02/10/23 02/10/23 22:59 06:59 14:59 Intake Total 1300 / 1300 360 / 360 Output Total 400 / 400 600 / 600 Balance 900 / 900 -240 / -240 Weight last 48 hrs Weight 99.79 kg Physical Exam Narrative: Older male. In no acute distress Neurologic: Alert and oriented x3. Nonfocal motor or sensory exam. Cranial nerves II through XII grossly intact. Lungs: Overall diminished. No wheezes rales or rhonchi Heart: Normal S1-S2 no loud murmur click gallop or rub Abdomen: Soft nontender nondistended positive bowel sounds no hepatosplenomegaly Extremities no clubbing cyanosis or edema Data 02/10/23 04:40 02/10/23 04:46 A&P Assessment and plan (1) Dizziness: Dizziness is resolved today. PT evaluated patient and found he was negative for Juarez-Hallpike maneuver. Recommend physical therapy. (2) TORY (acute kidney injury): Kidney function has improved from 2.7 on admission to 2.2 today. It appears he has a baseline of 1.1-1.2 and he has been up to 1.4 maximum in the past 4 years. Normal serum creatinine was 1.1 on 07/21/2021. It was slightly elevated at 1.3 on 10/21/2021. (3) Acute hyperglycemia: While the patient does not have ketones in his urinalysis, he has acidosis as evidenced by a bicarb level of 15. He reports taking Lantus 40 units every morning which I gave him a little late. He is requiring higher doses of short acting insulin will follow expectantly. A beta hydroxybutyrate level is pending. (4) Generalized weakness: Home health care versus SNF. Will consult case management (5) Acidosis due to secondary diabetes: Above (6) Personal history of other malignant neoplasm of large intestine: Postsurgical resection with no chemoradiation. (7) Acute hyponatremia: Falsely negative due to hyperglycemia Attestations Medical Necessity Statement*: Patient requires hospitalization, outpatient with observation, for dizziness, TORY, hyperglycemia Coding Level of Care Code Acute Code for [facility] Diagnoses Dizziness R42 TORY (acute kidney injury) N17.9 Acute hyperglycemia R73.9 Generalized weakness R53.1 Acidosis due to secondary diabetes E13.10 Personal history of other malignant neoplasm of large intestine Z85.038 Acute hyponatremia E87.1
[2023-02-10 12:50] LABS: Glucose Point of Care 353 mg/dL (70-110)
[2023-02-10] MEDS: insulin lispro 100 unit/1 mL 10 UNIT SUBCUT (13:26)
[2023-02-10] MEDS: sodium chloride 0.9% 1,000 ML 75 ML IV (13:28)
[2023-02-10 14:41] LABS: Glucose Point of Care 130 mg/dL (70-110)
[2023-02-10 17:28] LABS: Glucose Point of Care 58 mg/dL (70-110)
[2023-02-10 17:28] LABS: Glucose Point of Care 94 mg/dL (70-110)
[2023-02-10] MEDS: atorvastatin 40 mg Tablet PO (20:09)
[2023-02-10] MEDS: sodium chloride 0.9% 1,000 ML 100 ML IV (20:09)
[2023-02-10 21:03] LABS: Glucose Point of Care 189 mg/dL (70-110)
[2023-02-10] MEDS: enoxaparin 40 mg/0.4 mL Syringe SUBCUT (23:45)
[2023-02-11] VITALS (12 sets, daily range): BP systolic 130–187; BP diastolic 67–95; PULSE 60–94; RESP 15–19; TEMP 36.4–37.1; O2SAT 95–97
[2023-02-11] MEDS: buPROPion SR (12 HR) 150 mg Tablet 300 MG PO (06:36)
[2023-02-11] MEDS: sodium chloride 0.9% 1,000 ML 100 ML IV (06:36)
[2023-02-11 06:44] LABS: Glucose Point of Care 117 mg/dL (70-110)
[2023-02-11 07:06] LABS: Anion Gap 15.7 (5-19); Blood Urea Nitrogen 40 mg/dL (8-23); Calcium 9.1 mg/dL (8.5-10.5); Carbon Dioxide 23 mmol/L (22-29); Chloride 106 mmol/L (98-107); Glucose 125 mg/dL (65-115); Osmolality Calculated 303 mOsm/kg (285-295); Potassium 3.7 mmol/L (3.5-5.1); Sodium 141 mmol/L (136-145)
[2023-02-11] MEDS: pregabalin 75 mg Capsule PO ×2 (10:17→17:13)
[2023-02-11] MEDS: duloxetine 30 mg Capsule PO (10:17)
[2023-02-11] MEDS: dilTIAZem ER (24HR) 120 mg Capsule PO (10:17)
[2023-02-11] MEDS: finasteride 5 mg Tablet PO (10:17)
[2023-02-11] MEDS: insulin glargine 100 units/1 mL 20 UNIT SUBCUT (10:26)
[2023-02-11 11:43] LABS: Glucose Point of Care 286 mg/dL (70-110)
[2023-02-11] MEDS: insulin lispro 100 unit/1 mL SUBCUT ×2 (11:56→17:13)
[2023-02-11 17:02] LABS: Glucose Point of Care 261 mg/dL (70-110)
--- NOTE | 2023-02-11 17:36 | PM.PN ---
Subjective Subjective: HPI: Amadeo Floyd is a 72 year old male with a past medical history of colon cancer, status post resection, History of BPH, history of type 2 diabetes mellitus, who presents [facility] for dizziness.? Patient tells me that he has had dizziness for a long period of time, but today, he has had significant more episodes dizziness, and generalized weakness.? No vertigo, denies passing out, no headache, no blurry vision, no strokelike symptoms no facial droop, no slurring of her words.? Denies a cardiovascular history, no chest pain.? Denies history of smoking no history of COPD.? No dysuria, hematuria no history of UTI.? Denies any cough, any fevers.? Does report a good appetite he has been hydrating well.? He does tell me that about a week ago he had a significant dizziness episode and he fell and hit the back of his head.? Denies ever passing out.? He denies smoking, denies alcoholism, denies drug use. 02/10/2023:Patient states his dizziness has completely resolved. He has been able to stand up and walk with a walker to the bathroom. This however is not his baseline. He states he lives alone, and is getting weaker. 02/11/2023: Kidney function is improving and his strength is increasing. PT OT both recommend continued therapy. Patient states that he lives alone and does not socialize much. [facility]. He reports he is getting weaker and states he could use some help at home. He likes the [facility] Vitals/I&O/Wt Last Vital Signs Temp 97.5 F L 02/11/23 16:00 Pulse 64 02/11/23 16:00 Resp 17 02/11/23 16:00 BP 175/95 02/11/23 16:00 Pulse Ox 97 02/11/23 15:59 O2 Del Method Room Air 02/11/23 04:08 02/11/23 02/11/23 02/11/23 06:59 14:59 22:59 Intake Total 1000 / 3187.5 840 / 840 Output Total 820 / 2120 Balance 180 / 1067.5 840 / 840 Weight last 48 hrs Weight 99.79 kg Physical Exam Narrative: Older male. In no acute distress Lungs: Overall diminished. No wheezes rales or rhonchi Heart: Normal S1-S2 no loud murmur click gallop or rub Abdomen: Soft nontender nondistended positive bowel sounds no hepatosplenomegaly Extremities no clubbing cyanosis or edema Data 02/10/23 04:40 02/11/23 06:26 A&P Assessment and plan (1) Dizziness: Dizziness is resolved PT evaluated patient and found he was negative for Juarez-Hallpike maneuver. Recommend physical therapy. (2) TORY (acute kidney injury): Kidney function has improved from 2.7 on admission to 1.8 today. It appears he has a baseline of 1.1-1.2 and he has been up to 1.4 maximum in the past 4 years. Normal serum creatinine was 1.1 on 07/21/2021. It was slightly elevated at 1.3 on 10/21/2021. Continue another bag of fluids. (3) Acute hyperglycemia: Resolved after aggressive Humalog therapy yesterday Note patient's hemoglobin A1c is over 10 will need diabetic teaching and increased Lantus dosing (4) Generalized weakness: Home health care (5) Acidosis due to secondary diabetes: Resolved (6) Personal history of other malignant neoplasm of large intestine: Postsurgical resection with no chemoradiation. (7) Acute hyponatremia: Falsely negative due to hyperglycemia and now resolved with resolution of hyperglycemia Plan Patient has hypertension and his losartan was discontinued due to acute renal failure. Will use hydralazine as needed for tonight and increase his Cardizem dosing from 120 mg daily to 180 mg daily. Prescribed PRABHU talley. Plan to DC home with home health care tomorrow. Attestations Medical Necessity Statement*: Patient requires hospitalization, outpatient with observation, for dizziness, TORY, hyperglycemia Coding Level of Care Code Acute Code for [facility] Diagnoses Dizziness R42 TORY (acute kidney injury) N17.9 Acute hyperglycemia R73.9 Generalized weakness R53.1 Acidosis due to secondary diabetes E13.10 Personal history of other malignant neoplasm of large intestine Z85.038 Acute hyponatremia E87.1
[2023-02-11] MEDS: hyDRALAzine 25 mg Tablet PO (19:04)
[2023-02-11] MEDS: atorvastatin 40 mg Tablet PO (20:29)
[2023-02-11 20:34] LABS: Glucose Point of Care 107 mg/dL (70-110)
[2023-02-11] MEDS: enoxaparin 40 mg/0.4 mL Syringe SUBCUT (23:07)
[2023-02-12] VITALS (9 sets, daily range): BP systolic 151–186; BP diastolic 68–84; PULSE 57–68; RESP 16–18; TEMP 36.3–36.7; O2SAT 95–97
[2023-02-12] MEDS: buPROPion SR (12 HR) 150 mg Tablet 300 MG PO (05:41)
[2023-02-12] MEDS: hyDRALAzine 25 mg Tablet PO (06:25)
[2023-02-12 07:03] LABS: Glucose Point of Care 83 mg/dL (70-110)
[2023-02-12] MEDS: duloxetine 30 mg Capsule PO (08:04)
[2023-02-12] MEDS: finasteride 5 mg Tablet PO (08:04)
[2023-02-12] MEDS: pregabalin 75 mg Capsule PO (08:04)
[2023-02-12] MEDS: insulin glargine 100 units/1 mL 20 UNIT SUBCUT (08:10)
[2023-02-12] MEDS: dilTIAZem ER (24HR) 180 mg Capsule PO (09:13)
[2023-02-12 11:37] LABS: Glucose Point of Care 201 mg/dL (70-110)
[2023-02-12] MEDS: insulin lispro 100 unit/1 mL SUBCUT (12:00)
--- NOTE | 2023-02-12 12:02 | P.DS_ITS ---
Discharge Providers Date of Admission: 02/09/23 22:38 Date of Discharge: February 12, 2023 Attending Provider at Admission: Pradip Keller MD Attending Provider at Discharge: Gordon Yadav DO Primary Care Provider: GEORGETTE Clifton Diagnoses at Discharge Discharge Diagnosis (1) Dizziness: Status: Resolved (2) TORY (acute kidney injury): Status: Acute (3) Acute hyperglycemia: Status: Acute (4) Generalized weakness: Status: Acute (5) Acidosis due to secondary diabetes: Status: Resolved (6) Personal history of other malignant neoplasm of large intestine: Status: Chronic (7) Acute hyponatremia: Status: Acute Reason for Visit Reason for Visit: Dizzy Brief History: Amadeo Floyd is a 72 year old male with a past medical history of colon cancer, status post resection, History of BPH, history of type 2 diabetes mellitus, who presents [facility] for dizziness.? Patient tells me that he has had dizziness for a long period of time, but today, he has had significant more episodes dizziness, and generalized weakness.? No vertigo, denies passing out, no headache, no blurry vision, no strokelike symptoms no facial droop, no slurring of her words.? Denies a cardiovascular history, no chest pain.? Denies history of smoking no history of COPD.? No dysuria, hematuria no history of UTI.? Denies any cough, any fevers.? Does report a good appetite he has been hydrating well.? He does tell me that about a week ago he had a significant dizziness episode and he fell and hit the back of his head.? Denies ever passing out.? He denies smoking, denies alcoholism, denies drug use. In the emergency room he was found to have TORY and hyponatremia. He had acidosis with a low bicarb. And hyperglycemia. He will be admitted for treatment. Hospital Course Hospital Course The patient was placed on IV fluids his home medications that were nephrotoxic were discontinued including HCTZ Sofie and NSAID. Treated aggressively for hyperglycemia with larger doses of short acting insulin. T and OT worked with the patient PT found he did not have BPV. Concerns for home safety. Thus home health care will be consulted and call him early this week to set up care. Progressed well with ambulation with physical therapy. His kidney function was improving. The acidosis and anion gap resolved with fluids and insulin. He was given the following instructions : I suspect some of the kidney failure was due to a component of dehydration. Your diuretic HCTZ has been discontinued. a combination of a few other medicines likely contributed and I would like you to stop these medicines. Stop edodolac -there is a nonsteroidal anti-inflammatory like ibuprofen or Motrin. No NSAIDs in renal failure. stop hydrochlorothiazide. This is a diuretic and affects her kidney function. Lastly, stop losartan. This drug also has a negative effect on kidney function. Increased your diltiazem dose for your blood pressure control and you may resume doxazosin for blood pressure. If you are able to obtain a blood pressure cuff and measure your blood pressure a few times a week and report to your nurse practitioner Your blood work tested this for your kidney function. And I will write a prescription for this. Your disease is not under control. Your hemoglobin A1c is 10.5 and it should be less than 7. Please see your primary care physician or nurse practitioner for adjustment of your medication. Discharge Data Studies Completed and Pending Completed Studies During Hospitalization Category Date Time Status CT head wo con* [id number] Stat Cat Scan 02/09/23 19:57 Completed XR chest 1V [id number] Stat Exams 02/09/23 21:27 Completed Pending at discharge Category Date Time Status Beta-Hydroxybutyrate Stat Lab 02/10/23 08:46 Received Radiology Impressions Head CT 02/09/23 19:57 IMPRESSION: No acute intracranial abnormality. Chest X-Ray 02/09/23 21:27 IMPRESSION: Subtle area of infiltrate in the lingula. Laboratory Results WBC 5.25 10^3/uL (3.29-11.43) 02/10/23 04:40 RBC 3.78 10^6/uL (3.85-5.65) L 02/10/23 04:40 Hgb 11.30 g/dL (11.27-16.99) 02/10/23 04:40 Hct 35.5 % (37-53) L 02/10/23 04:40 MCV 93.9 fl (82-101) D 02/10/23 04:40 MCH 29.9 pg (27-33) 02/10/23 04:40 MCHC 31.8 g/dL (30-55) D 02/10/23 04:40 RDW 13.4 % (12.1-15.1) 02/10/23 04:40 Plt Count 214 10^3/cmm (157-399) 02/10/23 04:40 MPV 10.5 fL (7.4-10.4) H 02/10/23 04:40 Neut % (Auto) 56.7 % 02/10/23 04:40 Lymph % (Auto) 30.1 % 02/10/23 04:40 [place] % (Auto) 8.8 % 02/10/23 04:40 Eos % (Auto) 2.3 % 02/10/23 04:40 Baso % (Auto) 1.1 % 02/10/23 04:40 Neut # (Auto) 2.98 10^3/uL (1.8-7.7) 02/10/23 04:40 Lymph # (Auto) 1.6 10^3/uL (0.8-4.8) 02/10/23 04:40 [place] # (Auto) 0.5 10^3/uL (0.2-0.9) 02/10/23 04:40 Eos # (Auto) 0.1 10^3/uL (0.0-0.8) 02/10/23 04:40 Baso # (Auto) 0.1 10^3/uL (0.0-0.1) 02/10/23 04:40 Nucleated RBC % (auto) 0 % 02/10/23 04:40 Nucleated RBCs # 0.0 /100WBC 02/10/23 04:40 Specimen Type Arterial 02/09/23 21:40 Sample Site Brachial, left 02/09/23 21:40 ABG pH 7.32 (7.35-7.45) L 02/09/23 21:40 ABG pCO2 43.2 mmHg (35-45) 02/09/23 21:40 ABG pO2 61.5 mmHg (80.0-100.0) L 02/09/23 21:40 ABG HCO3 22.3 mmol/L (22-26) 02/09/23 21:40 ABG O2 Saturation 89.8 02/09/23 21:40 ABG Base Excess -3.7 mmol/L (-2.0-2.0) L 02/09/23 21:40 King Test N/a 02/09/23 21:40 A-a O2 Gradient 4.5 mmHg (5-10) L 02/09/23 21:40 Hematocrit 34.8 % (42-52) L 02/09/23 21:40 Hgb O2 Saturation 87.3 % (95-100) L 02/09/23 21:40 Carboxyhemoglobin 1.8 %THgb (0.4-20.1) 02/09/23 21:40 Methemoglobin 0.9 % (0.4-1.5) 02/09/23 21:40 Total Hemoglobin 11.4 g/dL (14-18) L 02/09/23 21:40 Sodium 133.0 mmol/L (131-143) 02/09/23 21:40 Potassium 3.4 mmol/L (3.5-5.0) L 02/09/23 21:40 Glucose 385.0 mg/dL (70-115) H 02/09/23 21:40 Ionized Calcium 1.2 mmol/L (1.1-1.4) 02/09/23 21:40 O2 Delivery Device None 02/09/23 21:40 O2 Liters/Min 0.0 % 02/09/23 21:40 FiO2 21.0 % 02/09/23 21:40 Control Electrician ID Alewe 02/09/23 21:40 Sodium 141 mmol/L (136-145) 02/11/23 06:26 Potassium 3.7 mmol/L (3.5-5.1) 02/11/23 06:26 Chloride 106 mmol/L (98-107) 02/11/23 06:26 Carbon Dioxide 23 mmol/L (22-29) 02/11/23 06:26 Anion Gap 15.7 (5-19) 02/11/23 06:26 BUN 40 mg/dL (8-23) H 02/11/23 06:26 Creatinine 1.8 mg/dL (0.7-1.2) H 02/11/23 06:26 GFR Calculation Not Reportable 02/11/23 06:26 Glucose 125 mg/dL (65-115) H 02/11/23 06:26 POC Glucose 201 mg/dL (70-110) H 02/12/23 11:11 Estimat Average Glucose 255 02/09/23 20:08 Hemoglobin A1c 10.5 % (4.0-6.0) H 02/09/23 20:08 Calculated Osmolality 303 mOsm/kg (285-295) H 02/11/23 06:26 Lactic Acid 1.4 mmol/L (0.5-2.2) 02/09/23 20:08 Calcium 9.1 mg/dL (8.5-10.5) 02/11/23 06:26 Phosphorus 3.9 mg/dL (2.5-4.5) 02/10/23 04:46 Magnesium 2.0 mg/dL (1.7-2.3) 02/10/23 04:46 Total Bilirubin 0.2 mg/dL (0.15-1.2) 02/10/23 04:46 AST 22 U/L (0-40) 02/10/23 04:46 ALT 21 U/L (0-41) 02/10/23 04:46 Alkaline Phosphatase 118 U/L (40-130) 02/10/23 04:46 Creatine Kinase 205 U/L (39-308) 02/09/23 20:08 Troponin T Gen 5 ng/L 30 ng/L (0-15) H 02/09/23 20:08 C-Reactive Protein 3.0 mg/L (0.0-4.9) 02/09/23 20:08 NT-Pro-B Natriuret Pep 44 pg/mL (0-125) 02/10/23 04:46 Total Protein 6.9 g/dL (6.6-8.7) 02/10/23 04:46 Albumin 4.0 g/dL (3.5-5.2) 02/10/23 04:46 Globulin 2.9 g/dL (1.3-4.6) 02/10/23 04:46 Triglycerides 229 mg/dL (0-150) H 02/09/23 20:08 Cholesterol 256 mg/dL (0-200) H 02/09/23 20:08 LDL Cholesterol, Calc 160 mg/dL (50-129) H 02/09/23 20:08 HDL Cholesterol 50 mg/dL (60-100) L 02/09/23 20:08 LDL/HDL Ratio 3.20 RATIO (0.00-3.22) 02/09/23 20:08 Cholesterol/HDL Ratio 5.12 mg/dL (1.0-5.00) H 02/09/23 20:08 Vitamin B12 481 pg/mL (232-1245) 02/09/23 20:08 Folate > 20.0 ng/mL (4.5-32.2) 02/09/23 20:08 Procalcitonin 0.10 ng/mL (0-0.5) 02/09/23 20:08 TSH 1.56 uIU/mL (0.27-4.20) 02/09/23 20:08 Urine Color Yellow (Yellow) 02/10/23 04:00 Urine Appearance Clear (CLEAR) 02/10/23 04:00 Urine pH 5 (5-7) 02/10/23 04:00 Ur Specific [place] 1.005 (1.005-1.030) 02/10/23 04:00 Urine Protein Neg (Negative) 02/10/23 04:00 Urine Glucose (UA) 2+ (Normal) H 02/10/23 04:00 Urine Ketones Negative (Negative) 02/10/23 04:00 Urine Blood Neg (Negative) 02/10/23 04:00 Urine Nitrate Negative (Negative) 02/10/23 04:00 Urine Bilirubin Neg (Negative) 02/10/23 04:00 Urine Urobilinogen Neg mg/dL (Negative) 02/10/23 04:00 Ur Leukocyte Esterase Negative (Negative) 02/10/23 04:00 Urine Opiates Screen Negative ng/mL (Negative) 02/10/23 04:00 Ur Barbiturates Screen Negative ng/mL (Negative) 02/10/23 04:00 Ur Phencyclidine Scrn Negative ng/mL (Negative) 02/10/23 04:00 Ur Amphetamines Screen Negative ng/mL (Negative) 02/10/23 04:00 U Benzodiazepines Scrn Negative ng/mL (Negative) 02/10/23 04:00 Urine Cocaine Screen Negative ng/mL (Negative) 02/10/23 04:00 U Marijuana (THC) Screen Negative ng/mL (Negative) 02/10/23 04:00 Ethyl Alcohol < 10 mg/dL (0-10) 02/09/23 20:08 Serum Ketones Negative (Negative) 02/09/23 20:08 Vitals Last Vital Signs Temp 97.7 F 02/12/23 11:14 Pulse 66 02/12/23 11:30 Resp 16 02/12/23 11:14 BP 176/84 02/12/23 11:30 Pulse Ox 97 02/12/23 11:14 O2 Del Method Room Air 02/12/23 11:14 Discharge Plan Discharge Patient Disposition: Home Condition: Stable Prescriptions: New Lipitor 40 mg tablet 40 mg PO QPM Qty: 30 0RF diltiazem HCl 180 mg capsule,extended release 24 hr 180 mg PO DAILY Qty: 30 0RF Continued omeprazole 20 mg capsule,delayed release(DR/EC) 20 mg PO QAM bupropion HCl [Wellbutrin SR] 150 mg tablet sustained-release 12 hr 300 mg PO QAM cholecalciferol (vitamin D3) [Vitamin D3] 50 mcg (2,000 unit) capsule 50 mcg PO DAILY duloxetine [Cymbalta] 30 mg capsule,delayed release(DR/EC) 30 mg PO DAILY ferrous sulfate 325 mg (65 mg iron) tablet 325 mg PO DAILY finasteride 5 mg tablet 5 mg PO DAILY Lantus Solostar U-100 Insulin 100 unit/mL (3 mL) insulin pen 45 unit SUBCUT DAILY pregabalin 75 mg capsule 75 mg PO BID multivitamin Tablet 1 tab PO QAM acarbose 50 mg Tablet 50 mg PO TID sildenafil 100 mg Tablet See Rx Instructions .ROUTE .COMPLEX PRN (Reason: ERECTILE DISF) Rx Instructions: TAKE ONE HALF TABLET BY MOUTH EVERY WEEK NEEDED FOR ERECTILE DISFUNCTION (TAKE 60 MINUTES PRIOR TO SEXUAL ACTIVITY) LIMIT 4 DOSES PER 30 DAYS. doxazosin 8 mg Tablet 8 mg PO BEDTIME gemfibrozil 600 mg Tablet 600 mg PO BID EpiPen 2-Marlon 0.3 mg/0.3 mL Auto-Injector 0.3 mg IM ONCE PRN (Reason: Allergic Reaction) Miralax 17 gram/dose Powder See Rx Instructions .ROUTE .COMPLEX Rx Instructions: 4 g orally MIX AND DRINK 1 CAPFUL BY MOUTH IN 8 OUNCES OF WATER ONCE DAILY TO PREVENT CONSTIPATION. fluocinonide 0.05 % Cream See Rx Instructions .ROUTE .COMPLEX Rx Instructions: APPLY SPARINGLY TO AFFECTED AREA(S) ONCE DAILY NEEDED FOR ITCHING/INFLAMMATION. (EXTERNAL USE ONLY) Artificial Tears (PF) Dropperette 1 drp ophthalmic (eye) BID Discontinued diltiazem HCl 120 mg capsule,extended release 24hr 120 mg PO DAILY hydrochlorothiazide 25 mg tablet 25 mg PO BID losartan 100 mg tablet 100 mg PO DAILY etodolac 400 mg Tablet 400 mg PO BID PRN (Reason: Pain) Discharge Orders: Discharge Order (Routine); Ordered 02/12/23 Ordered By: Gordon Yadav Other Ambulatory Orders: Basic Metabolic Panel (Routine) Timeframe: 1 Week Location: Determined by Patient Ordered By: Gordon Yadav Referrals: Laura Rdz SQUARING MACHINE OPERATOR [Primary Care Provider] - 7-10 days (We have notified your physician's clinic of the need for a follow-up appointment to be scheduled. If you have not heard from them within the next 2 business days, please call them directly. You may also reach out to our infrastructure manager at [phone] and she can assist you.) Discharge Diet: Diabetic Discharge Activity: Increase activity as tolerated and As per PT/OT instructions Patient Instructions: Diltiazem (By mouth), Atorvastatin (By mouth) Activity Restrictions/Additional Instructions: Been diagnosed with kidney failure I am unable to determine if this was a previous diagnosis. I suspect some of the kidney failure was due to a component of dehydration. Your diuretic HCTZ has been discontinued. State a combination of a few other medicines likely contributed and I would like you to stop these medicines. Stop edodolac -there is a nonsteroidal anti-inflammatory like ibuprofen or Motrin. No NSAIDs in renal failure. Op hydrochlorothiazide. This is a diuretic and affects her kidney function. Lastly, stop losartan. This drug also has a negative effect on kidney function. Increased your diltiazem dose for your blood pressure control and you may resume doxazosin for blood pressure. If you are able to obtain a blood pressure cuff and measure your blood pressure a few times a week and report to your nurse practitioner Your blood work tested this for your kidney function. And I will write a prescription for this. Your disease is not under control. Your hemoglobin A1c is 10.5 and it should be less than 7. Please see your primary care physician or nurse practitioner for adjustment of your medication. Home Health is being arranged. Discharge Attestations Time Spent in Discharge Care*: greater than 30 min Quality Metrics Clinical Quality Measures [ No reported AMI, CVA or VTE this stay] Coding Level of Care Code Acute Code for Chg Fwd Diagnoses Dizziness R42 TORY (acute kidney injury) N17.9 Acute hyperglycemia R73.9 Generalized weakness R53.1 Acidosis due to secondary diabetes E13.10 Personal history of other malignant neoplasm of large intestine Z85.038 Acute hyponatremia E87.1
--- NOTE | 2023-02-12 15:00 | PC.NURSE ---
Discussed discharge paperwork, medications, discontinued medications, changed medications and follow up appointments. Also educated the patient on charting blood pressure and has a BMP scheduled for 02/19/2023. Patient verbalized understanding.
[2023-02-15 00:19] LABS: Beta-Hydroxybutyrate 0.09 mmol/L
== END 2023-02-12 14:47 | disposition home health service (06) ==
LOC: ER 22:25 → MEDSURG 02-10 01:26
PROVIDERS: Admitting Provider Family Medicine; Emergency Provider Clinical Nurse Specialist Adult Health; PCP Nurse Practitioner Family; Visit Provider Internal Medicine
DX: R42 Dizziness and giddiness (principal); N17.9 Acute kidney failure, unspecified; R73.9 Hyperglycemia, unspecified; R53.1 Weakness; E13.10 Other specified diabetes mellitus with ketoacidosis without coma; Z85.038 Personal history of other malignant neoplasm of large intestine; E87.1 Hypo-osmolality and hyponatremia; N40.0 Benign prostatic hyperplasia without lower urinary tract symptoms; E11.9 Type 2 diabetes mellitus without complications; E86.0 Dehydration; Z90.49 Acquired absence of other specified parts of digestive tract; I10 Essential (primary) hypertension; Z79.4 Long term (current) use of insulin; Z87.891 Personal history of nicotine dependence
CPT/HCPCS: 36415; 36416; 36600; 70450; 71045; 80048; 80051; 80053; 80061; 80306; 80307; 81003; 82009; 82010; 82330; 82550; 82607; 82746; 82805; 82962; 83036; 83605; 83735; 83880; 84100; 84145; 84443; 84484; 85025; 86140; 93005; 94664; 96360; 96372; 97110; 97116; 97161; 97165; 99285; C9113; G0378; J1650; J1815; J7030

== ENCOUNTER → 2024-10-01 10:15 | Outpatient (BNVA) | payer OTHER, SELFPAY | PROVIDERS: PCP Nurse Practitioner Family; Visit Provider Nurse Practitioner Family | DX: D23.72 Other benign neoplasm of skin of left lower limb, including hip (principal); D23.71 Other benign neoplasm of skin of right lower limb, including hip; L91.8 Other hypertrophic disorders of the skin; L82.1 Other seborrheic keratosis; L81.4 Other melanin hyperpigmentation; L57.8 Other skin changes due to chronic exposure to nonionizing radiation; X32.XXXA Exposure to sunlight, initial encounter; Z12.83 Encounter for screening for malignant neoplasm of skin; D48.5 Neoplasm of uncertain behavior of skin | CPT/HCPCS: 11102; 99203 ==

== ENCOUNTER 2025-01-20 11:59 | Emergency (ER) | payer OTHER, SELFPAY ==
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
[2025-01-20 12:02] VITALS: BP 185/84; PULSE 73; RESP 18; TEMP 36.7; O2SAT 96
--- OUTSIDE RECORDS SUMMARY | 2025-01-20 12:02 | XMS_ITS | Clinical Summary ---
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
--- OUTSIDE RECORDS SUMMARY | 2025-01-20 12:02 | XMS_ITS | Encounter Summary ---
Author Organization [facility] Address [address] [place] [address] Care Team Providers Care Inspector Wire Rope Name Role Phone Unavailable Primary Care Provider Unavailabl e Encounter Details Date Type Department Care Team (Late st Contact Info) Description 03/03/2005 Outpatient Historical [facility] Plastic Surgery [address] [place] [address] Aditya Weston MD [address] [address] SURGERY FOLLOWUP NOS (Primary Dx) Social History Tobacco Use Types Packs/Day Years Used Date Smoking Tobacco: Never Assessed Sex and Gender Information Value Date Recorded Sex Assigned at Not on file Legal Sex Male 3:59 AM WORKPLACE RELATIONS ADVISER Gender Identity Not on file Sexual Orientation Not on file documented as of this encounter Plan of Treatment Not on file documented as of this encounter Visit Diagnoses Diagnosis Follow-up examination, following unspecified surgery- Primary documented in this encounter
--- OUTSIDE RECORDS SUMMARY | 2025-01-20 12:02 | XMS_ITS | Encounter Summary ---
Author Organization [facility] Address [address] [place] [address] Care Team Providers Care Derrick Man Name Role Phone Unavailable Primary Care Provider Unavailabl e Encounter Details Date Type Department Care Team (Late st Contact Info) Description 04/14/2005 Outpatient Historical [facility] Plastic Surgery [address] [place] [address] Aditya Weston MD [address] [address] SURGERY FOLLOWUP NOS (Primary Dx) Social History Tobacco Use Types Packs/Day Years Used Date Smoking Tobacco: Never Assessed Sex and Gender Information Value Date Recorded Sex Assigned at Not on file Legal Sex Male 3:59 AM INVENTORY ASSISTANT Gender Identity Not on file Sexual Orientation Not on file documented as of this encounter Plan of Treatment Not on file documented as of this encounter Visit Diagnoses Diagnosis Follow-up examination, following unspecified surgery- Primary documented in this encounter
--- OUTSIDE RECORDS SUMMARY | 2025-01-20 12:02 | XMS_ITS | Encounter Summary ---
Author Organization [facility], [facility] Address [address] [facility] [address] [place] [address] Phone Care Team Providers Care Set Up Operator Name Role Phone Sandy Browne MD Primary Care Provider [phone] Encounter Details Date Type Department Care Team (Late st Contact Info) Description 09/21/2021 Orders Only [facility] [employer] [address] [facility] [address] [place] [address] Type 2 diabetes mellitus with diabetic chronic kidney disease (HCC) Social History Tobacco Use Types Packs/Day Years Used Date Smoking Tobacco: Never Assessed Sex and Gender Information Value Date Recorded Sex Assigned at Not on file Legal Sex Male 12:12 PM EDT Gender Identity Not on file Sexual Orientation Not on file documented as of this encounter Plan of Treatment Upcoming Encounters Date Type Department Care Team (Late st Contact Info) Description 02/13/2025 2:30 PM CDT Office Visit [place] [employer], [facility] [address] [place] [id number] Susie Hanson NP [address] [place] [address] documented as of this encounter Visit Diagnoses Diagnosis Type 2 diabetes mellitus with diabetic chronic kidney disease (HCC) documented in this encounter Care Teams Set Up Operator Relationship Specialty Start Date End Date Sandy Browne MD [address] [place] [address] PCP - General Family Medicine 01/31/24 documented as of this encounter
--- OUTSIDE RECORDS SUMMARY | 2025-01-20 12:02 | XMS_ITS | Clinical Summary ---
Author Organization [facility] Address [address] 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 Gender Identity Not on file Sexual Orientation Not on file Plan of Treatment Health Maintenance Due Date Last Done Comments DIABETES ANNUAL FOOT EXAM 1966 DIABETES ANNUAL RETINAL EXAM 1966 DIABETES MICROALBUMIN ANNUAL SCREEN 1966 LDL CHOLESTEROL ANNUAL 1966 DIABETES HBA1C Q 6 MONTHS 03/22/2023 09/19/2022 RSV VACCINE (60+ or ) (1 - 1-dose 75+ series) 2023 INFLUENZA VACCINE (#1) 2024 , 03/16/2021, 01/24/2020, Additional history exists DTAP/TDAP/TD VACCINES (4 - T d or Tdap) 09/19/2032 09/19/2022, 09/27/2012, 03/22/2012, Additional history exists PNEUMOCOCCAL VACCINE 50+ YEARS Completed 1 06/01/2014, 08/28/2014, 05/15/2007 ZOSTER VACCINE Completed 09/19/2022, 05/0 07/2021, 11/01/2013 Insurance [facility]
--- OUTSIDE RECORDS SUMMARY | 2025-01-20 12:02 | XMS_ITS | Clinical Summary ---
Author Organization [facility] [employer], [facility] Address [address] [place] [address] Phone Care Team Providers Care Ambulance Assistant Name Role Phone Sandy Browne MD Primary Care Provider [phone] Allergies Active Allergy Reactions Criticality Noted Date Comments Sulfa Antibiotics 03/03/2022 Medications buPROPion XL (WELLBUTRIN XL) 300 MG 24 hr tablet Take 300 mg by mouth 1 (one) time each day Do not crush, chew, or split. Active cholecalciferol (VITAMIN D-3 SUPER STRENGTH) 50 MCG (2000 UT) tablet Take 2,000 Units by mouth 1 (one) time each day Active dilTIAZem (TIAZAC) 120 MG 24 hr capsule Take 120 mg by mouth 1 (one) time each day Active DULoxetine (CYMBALTA) [address] capsule Take 30 mg by mouth 1 (one) time each day Do not crush or chew. Active ferrous sulfate 325 (65 Fe) MG tablet Take 325 mg by mouth 1 (one) time each day with breakfast Active finasteride (PROSCAR) 5 MG tablet Take 5 mg by mouth 1 (one) time each day Do not crush, chew, or split. Active hydroCHLOROthia zide 25 MG tablet Take 25 mg by mouth in the morning and 25 mg in the evening. Active insulin glargine (LANTUS) 100 UNIT/ML injection Inject 40 Units under the skin 1 (one) time each day Active losartan (COZAAR) 100 MG tablet Take 100 mg by mouth 1 (one) time each day Active Multiple Vitamin (multivitamin) tablet Take 1 tablet by mouth 1 (one) time each day Active polyethylene glycol (GLYCOLAX) 17 g packet Take 17 g by mouth 1 (one) time each day Active Active Problems Problem Noted Date Diagnosed Date Tobacco use cessation education 01/31/2024 Diabetes mellitus with renal manifestations, type II or unspecified type, not stated as uncontrolled 06/27/2023 Anemia 06/27/2023 Essential hypertension 06/27/2023 Fibromyalgia 06/27/2023 Malignant neoplasm of transverse colon Posttraumatic stress disorder 06/27/2023 Other and unspecified hyperlipidemia 06/27/2023 Chronic kidney disease stage 3B 06/27/2023 Encounters Date Type Department Care Team Description 11/14/2024 Telephone [facility], [facility] [address] [place] [address] Emma Adams MD 11/04/2024 Results Follow-Up [facility], [facility] [address] [place] [address] Susie Hanson NP 11/04/2024 Documentation Only [facility], [facility] [address] [place] [address] Jazmine Bansal MA from Last 3 Months Family History Medical History Relation Comments Diabetes Father Dementia Mother Relation Status Comments Father Mother Social History Tobacco Use Types Packs/Day Years Used Date Smoking Tobacco: Former Cigarettes Q uit: 1985 Smokeless Tobacco: Never Tobacco Cessation:Counseling Given: Not Answered Alcohol Use Standard Drinks/Week Comments Never 0 (1 standard drink = 0.6 oz pur e alcohol) Sex and Gender Information Value Date Recorded Sex Assigned at Not on file Legal Sex Male 12:12 PM EDT Gender Identity Not on file Sexual Orientation Not on file Last Filed Vital Signs Vital Sign Reading Time Taken Comments Blood Pressure 172/90 01/31/2024 9:20 AM CDT Pulse 62 01/31/2024 9:20 AM CDT Temperature - - Respiratory Rate - - Oxygen Saturation 96% 01/31/2024 9:20 AM CDT Inhaled Oxygen Concentration - - Weight 95.3 kg (210 lb) 01/31/2024 9:20 AM CDT Height 175.3 cm (5' 9 ) 01/31/2024 9:20 AM CDT Body Mass Index 31.01 01/31/2024 9:20 AM CDT Plan of Treatment Upcoming Encounters Date Type Department Care Team (Late st Contact Info) Description 02/13/2025 2:30 PM CDT Office Visit [facility], [facility] [address] [place] [address] Susie Hanson NP [address] [place] [address] Health Maintenance Due Date Last Done Comments Pneumococcal Vaccine: 50+ Ye ars (1 of 2 - PCV) 1969 Diabetes: Ophthalmology Exam 09/21/2021 Diabetes: Pedal Pulse Checked 09/21/2021 Diabetes: Sensory Foot Exam 09/21/2021 Diabetes: Visual Foot Exam 09/21/2021 Diabetes: Hemoglobin A1C 12/20/2022 09/19/2022 Influenza Vaccine (#1) 2025 Hepatitis B Vaccine Aged Out No longe r eligible based on patient's age to complete this topic Procedures Procedure Name Priority Date/Time Associated Diagnosis Comments PROTEIN / CREATININE RATIO, URINE Routine 10/30/2024 12:59 PM CDT Chronic kidney disease stage 3B (HCC) VITAMIN D 25 HYDROXY Routine 10/30/2024 12:59 PM CDT Chronic kidney disease stage 3B (HCC) PTH, INTACT Routine 10/30/2024 12:59 PM CDT Chronic kidney disease stage 3B (HCC) CBC Routine 10/30/2024 12:59 PM CDT Chronic kidney disease stage 3B (HCC) Anemia in chronic kidney disease RENAL FUNCTION PANEL Routine 10/30/2024 12:59 PM CDT Chronic kidney disease stage 3B (HCC) HEMOGLOBIN A1C (EXTERNAL RESULT ENTRY) Routine 09/19/2022 9:59 AM CDT from Last 3 Months or Most Recently Relevant to Health Maintenance Results * Protein / creatinine ratio, urine (10/30/2024 12:59 PM CDT) Creatinine, Urine Random 20.0 mg/dL PRINT/EXTERNA L (NON-INTERFAC ED LABS) Urine Protein/Creati nine Ratio Unable to calc. mg/g creat PRINT/EXTERNA L (NON-INTERFAC ED LABS) Protein Urine Random <4.0 PRINT/EXTERNA L (NON-INTERFAC ED LABS) Urine Urine specimen obtained by clean catch procedure / Unknown 10/30/2024 12:59 PM CDT May Segundo NP LAB URINE ORDERABLES Final Resu lt Performing Organization Address [facility]/ZIP Co de Phone Number PRINT/EXTERNAL (NON-INTERFACED LABS) * Vit D 25 hydroxy (10/30/2024 12:59 PM CDT) [facility] Vitamin D, 25-OH, Total 46.0 ng/mL PRINT/EXTERNAL (NON-INTERFACE D LABS) Blood Venous blood / Unknown 10/30/2024 12:59 PM CDT Narrative PRINT/EXTERNAL (NON-INTERFACED LABS) - 11/04/2024 1:00 PM CDT [facility] Client #[id number] Emma Adams [address] [place] [address] May Segundo STRINGING MACHINE OPERATOR LAB BLOOD ORDERABLES Final Resu lt Performing Organization Address City/[facility]/ZIP Co de Phone Number PRINT/EXTERNAL (NON-INTERFACED LABS) * CBC (10/30/2024 12:59 PM CDT) [facility] WBC 6.4 K/uL PRINT/EXTE RNA L (NON-INTERFAC ED LABS) Red Blood Cell Count 3.98 PRINT/EXTERNA L (NON-INTERFAC ED LABS) Hemoglobin 12.2 g/dL PRINT/EXT KETTY L (NON-INTERFAC ED LABS) Hematocrit 38.5 % PRINT/EXT KETTY L (NON-INTERFAC ED LABS) MCV 96.7 PRINT/EXTE RNA L (NON-INTERFAC ED LABS) MCH 30.7 PRINT/EXTE RNA L (NON-INTERFAC ED LABS) MCHC 31.7 PRINT/EXTE RNA L (NON-INTERFAC ED LABS) RDW 13.2 PRINT/EXTE RNA L (NON-INTERFAC ED LABS) Platelet Count 232.0 PRINT /EXTERNA L (NON-INTERFAC ED LABS) MPV 9.6 PRINT/EXTE RNA L (NON-INTERFAC ED LABS) Absolute Neutrophils 3,776.0 PRINT/EXTERNA L (NON-INTERFAC ED LABS) Absolute Lymphocytes 1,882.0 PRINT/EXTERNA L (NON-INTERFAC ED LABS) Absolute Monocytes 512.0 PRINT/EXTERNA L (NON-INTERFAC ED LABS) Absolute Eosinophils 160.0 PRINT/EXTERNA L (NON-INTERFAC ED LABS) Absolute Basophils 70.0 PRINT/EXTERNA L (NON-INTERFAC ED LABS) Neutrophils 59.0 K/uL PRINT/EX TERNA L (NON-INTERFAC ED LABS) Lymphocytes 29.4 PRINT/EX TERNA L (NON-INTERFAC ED LABS) Monocytes 8.0 PRINT/EXTE RNA L (NON-INTERFAC ED LABS) Eosinophils 2.5 PRINT/EX TERNA L (NON-INTERFAC ED LABS) Basophils 1.1 PRINT/EXTE RNA L (NON-INTERFAC ED LABS) Blood Venous blood / Unknown 10/30/2024 12:59 PM CDT Narrative PRINT/EXTERNAL (NON-INTERFACED LABS) - 11/04/2024 1:00 PM CDT [facility] Client #[id number] Emma Adams [address] [place] [phone] May Segundo STRINGING MACHINE OPERATOR LAB BLOOD ORDERABLES Final Resu lt PRINT/EXTERNAL (NON-INTERFACED LABS) * PTH, intact (10/30/2024 12:59 PM CDT) Parathyroid Hormone, Intact 125.0 pg/mL PRINT/MATERIALS PLANNING ANALYST AL (NON-INTERFACE D LABS) Blood Venous blood / Unknown 10/30/2024 12:59 PM CDT Narrative PRINT/EXTERNAL (NON-INTERFACED LABS) - 11/04/2024 1:00 PM CDT [facility] Client #[id number] Emma Adams [address] [place] [address] May Segundo STRINGING MACHINE OPERATOR LAB BLOOD ORDERABLES Final Resu lt PRINT/EXTERNAL (NON-INTERFACED LABS) * Renal function panel (10/30/2024 12:59 PM CDT) Glucose 41.0 mg/dL PRINT/EXTE RNAL (NON-INTERFACE D LABS) BUN 22.0 mg/dL PRINT/EXTE RNAL (NON-INTERFACE D LABS) Creatinine 1.74 mg/dL PRINT/EXT ERNAL (NON-INTERFACE D LABS) Sodium 140 mEq/L PRINT/EXTE RNAL (NON-INTERFACE D LABS) Potassium 4.5 mEq/L PRINT/EXTE RNAL (NON-INTERFACE D LABS) Chloride 92.0 PRINT/EXTE RNAL (NON-INTERFACE D LABS) Carbon Dioxide 24.0 mmol/L PRINT /EXTERNAL (NON-INTERFACE D LABS) Calcium 9.1 mg/dL PRINT/EXTE RNAL (NON-INTERFACE D LABS) Phosphorus, Serum 10.8 mg/dL PRINT/EXTERNAL (NON-INTERFACE D LABS) Albumin (Blood) 4.7 g/dL PRIN T/EXTERNAL (NON-INTERFACE D LABS) eGFR 40.0 PRINT/EXTE RNAL (NON-INTERFACE D LABS) Blood Venous blood / Unknown 10/30/2024 12:59 PM CDT Narrative PRINT/EXTERNAL (NON-INTERFACED LABS) - 11/04/2024 1:00 PM CDT [facility] Client #[id number] Emma Adams [address] [place] [address] ~Whole blood, unspun or partially spun gel barrier tube was received more than 6 hours since collection. A false elevation of K, Phos, and LD as well as a false decrease In glucose may occur due to prolonged contact with red cells. ~Attempted to reach pt. By phone and M for return call re: Repeat lab due to incorrect Values. Thank you us May Segundo STRINGING MACHINE OPERATOR LAB BLOOD ORDERABLES Edited Res ult - Final PRINT/EXTERNAL (NON-INTERFACED LABS) * Hemoglobin A1C (09/19/2022 9:59 AM CDT) Hemoglobin A1C 9.9 Blood specimen (specimen) Venous blood / Unknown 09/19/2022 9:59 AM CDT Sandy Browne MD LAB BLOOD ORDERABLES Final Resul t from Last 3 Months or Most Recently Relevant to Health Maintenance Insurance [facility] Regions 1,2,3 (VACCN) Care Teams Ambulance Assistant Relationship Specialty Start Date End Date Sandy Browne MD [address] [place] [address] PCP - General Family Medicine 01/31/24
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
--- OUTSIDE RECORDS SUMMARY | 2025-01-20 12:03 | XMS_ITS | Encounter Summary ---
Author Organization [facility] Address [address] [place] [address] Care Team Providers Care Highway Technician Name Role Phone Unavailable Primary Care Provider Unavailabl e Encounter Details Date Type Department Care Team (Late st Contact Info) Description 02/26/2005 Emergency [facility] Emergency Department [address] [place] [address] Aditya Weston MD [address] [facility] [address] [place] [address] AMPUTATION FINGER (Primary Dx) Social History Tobacco Use Types Packs/Day Years Used Date Smoking Tobacco: Never Assessed Sex and Gender Information Value Date Recorded Sex Assigned at Not on file Legal Sex Male 3:59 AM BOMBSIGHT SPECIALIST Gender Identity Not on file Sexual Orientation Not on file documented as of this encounter Plan of Treatment Not on file documented as of this encounter Procedures Procedure Name Priority Date/Time Associated Diagnosis Comments POC GLUCOSE Routine 02/26/2005 9:59 PM CDT POC GLUCOSE Routine 02/26/2005 6:50 PM CDT documented in this encounter Results * (ABNORMAL) POC GLUCOSE (02/26/2005 9:59 PM CDT) GLUCOSE POC 103(H) 60 - 100 mg/dL INTERFACE SYSTEM 02/26/2005 9:59 PM CDT us Physician Sj Ed POINT OF CARE TESTING Final Resu lt INTERFACE SYSTEM Refer to clinic/hospital department * POC GLUCOSE (02/26/2005 6:50 PM CDT) GLUCOSE POC 100 60 - 100 mg/dL INTERFACE SYSTEM 02/26/2005 6:50 PM CDT us Physician Sj Ed POINT OF CARE TESTING Final Resu lt INTERFACE SYSTEM Refer to clinic/hospital department documented in this encounter Visit Diagnoses Diagnosis Traumatic amputation of other finger(s) (complete) (partial), without mention of complication- Primary documented in this encounter
--- OUTSIDE RECORDS SUMMARY | 2025-01-20 12:03 | XMS_ITS | Encounter Summary ---
Author Organization [facility] Address [address] [place] [address] Care Team Providers Care Furniture Assembly Supervisor Name Role Phone Unavailable Primary Care Provider Unavailabl e Encounter Details Date Type Department Care Team (Late st Contact Info) Description 03/17/2005 Outpatient Historical [facility] Plastic Surgery [address] [place] [address] Aditya Weston MD [address] [address] SURGERY FOLLOWUP NOS (Primary Dx) Social History Tobacco Use Types Packs/Day Years Used Date Smoking Tobacco: Never Assessed Sex and Gender Information Value Date Recorded Sex Assigned at Not on file Legal Sex Male 3:59 AM CUSTOMER ENGAGEMENT REPRESENTATIVE Gender Identity Not on file Sexual Orientation Not on file documented as of this encounter Plan of Treatment Not on file documented as of this encounter Visit Diagnoses Diagnosis Follow-up examination, following unspecified surgery- Primary documented in this encounter
== END 2025-01-20 12:58 | disposition home or self-care (01) ==
PROVIDERS: Emergency Provider Emergency Medicine; PCP Nurse Practitioner Family
DX: S16.1XXA Strain of muscle, fascia and tendon at neck level, initial encounter (principal); S09.90XA Unspecified injury of head, initial encounter; Z87.891 Personal history of nicotine dependence; E11.9 Type 2 diabetes mellitus without complications; Z85.038 Personal history of other malignant neoplasm of large intestine; V89.2XXA Person injured in unspecified motor-vehicle accident, traffic, initial encounter
CPT/HCPCS: 70450; 72125; 99284

== ENCOUNTER 2025-04-22 13:11 | Emergency (ER) | payer OTHER, SELFPAY ==
[2025-04-22 13:12] VITALS: BP 169/70; PULSE 63; RESP 16; TEMP 36.5; O2SAT 97
--- NOTE | 2025-04-22 13:12 | W.ED.GENADLT ---
HPI - General Adult General: Chief complaint: Dizziness Stated complaint: Dizzy in Am Time Seen by Provider: 04/22/25 13:12 History of Present Illness: 75-year-old male presents emergency room complaining of episodes of dizziness. When he first stands in the morning he will get dizzy for about a minute and then resolves spontaneously. He states this has been going on for months has not noticed any other weakness difficulty with gait or balance difficulty with coordination or dexterity. No vision changes. He does not have any episodes throughout the course of the day. He denies any chest pain or pressure. No shortness of breath no fever sweats or chills. Associated symptoms: Deny chest pain, dyspnea or rash Related Data Home Medications ?Medication ?Instructions ?Recorded ?Confirmed bupropion HCl 150 mg tablet,12 hr 300 mg PO QAM 11/06/19 02/10/23 sustained-release (Wellbutrin SR) cholecalciferol (vitamin D3) 50 50 mcg PO DAILY 11/06/19 02/10/23 mcg (2,000 unit) capsule (Vitamin D3) duloxetine 30 mg capsule,delayed 30 mg PO DAILY 11/06/19 02/10/23 release (Cymbalta) ferrous sulfate 325 mg (65 mg 325 mg PO DAILY 11/06/19 02/10/23 iron) tablet finasteride 5 mg tablet 5 mg PO DAILY 11/06/19 02/10/23 insulin glargine 100 unit/mL (3 45 unit SUBCUT DAILY 11/06/19 02/10/23 mL) subcutaneous pen (Lantus Solostar U-100 Insulin) omeprazole 20 mg capsule,delayed 20 mg PO QAM 11/06/19 02/10/23 release pregabalin 75 mg capsule 75 mg PO BID 11/06/19 02/10/23 acarbose 50 mg tablet 50 mg PO TID 02/10/23 02/10/23 dextran 70-hypromellose eye drops 1 drp ophthalmic (eye) BID 02/10/23 02/10/23 in a dropperette (Artificial Tears (PF) drops in a dropperette) doxazosin 8 mg tablet 8 mg PO BEDTIME 02/10/23 02/10/23 epinephrine 0.3 mg/0.3 mL 0.3 mg IM ONCE PRN Allergic 02/10/23 02/10/23 injection, auto-injector (EpiPen Reaction 2-Marlon) fluocinonide 0.05 % topical cream See Rx Instructions .Route .COMPLEX 02/10/23 02/10/23 gemfibrozil 600 mg tablet 600 mg PO BID 02/10/23 02/10/23 multivitamin 1 tab PO QAM 02/10/23 02/10/23 polyethylene glycol 3350 17 See Rx Instructions .Route .COMPLEX 02/10/23 02/10/23 gram/dose oral powder (Miralax) sildenafil 100 mg tablet See Rx Instructions .Route 02/10/23 02/10/23 .COMPLEX PRN ERECTILE DISF Previous Rx's ?Medication ?Instructions ?Recorded atorvastatin 40 mg tablet (Lipitor) 40 mg PO QPM #30 tabs 02/12/23 diltiazem HCl 180 mg capsule,24 180 mg PO DAILY #30 caps 02/12/23 hr,extended release Allergies Allergy/AdvReac Type Severity Reaction Status Date / Time Sulfa (Sulfonamide Allergy Intermediate Swelling Verified 10/21/21 13:43 Antibiotics) Review of Systems Const: Denies: fever(s) or chills Card: Denies: chest pain Resp: Denies: dyspnea GI: Denies: abdominal pain : Denies: dysuria, urinary frequency or urinary urgency Musc: Denies: neck pain or back pain Skin/Breast: Denies: rash PFSH ED PFSH: Medical History Hypertension Diabetes History of type 2 diabetes mellitus Malignant neoplasm of ascending colon (~01/01/18) Personal history of other malignant neoplasm of large intestine (~05/27/19) B12 deficiency History of colon cancer Vitamin B12 deficiency Peripheral neuropathy Surgical History History of colonoscopy with polypectomy 2018 History of colon resection 2017 Family History Mother Alzheimer's dementia Other Diabetes Stroke Denies family history of CAD (coronary artery disease) Cancer Hypertension Social History Smoking and tobacco/nicotine status: former use of tobacco/nicotine Quit status (tobacco/nicotine): has quit using Year quit tobacco: 1987 Alcohol intake: former Substance/Drug Use: never Physical Exam Const: GENERAL APPEARANCE: cooperative ORIENTATION/CONSCIOUSNESS: Yes awake, Yes oriented to person, Yes oriented to place and Yes oriented to time HENMT: COMMON NORMALS: normocephalic, atraumatic and hearing grossly normal bilaterally HEAD & SCALP: normocephalic and atraumatic Resp: COMMON NORMALS: normal respiratory effort, No retractions, No use of accessory muscles and clear to auscultation bilaterally AUSCULTATION: clear to auscultation bilaterally Cardio: COMMON NORMALS: regular rate, regular rhythm and No murmurs present (Cardio) RATE: regular rate RHYTHM: regular rhythm GI: COMMON NORMALS: Soft to palpation and No hepatosplenomegaly present AUSCULTATION: Yes normoactive bowel sounds PALPATION: Yes Soft to palpation, No Tenderness to palpation present (GI), No Guarding due to palpation present (GI) and Yes No hepatosplenomegaly present Extremity: COMMON NORMALS: normal to inspection, capillary refill normal, no clubbing, cyanosis or edema, no calf tenderness and no pedal edema Neuro: SENSORIUM/ORIENTATION: Yes oriented to person, Yes oriented to place and Yes oriented to time Skin: COMMON NORMALS: no rashes or lesions noted GENERAL SKIN EXAM: no rashes or lesions noted Course Vital Signs: Vital signs: Vital Signs Temperature 97.7 F 04/22/25 13:12 Pulse Rate 62 04/22/25 15:38 Respiratory Rate 16 04/22/25 15:38 Blood Pressure 159/95 04/22/25 15:38 Pulse Oximetry 95 04/22/25 15:38 Oxygen Delivery Me thod Room Air 04/22/25 15:38 MDM - General Adult Medical Decision Making Medical decision making Social determinants: None I reviewed the patient's medical record. I reviewed the patient's current home meds. Alternate historians: None Differential diagnosis: TIA versus CVA versus orthostasis versus medication side effect Lab Review: Labs reviewed as found in the chart. CBC is all within normal limits no signs of anemia. Creatinine 1.8 which appears to be at his baseline compared to previous creatinines BUN 29. Glucose 179 LFTs normal troponin trend negative. Imaging:None Assessment of risk Level of risk: Moderate Hospitalization considerations: No indication for hospitalization Reexamination: No further symptoms. Assessment and plan: Suspect patient is having orthostasis early in the morning he is on doxazosin takes rather large dose at night additionally he is on diltiazem. Neurologically is intact no focal neurologic deficits are noted. He is not having any further symptoms at this time. It is noted in his old history that he has history of anemia however his CBC and RBC indices are normal today. Discharge patient home have him follow-up with his primary care doctor. Did not make any adjustments in his medications given his blood pressures already mildly elevated. Should follow-up with his primary care doctor. Lab Data 04/22/25 13:30 04/22/25 13:30 Laboratory Results WBC 6.49 10^3/uL (3.29-11.43) 04/22/25 13:30 RBC 4.32 10^6/uL (3.85-5.65) 04/22/25 13:30 Hgb 12.40 g/dL (11.27-16.99) 04/22/25 13:30 Hct 39.1 % (37-53) 04/22/25 13:30 MCV 90.5 fl (82-101) 04/22/25 13:30 MCH 28.7 pg (27-33) 04/22/25 13:30 MCHC 31.7 g/dL (30-55) 04/22/25 13:30 RDW 13.6 % (12.1-15.1) 04/22/25 13:30 Plt Count 216 10^3/cmm (157-399) 04/22/25 13:30 MPV 10.0 fL (7.4-10.4) 04/22/25 13:30 Neut % (Auto) 59.7 % 04/22/25 13:30 Lymph % (Auto) 28.0 % 04/22/25 13:30 [place] % (Auto) 7.4 % 04/22/25 13:30 Eos % (Auto) 3.5 % 04/22/25 13:30 Baso % (Auto) 0.9 % 04/22/25 13:30 Neut # (Auto) 3.87 10^3/uL (1.8-7.7) 04/22/25 13:30 Lymph # (Auto) 1.8 10^3/uL (0.8-4.8) 04/22/25 13:30 [place] # (Auto) 0.5 10^3/uL (0.2-0.9) 04/22/25 13:30 Eos # (Auto) 0.2 10^3/uL (0.0-0.8) 04/22/25 13:30 Baso # (Auto) 0.1 10^3/uL (0.0-0.1) 04/22/25 13:30 Nucleated RBC % (auto) 0 % 04/22/25 13:30 Nucleated RBCs # 0.0 /100WBC 04/22/25 13:30 Sodium 137 mmol/L (136-145) 04/22/25 13:30 Potassium 4.0 mmol/L (3.5-5.1) 04/22/25 13:30 Chloride 99 mmol/L (98-107) 04/22/25 13:30 Carbon Dioxide 24 mmol/L (22-29) 04/22/25 13:30 Anion Gap 18.0 (5-19) 04/22/25 13:30 BUN 29 mg/dL (8-23) H 04/22/25 13:30 Creatinine 1.8 mg/dL (0.7-1.2) H 04/22/25 13:30 GFR Calculation Not Reportable 04/22/25 13:30 Glucose 179 mg/dL (65-115) H 04/22/25 13:30 Calculated Osmolality 294 mOsm/kg (285-295) 04/22/25 13:30 Calcium 9.3 mg/dL (8.5-10.5) 04/22/25 13:30 Total Bilirubin 0.3 mg/dL (0.15-1.2) 04/22/25 13:30 AST 13 U/L (0-40) 04/22/25 13:30 ALT 12 U/L (0-41) 04/22/25 13:30 Alkaline Phosphatase 55 U/L (40-130) 04/22/25 13:30 Troponin T Baseline 27 ng/L (0-15) H 04/22/25 13:30 Troponin T 60 Minute 11.73 ng/L (0-15) 04/22/25 14:27 Delta Troponin T -15.27 ABS# (0-10) L 04/22/25 14:27 Total Protein 7.2 g/dL (6.6-8.7) 04/22/25 13:30 Albumin 4.8 g/dL (3.5-5.2) 04/22/25 13:30 Globulin 2.4 g/dL (1.3-4.6) 04/22/25 13:30 Urine Color Yellow (Yellow) 04/22/25 13:28 Urine Appearance Clear (CLEAR) 04/22/25 13:28 Urine pH 7.0 (5-7) 04/22/25 13:28 Ur Specific [place] 1.008 (1.005-1.030) 04/22/25 13:28 Urine Protein Negative (Negative) 04/22/25 13:28 Urine Glucose (UA) 3+ (Normal) H 04/22/25 13:28 Urine Ketones Negative (Negative) 04/22/25 13:28 Urine Blood Negative (Negative) 04/22/25 13:28 Urine Nitrate Negative (Negative) 04/22/25 13:28 Urine Bilirubin Negative (Negative) 04/22/25 13:28 Urine Urobilinogen 1.0 mg/dL (Negative) 04/22/25 13:28 Ur Leukocyte Esterase Negative (Negative) 04/22/25 13:28 Urine RBC 0-2 /hpf (0-2) 04/22/25 13:28 Urine WBC 0-5 /hpf (0-5) 04/22/25 13:28 Ur Squamous Epith Cells 0-5 /hpf (0-5) 04/22/25 13:28 Amorphous Sediment Not Reportable 04/22/25 13:28 Urine Bacteria None seen /hpf (NONE) 04/22/25 13:28 Hyaline Casts 0-4 /lpf H 04/22/25 13:28 All radiology interpretation(s) finalized by discharge EKG Data EKG 1: I personally reviewed and interpreted this EKG as follows: Interpretation: EKG 04/22/2025 1316 sinus rhythm rate of 64 SC interval 184 QTc [address] elevation. Compared to the EKG 02/09/2023 no acute changes. No STEMI on today's EKG EKG 2: I personally reviewed and interpreted this EKG as follows: Interpretation: EKG 04/22/2025 1506 sinus rhythm rate of 61 SC interval 164 QTc 425. EKG done at earlier same day no acute changes no STEMI Discharge Plan Discharge Patient Disposition: Home Clinical Impression: Generalized weakness, Neuropathy, idiopathic Condition: Stable Prescriptions: No Action omeprazole 20 mg capsule,delayed release(DR/EC) 20 mg PO QAM bupropion HCl [Wellbutrin SR] 150 mg tablet sustained-release 12 hr 300 mg PO QAM cholecalciferol (vitamin D3) [Vitamin D3] 50 mcg (2,000 unit) capsule 50 mcg PO DAILY duloxetine [Cymbalta] 30 mg capsule,delayed release(DR/EC) 30 mg PO DAILY ferrous sulfate 325 mg (65 mg iron) tablet 325 mg PO DAILY finasteride 5 mg tablet 5 mg PO DAILY Lantus Solostar U-100 Insulin 100 unit/mL (3 mL) insulin pen 45 unit SUBCUT DAILY pregabalin 75 mg capsule 75 mg PO BID multivitamin Tablet 1 tab PO QAM acarbose 50 mg Tablet 50 mg PO TID sildenafil 100 mg Tablet See Rx Instructions .ROUTE .COMPLEX PRN (Reason: ERECTILE DISF) Rx Instructions: TAKE ONE HALF TABLET BY MOUTH EVERY WEEK NEEDED FOR ERECTILE DISFUNCTION (TAKE 60 MINUTES PRIOR TO SEXUAL ACTIVITY) LIMIT 4 DOSES PER 30 DAYS. doxazosin 8 mg Tablet 8 mg PO BEDTIME gemfibrozil 600 mg Tablet 600 mg PO BID EpiPen 2-Marlon 0.3 mg/0.3 mL Auto-Injector 0.3 mg IM ONCE PRN (Reason: Allergic Reaction) Miralax 17 gram/dose Powder See Rx Instructions .ROUTE .COMPLEX Rx Instructions: 4 g orally MIX AND DRINK 1 CAPFUL BY MOUTH IN 8 OUNCES OF WATER ONCE DAILY TO PREVENT CONSTIPATION. fluocinonide 0.05 % Cream See Rx Instructions .ROUTE .COMPLEX Rx Instructions: APPLY SPARINGLY TO AFFECTED AREA(S) ONCE DAILY NEEDED FOR ITCHING/INFLAMMATION. (EXTERNAL USE ONLY) Artificial Tears (PF) Dropperette 1 drp ophthalmic (eye) BID Lipitor 40 mg tablet 40 mg PO QPM Qty: 30 0RF diltiazem HCl 180 mg capsule,extended release 24 hr 180 mg PO DAILY Qty: 30 0RF Discharge Orders: Discharge ED (Routine); Ordered 04/22/25 Ordered By: Eusebio Sen Referrals: Laura Rdz, TRACK REPAIR PERSON [Primary Care Provider, Nurse Practitioner] Discharge Diet: Usual diet Discharge Activity: Increase activity as tolerated Patient Instructions: Opioid Safety, Pain Management, Patient Portal & [place] Instructions Activity Restrictions/Additional Instructions: Thank you for choosing [facility] for your healthcare needs today. It is very important that you follow up as instructed or that you return to the Emergency Department should you have concerns or if your condition changes or worsens in any way. Emergency department visits are focused on emergent conditions, in some cases you may require further evaluation on an outpatient basis. You are seen in the emergency room with reports of dizziness and difficulty standing first in the morning. On exam there is no evidence of stroke. Your laboratory test showed your chronic kidney disease which is actually slightly improved but there is no other signs of any acute abnormalities. Suspect you may benefit from neurologic evaluation. Discussed with your primary care provider (Please note that included in your discharge packet is information concerning opioid safety and pain management. This information is given to all patients were discharged from the ER regardless of their discharge diagnosis or the medicines they usually take or are prescribed.) Print Language: Ukrainian Coding Level of Care Code ED Cook Apprentice for Darrell Smith NIH stroke score NIHSS Level Of Consciousness - 1a: 0 Level Of Consciousness Questions - 1b: Both Correct Level Of Consciousness Commands - 1c: Both Correct Best Gaze - 2: Normal Visual Menendez - 3: No Visual Loss Facial Palsy - 4: Normal Motor Arm Right - 5: No Drift Motor Arm Left - 5: No Drift Motor Leg Right - 6: No Drift Motor Leg Left - 6: No Drift Limb Ataxia - 7: Absent Sensory - 8: Normal Best Language - 9: No Aphasia Dysarthia - 10: Normal Extinction And Inattention - 11: 0 Score Total Score: 0
--- NOTE | 2025-04-22 13:16 | ECG_ITS ---
[employer] Test Date: 2025-04-22 Pat Name: Amadeo Floyd Department: Room: Gender: Male Medical Affairs Manager: : 1950 Requested By: Eusebio Paiz Order Number: [id number] Catherine MD: Cha Oliva M.D. Measurements Intervals [place] Rate: 64 P: -59 CO: 184 QRS: 56 QRSD: 105 T: 98 QT: 284 QTc: 294 Interpretive Statements SINUS RHYTHM WITH OCCASIONAL SUPRAVENTRICULAR PREMATURE COMPLEXES NONSPECIFIC T-WAVE ABNORMALITY Compared to ECG 02/09/2023 20:11:10 Intraventricular conduction delay no longer present T-wave abnormality still present Electronically Signed On 04-24-2025 17:33:07 EVENT COORDINATOR MARKETING AND SALES by Cha Oliva M.D. [email or web address]
[2025-04-22 13:21] VITALS: BP 169/70; O2SAT 97
[2025-04-22 13:38] LABS: Hematocrit 39.1 % (37-53); Hemoglobin 12.40 g/dL (11.27-16.99); Mean Corpuscular HGB Conc 31.7 g/dL (30-55); Mean Corpuscular Hemoglobin 28.7 pg (27-33); Mean Corpuscular Volume 90.5 fl (82-101); Nucleated Red Blood Cells % 0 %; Platelet Count 216 10^3/cmm (157-399); Red Blood Count 4.32 10^6/uL (3.85-5.65); White Blood Count 6.49 10^3/uL (3.29-11.43)
[2025-04-22 13:50] LABS: Glucose Urine UA 3+ (Normal); Nitrate Urine Negative (Negative); Specific Gravity, Urine 1.008 (1.005-1.030)
[2025-04-22 13:55] LABS: Add Urine Microscopic? YES
[2025-04-22 13:57] LABS: Troponin(5th) Baseline 27 ng/L (0-15)
[2025-04-22 14:01] LABS: Alanine Aminotransferase 12 U/L (0-41); Albumin Level 4.8 g/dL (3.5-5.2); Alkaline Phosphatase 55 U/L (40-130); Anion Gap 18.0 (5-19); Aspartate Amino Transferase 13 U/L (0-40); Blood Urea Nitrogen 29 mg/dL (8-23); Calcium 9.3 mg/dL (8.5-10.5); Carbon Dioxide 24 mmol/L (22-29); Chloride 99 mmol/L (98-107); Globulin 2.4 g/dL (1.3-4.6); Glucose 179 mg/dL (65-115); Osmolality Calculated 294 mOsm/kg (285-295); Potassium 4.0 mmol/L (3.5-5.1); Sodium 137 mmol/L (136-145); Total Protein 7.2 g/dL (6.6-8.7)
--- NOTE | 2025-04-22 15:06 | ECG_ITS ---
[facility] Date: 2025-04-22 Pat Name: Amadeo Floyd Department: Room: Gender: Male Pmp Certified Project Manager: : 1950 Requested By: Eusebio Paiz Order Number: [id number] Catherine MD: Cha Oliva M.D. Measurements Intervals [place] Rate: 61 P: 242 NM: 164 QRS: 56 QRSD: 99 T: 124 QT: 421 QTc: 425 Interpretive Statements SINUS RHYTHM NONSPECIFIC T-WAVE ABNORMALITY Compared to ECG 04/22/2025 13:16:28 No significant changes Electronically Signed On 04-24-2025 18:00:42 AGRICULTURAL SCIENCE PROFESSOR by Cha Oliva M.D. [email or web address]
[2025-04-22 15:38] VITALS: BP 159/95; PULSE 62; RESP 16; O2SAT 95
== END 2025-04-22 17:12 | disposition home or self-care (01) ==
PROVIDERS: Emergency Provider Family Medicine; PCP Nurse Practitioner Family
DX: R53.1 Weakness (principal); E11.40 Type 2 diabetes mellitus with diabetic neuropathy, unspecified; I10 Essential (primary) hypertension; Z85.038 Personal history of other malignant neoplasm of large intestine; Z87.891 Personal history of nicotine dependence
CPT/HCPCS: 36415; 80053; 81001; 84484; 85025; 93005; 99284